=== PATIENT | male | born 1930 | race Caucasian/White ===

== ENCOUNTER 2016-08-02 20:04 | Inpatient (IN) | payer MEDICARE ==
[2016-08-02 20:56] LABS: Hematocrit 22 % (42-52); Mean Corpuscular HGB Conc 33 g/dl (31-36); Mean Corpuscular Hemoglobin 31 pg (27-31); Mean Corpuscular Volume 95 fL (80-94); Mean Platelet Volume 7 um3 (7.4-10.4); Red Blood Count 2.26 10^6/ul (4.0-5.4); Red Cell Distribution Width 15 % (10.5-15); White Blood Count 9.1 10^3/ul (3.5-10.8)
[2016-08-02 21:12] LABS: ALT 9 U/L (7-52); AST 12 U/L (13-39); Albumin 2.9 g/dL (3.2-5.2); Alkaline Phosphatase 44 U/L (34-104); Anion Gap 5 mmol/L (2-11); BUN/Creatinine Ratio 47.3 (8-20); Blood Urea Nitrogen 61 mg/dL (6-24); CO2 Carbon Dioxide 22 mmol/L (22-32); Chloride 108 mmol/L (101-111); EGFR African American 67.8 (>60); EGFR Non-African American 52.7 (>60); Glucose 119 mg/dL (70-100); Potassium 4.9 mmol/L (3.5-5.0); Sodium 135 mmol/L (133-145); Total Protein 4.9 g/dL (6.4-8.9)
--- NOTE | 2016-08-02 21:22 | HP ---
H&P (Free Text) History and Physical: PCP: Gonzalez Jimenez MD Date/Time of Evaluation: 08/02/2016 2100 CC: dark stools, dizziness HPI: Mr Bridges is an 85YO male poor historian who reports 2-3 days (his interjects 'weeks') of black pasty stool which he states has no odor (his interjects that they are much more foul smelling than typical). He denies abdominal pain, but his states he has been complaining of a stomache ache daily for the past several days. He denies HX bleeding, heart problems, liver problems, renal problems, and history of cancer. He takes 2 diclofenac QAM and 1 QHS along with an occasional OTC ibuprofen. He admits to drinking 2-4 beers/ day and 1-2 shots of vodka daily. He son-in-law (a retired highway patrolman) pulls me aside to inform that he is a "horrible boozer". Mr Bridges denies chest pain, SOB, N/V, palpitations, and F/C. Today he became light-headed aggravated by standing and "nearly passed out" prompting this evaluation. Additionally his family is concerned about worsening L low back/hip pain and an unintentional ~40 # weight loss over the past year. While in ED he was sent to radiology for an XRY of the L hip. When moving from the ED bed to the radiology table, he abruptly briefly syncopized to awaken reporting L shoulder pain and chest pressure for which a STAT ECG was negative for STEMI or ischemia. ~1week ago he was working on some land using a tractor near a drop off when the edge of the drop off gave way. He grabbed the tractor trying to prevent it from sliding over the edge and was pulled down by it sustaining abrasions and small skin tears to BLE, but denies head injury or LOC. In 2011 he was admitted for pneumonia with a necrotic mass in the RLL and separate mass in the LLL associated with significant weight loss at that time, but neither he nor his can give details. PMedHx COPD HTN RLL pulmonary abscess 2011 stable LLL lung mass unintentional weight loss alcoholism OA Medications Nursing to reconcile. Allergies Penicillins [PCN] Allergy (Verified 08/09/13 19:23) Itching PSurgHx umbilical & ventral hernia repairs ORIF R hip FX B ankle ORIFs SocHx: former smoker quit >20 years ago with ~50PYHX, active alcoholic admitting to 2-4beers/day and 1-2 shots of vodka, no recreational drugs; , lives with his ; [facility] [employer] [place] full code status FamHx: Mother passed in her 80s 2nd lung disease. 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 Otherwise positive for HTN, HLD , prostate CA, & rheumatoid arthritis. ROS: as above, otherwise reviewed and all were negative Constitutional: NAD, normally developed, well-nourished elderly white male vitals: Vital Signs Temp 37.0 C 08/02/16 20:15 Pulse 94 08/02/16 21:30 Resp 18 08/02/16 20:15 BP 139/94 08/02/16 21:30 Pulse Ox 95 08/02/16 21:30 Intake & Output 08/01/16 08/02/16 08/02/16 23:59 11:59 23:59 Weight 63.503 kg HEENM: atraumatic; sclera/conjunctiva: non-icteric/clear; hearing: clinically mild to moderately decreased; oropharynx: clear, mucosa tacky Neck: soft tissue: non-tender; thyroid: normal Pulmonary: clear to auscultation bilaterally, good aeration, no accessory muscle use CV: RR/RR, normal S1S2, no carotid bruit, no jugular venous distention, 2+ B DP/ PT, no edema Abdominal: soft, non-distended, non-tender, no rebound/guarding/rigidity, normoactive bowel sounds, no hepatosplenomegaly or masses, no costovertebral angle tenderness Musculoskeletal: general: grossly intact; gait: unstable Integumental: healing small skin abrasions and small avulsion to BLE without warmth, erythema, pain, discharge, or malodor Psychiatric orientation: AA&O to PPS affect: calm mood: cooperative eye contact: good content: unreliable memory: impaired responses: timely insight: fair to poor Testing: Lab Results 08/02/16 08/02/16 08/02/16 Range/Units 20:30 20:30 20:30 WBC 9.1 (3.5-10.8) 10^3/ul RBC 2.26 L (4.0-5.4) 10^6/ul RBC (Retic) 2.26 L (4.6-6.2) 10^6/ul Hgb 7.0 L (14.0-18.0) g/dl Hct 22 L (42-52) % HCT (Retic) 22 L (42-52) % MCV 95 H (80-94) fL MCH 31 (27-31) pg MCHC 33 (31-36) g/dl RDW 15 (10.5-15) % Plt Count 218 (150-450) 10^3/ul MPV 7 L (7.4-10.4) um3 Neut % (Auto) 79.3 (38-83) % Lymph % (Auto) 11.9 L (25-47) % Stanley % (Auto) 5.2 (1-9) % Eos % (Auto) 2.9 (0-6) % Baso % (Auto) 0.7 (0-2) % Absolute Neuts (auto) 7.2 (1.5-7.7) 10^3/ul Absolute Lymphs (auto) 1.1 (1.0-4.8) 10^3/ul Absolute Monos (auto) 0.5 (0-0.8) 10^3/ul Absolute Eos (auto) 0.3 (0-0.6) 10^3/ul Absolute Basos (auto) 0.1 (0-0.2) 10^3/ul Absolute Nucleated RBC 0.01 10^3/ul Nucleated RBC % 0.1 Retic Count, Calc 1.9 H (0.5-1.5) % Corrected Retic Count 0.9 (0.5-1.5) % Retic Shift Factor 2.0 Retic Production Index 0.50 Immature Retic Fraction 0.61 Mean Retic Volume 131.3 INR (Anticoag Therapy) 0.98 (0.89-1.11) APTT 45.6 H (26.0-36.3) seconds Sodium 135 (133-145) mmol/L Potassium 4.9 (3.5-5.0) mmol/L Chloride 108 (101-111) mmol/L Carbon Dioxide 22 (22-32) mmol/L Anion Gap 5 (2-11) mmol/L BUN 61 H (6-24) mg/dL Creatinine 1.29 H (0.67-1.17) mg/dL Est GFR ( Amer) 67.8 (>60) Est GFR (Non-Af Amer) 52.7 (>60) BUN/Creatinine Ratio 47.3 H (8-20) Glucose 119 H (70-100) mg/dL Calcium 8.0 L (8.6-10.3) mg/dL Iron 47 L (50-212) ug/dL TIBC 279 (250-450) mcg/dL % Saturation 17 (15-55) % Unsat Iron Binding 232 ug/dL Ferritin Pending Total Bilirubin 0.30 (0.2-1.0) mg/dL AST 12 L (13-39) U/L ALT 9 (7-52) U/L Alkaline Phosphatase 44 (34-104) U/L Lactate Dehydrogenase 117 L (140-271) U/L Troponin I 0.00 (<0.04) ng/mL Total Protein 4.9 L (6.4-8.9) g/dL Albumin 2.9 L (3.2-5.2) g/dL Globulin 2.0 (2-4) g/dL Albumin/Globulin Ratio 1.5 (1-3) Prealbumin 25 (18-38) mg/dL Vitamin B12 Pending Folate Pending Serum Alcohol < 10 (<10) mg/dL Blood Type Antibody Screen Crossmatch 08/02/16 Range/Units 20:30 WBC (3.5-10.8) 10^3/ul RBC (4.0-5.4) 10^6/ul RBC (Retic) (4.6-6.2) 10^6/ul Hgb (14.0-18.0) g/dl Hct (42-52) % HCT (Retic) (42-52) % MCV (80-94) fL MCH (27-31) pg MCHC (31-36) g/dl RDW (10.5-15) % Plt Count (150-450) 10^3/ul MPV (7.4-10.4) um3 Neut % (Auto) (38-83) % Lymph % (Auto) (25-47) % Stanley % (Auto) (1-9) % Eos % (Auto) (0-6) % Baso % (Auto) (0-2) % Absolute Neuts (auto) (1.5-7.7) 10^3/ul Absolute Lymphs (auto) (1.0-4.8) 10^3/ul Absolute Monos (auto) (0-0.8) 10^3/ul Absolute Eos (auto) (0-0.6) 10^3/ul Absolute Basos (auto) (0-0.2) 10^3/ul Absolute Nucleated RBC 10^3/ul Nucleated RBC % Retic Count, Calc (0.5-1.5) % Corrected Retic Count (0.5-1.5) % Retic Shift Factor Retic Production Index Immature Retic Fraction Mean Retic Volume INR (Anticoag Therapy) (0.89-1.11) APTT (26.0-36.3) seconds Sodium (133-145) mmol/L Potassium (3.5-5.0) mmol/L Chloride (101-111) mmol/L Carbon Dioxide (22-32) mmol/L Anion Gap (2-11) mmol/L BUN (6-24) mg/dL Creatinine (0.67-1.17) mg/dL Est GFR ( Amer) (>60) Est GFR (Non-Af Amer) (>60) BUN/Creatinine Ratio (8-20) Glucose (70-100) mg/dL Calcium (8.6-10.3) mg/dL Iron (50-212) ug/dL TIBC (250-450) mcg/dL % Saturation (15-55) % Unsat Iron Binding ug/dL Ferritin Total Bilirubin (0.2-1.0) mg/dL AST (13-39) U/L ALT (7-52) U/L Alkaline Phosphatase (34-104) U/L Lactate Dehydrogenase (140-271) U/L Troponin I (<0.04) ng/mL Total Protein (6.4-8.9) g/dL Albumin (3.2-5.2) g/dL Globulin (2-4) g/dL Albumin/Globulin Ratio (1-3) Prealbumin (18-38) mg/dL Vitamin B12 Folate Serum Alcohol (<10) mg/dL Blood Type A Positive Antibody Screen Negative Crossmatch See Detail initial ECG, personally reviewed: NSR rate 88, non-specific ST-T changes II/III/ AVF; repeat ECG after syncope: unchanged Impression: 85M presenting with upper GI hemorrhage & anemia w/ orthostasis; syncope DIAGNOSIS & PLAN Primary upper GI hemorrhage : IVFs : pantoprazole bolus/GTT : telemetry : clear liquid diet, NPO after 0400 for EGD : Hussein Keita MD GI consulted by me via phone, will evaluate in AM : supplemental oxygen : supportive care syncope 2nd above : as above : check ECHO to r/o valvular disease chest pressure : telemetry : trend troponin : no aspirin or heparin given GI hemorrhage : no beta mindy 2nd syncope and potential for hypovolemic shock : consider more thorough cardiac work up once GI bleeding stabilized unintentional weight loss w/ HX stable LLL mass and significant smoking HX : check CXR, consider CT W pending result Secondary alcoholism, active : WAM protocol with seizure prophylaxis suspect undiagnosed COPD : albuterol nebs PRN : mometasone/formoterol : tiotropium : incentive spirometry HTN : review medications once reconciled Admission Rational: inpatient for GI bleeding requiring telemetry, IVFs, & close monitoring to prevent terminal decompensation DVTp: SCDs, no anticoagulation 2nd GI bleeding Code Status: full, needs follow up HCP:
[2016-08-02 21:40] LABS: Alcohol < 10 mg/dL (<10)
[2016-08-02] MEDS ORDERED: Albuterol 2.5 MG/3 ML NEB.SOL* (0.083%) INH PRN (21:59)
[2016-08-02] MEDS ORDERED: CMCS: Melatonin (NF) 3 MG TAB PO PRN (21:59)
[2016-08-02] MEDS ORDERED: Morphine INJ* 2 MG/ML 1 ML SYRINGE IV PRN (22:03)
[2016-08-02] MEDS ORDERED: Ondansetron INJ* 2 MG/ML VIAL IV PRN (22:03)
[2016-08-02] MEDS ORDERED: PROCHLORPERAZINE INJ 5 MG/ML 2 ML VIAL IV PRN (22:03)
[2016-08-02 22:15] LABS: Prealbumin 25 mg/dL (18-38)
[2016-08-02 22:18] LABS: Immature Retic Fraction 0.61
[2016-08-02 22:19] LABS: Corrected Retic Count 0.9 % (0.5-1.5)
[2016-08-02 22:29] LABS: Iron 47 ug/dL (50-212); Total Iron Binding Capacity 279 mcg/dL (250-450); Transferrin 199 mg/dL (203-362)
[2016-08-02 22:50] LABS: Ferritin 24.6 ng/mL (24-336)
[2016-08-02 22:54] LABS: Folate > 20.00 ng/mL (>3.99)
[2016-08-02] MEDS: Pantoprazole IV* 80 MG in NS 0.9% 250 ML* 250 ML IVPB SCH (22:54)
[2016-08-02 22:55] LABS: Vitamin B12 214 pg/mL (180-914)
[2016-08-02] MEDS ORDERED: Thiamine IV* 100 MG/ML 2 ML VIAL IM ONE (22:58)
[2016-08-02] MEDS ORDERED: Pantoprazole IV* 40 MG ONE (23:01)
[2016-08-02] MEDS: LORazepam TAB(*) 1 MG PO SCH (23:30)
[2016-08-03] MEDS: LORazepam TAB(*) 1 MG PO SCH ×3 (04:37→16:55)
[2016-08-03] MEDS: NS 0.9% 1000 ML* 1,000 ML IV SCH ×3 (06:00→21:30)
[2016-08-03 06:53] LABS: Hematocrit 23 % (42-52); Hemoglobin 7.7 g/dl (14.0-18.0); Mean Corpuscular HGB Conc 33 g/dl (31-36); Mean Corpuscular Hemoglobin 31 pg (27-31); Mean Corpuscular Volume 91 fL (80-94); Mean Platelet Volume 7 um3 (7.4-10.4); Red Blood Count 2.52 10^6/ul (4.0-5.4); Red Cell Distribution Width 16 % (10.5-15); White Blood Count 9.7 10^3/ul (3.5-10.8)
[2016-08-03 07:04] LABS: BUN/Creatinine Ratio 57.3 (8-20); Calcium 7.3 mg/dL (8.6-10.3); EGFR African American 87.9 (>60); EGFR Non-African American 68.3 (>60); Potassium 4.3 mmol/L (3.5-5.0)
[2016-08-03] MEDS: Pantoprazole IV* 80 MG in NS 0.9% 250 ML* 250 ML IVPB SCH ×2 (08:31→17:53)
[2016-08-03] MEDS: Multivitamins/Minerals TAB PO SCH (08:54)
[2016-08-03] MEDS ORDERED: Folic Acid TAB* 1 MG PO SCH (09:00)
[2016-08-03] MEDS ORDERED: Thiamine TAB* 100 MG TAB PO SCH (09:00)
[2016-08-03] MEDS ORDERED: Spiriva Inhaler DEVICE* 1 EACH DEVICE INH ONE (09:00)
--- NOTE | 2016-08-03 09:33 | RAD ---
Indication: Weight loss. Upper GI hemorrhage. Anemia. Comparison: October 06, 1999 1216. Technique: Upright AP 0900 hours Report: Elevated lung volumes and both diffuse mild prominence of the interstitial markings and patchy rarefaction of the mid to upper lung zone interstitial markings. Mild chronic linear subsegmental atelectasis or pleural-parenchymal scarring at the bilateral mid to lower lung zones. Probable small RIGHT pleural effusion. Negative for cardiomegaly. Unremarkable central pulmonary vasculature and mediastinal contours. Negative for free air beneath the diaphragm. IMPRESSION: Stigmata of chronic obstructive pulmonary disease and emphysema. No acute cardiopulmonary process evident.
[2016-08-03] MEDS: Tiotropium CAP.INH* CAP.INH/18 MCG INH SCH (11:23)
[2016-08-03] MEDS: Mometasone/Formoter 200/5 MDI INH SCH ×2 (11:23→20:17)
[2016-08-03] MEDS ORDERED: Midazolam* 1 MG/ML 10 ML VIAL (10 MG) ONE (12:02)
[2016-08-03] MEDS ORDERED: Meperidine SYRINGE* 50 MG/ML ONE (12:02)
--- NOTE | 2016-08-03 12:52 | ECHO ---
Patient: MORGAN BRITTON [facility] Rec#: [id number] : 1930 Date: 08/03/2016 Age: 85y Height: 172.72 cm / 68.0 in Weight: 63.5 kg / 140.0 lbs Sex: M BSA: 1.76 Room#: ICU-2 Admit Date#: 08/02/2016 Type: Inpatient Referring: Ivan Pastor MD Reading: Trent Meyer DO Waiter/Waitress Formal: Breanna Bedoya YAMIL CC: Rolo Jimenez MD Transthoracic Echocardiogram Indication: Syncope BP: 125/58 HR: 88 Rhythm: NSR with PACs Findings History: GI bleed,COPD,lung masses, former smoker,ETOH. Technical Comments: The study is technically limited due to the patient's history of COPD. Completed at 0833. Left Ventricle: The left ventricular chamber size is normal. Mild concentric left ventricular hypertrophy is observed. Global left ventricular wall motion and contractility are within normal limits. There is normal left ventricular systolic function. The estimated ejection fraction is 60-65%. The assessment of diastolic function is non-diagnostic. Left Atrium: The left atrium is slightly dilated. Right Ventricle: The right ventricular chamber size and systolic function are within normal limits. Right Atrium: The right atrial cavity size is normal. Aortic Valve: The aortic valve is trileaflet. There is evidence of aortic sclerosis without stenosis. There is no evidence of aortic regurgitation. There is no evidence of aortic stenosis. Mitral Valve: The mitral valve leaflets are mildly thickened. There is trace to mild mitral regurgitation. There is no evidence of mitral stenosis. Tricuspid Valve: The tricuspid valve leaflets are normal. There is mild tricuspid regurgitation. There is evidence of mild pulmonary hypertension. There is no tricuspid stenosis. Pulmonic Valve: The pulmonic valve structure is not well visualized. There is no evidence of pulmonic regurgitation. There is no pulmonic stenosis. Pericardium: There is no significant pericardial effusion. Aorta: There is mild dilatation of the ascending aorta. The aortic arch is not well visualized. There is mild dilatation of the aortic root. Pulmonary Artery: The main pulmonary artery is not well visualized. Venous: The venous system is not well visualized. Conclusions The left ventricular chamber size is normal. Mild concentric left ventricular hypertrophy is observed. Global left ventricular wall motion and contractility are within normal limits. The estimated LV ejection fraction is 60-65%. The left atrium is slightly dilated. The right ventricular chamber size and systolic function are within normal limits. There is evidence of aortic sclerosis without stenosis. There is no more than mild valvular regurgitation noted There is evidence of mild pulmonary hypertension. There is mild dilatation of the ascending aorta and aortic root. No prior studies available for comparison at time of interpretation Measurements Name Value Normal Range RVIDd (AP) 2D 2.3 cm (0.9 - 2.6) RA (A4C)W 2.8 cm (2.9 - 4.6) IVSd (2D) 1.2 cm (0.6 - 1) LVPWd (2D) 1.1 cm (0.6 - 1) LVIDd (2D) 2.6 cm (3.6 - 5.4) LVIDs (2D) 2 cm - LV FS (2D) 23 % (25 - 45) Aortic Annulus 2.2 cm (1.4 - 2.6) Ao root diameter (2D) 4 cm (2.1 - 3.5) Ascending Ao 4.2 cm (2.1 - 3.4) LA dimension (AP) 2D 4.6 cm (2.3 - 3.8) LAd ISD 4CH 4.8 cm (2.9 - 5.3) LA ISD 4CH W 4.4 cm (2.5 - 4.5) Name Value Normal Range LA ESV SP 4CH (A/L) 55 ml - LA ESV SP 2CH (A/L) 46 ml - LA ESV BP (A/L) 55 ml - LA ESV BP (A/L) index 31.16 ml/m2 - LA ESV SP 4CH (MOD) 49 ml - LA ESV SP 2CH (MOD) 40 ml - Name Value Normal Range MV E-wave Vmax 1.1 m/sec - MV deceleration time 161 msec - LV septal e' Vmax 0.06 m/sec - LV lateral e' Vmax 0.17 m/sec - LV E:e' septal ratio 18.33 ratio - LV E:e' lateral ratio 6.47 ratio - Name Value Normal Range AV Vmax 1.5 m/sec - AV VTI 30 cm - AV peak gradient 9.56 mmHg - AV mean gradient 5.03 mmHg - LVOT diameter 2.3 cm - LVOT Vmax 1.1 m/sec - LVOT VTI 22.1 cm - LVOT peak gradient 4.63 mmHg - LVOT mean gradient 1.87 mmHg - NA (continuity Vmax) 3.3 cm2 - NA (continuity VTI) 3 cm2 - Name Value Normal Range TR Vmax 2.7 m/sec - TR peak gradient 30 mmHg - RAP 8 mmHg - RVSP 38 mmHg - Name Value Normal Range PV Vmax 1 m/sec - PV peak gradient 4 mmHg -
--- NOTE | 2016-08-03 15:26 | PN ---
Subjective Date of Service: 08/03/16 Interval History: . saw patient this AM and watched EGD with Dr. Keita. No active bleeding, though culprit vessels observed c/w UGIB. patient stable. Getting 3rd/4th units PRBC -- f/u CBC pending. hemodynamically stable. denies pain at this time. IV PPI ongoing. . Family History: Unchanged from Admission Social History: Unchanged from Admission Past Medical History: Unchanged from Admission Objective Active Medications: . Acetaminophen (Tylenol Tab*) 650 mg PO Q6H PRN PRN Reason: FEVER/PAIN Albuterol (Ventolin 2.5 Mg/3 Ml Neb.Anyi*) 2.5 mg INH Q2H PRN PRN Reason: SOB/WHEEZING Folic Acid (Folvite Tab*) 1 mg PO DAILY [facility] Last Admin: 08/03/16 08:54 Dose: Not Given Pantoprazole Sodium 80 mg/ (Sodium Chloride) 250 mls @ 25 mls/hr IVPB Q10H [facility] Last Admin: 08/03/16 08:31 Dose: 25 mls/hr Sodium Chloride (Ns 0.9% 1000 Ml*) 1,000 mls @ 125 mls/hr IV PER RATE [facility] Last Admin: 08/03/16 13:29 Dose: 125 mls/hr Lorazepam (Ativan Inj*) 0 mg IV .PER WAM SCORE [facility] PRN Reason: Protocol Lorazepam (Ativan Tab(*)) 2 mg PO Q12H [facility] PRN Reason: Taper Stop: 08/05/16 18:59 Last Admin: 08/03/16 08:31 Dose: Not Given Melatonin (Melatonin (Nf)) 3 mg PO BEDTIME PRN; Protocol PRN Reason: Sleep Mometasone Furoate/Formoterol Fumar (Dulera 200/5 Mdi*) 2 puff INH BID [facility] Last Admin: 08/03/16 11:23 Dose: 2 inh Morphine Sulfate (Morphine Inj (Syringe)*) 1 mg IV Q2H PRN PRN Reason: PAIN Multivitamins/Minerals (Theragran/Minerals Tab*) 1 tab PO DAILY [facility] Last Admin: 08/03/16 08:54 Dose: Not Given Ondansetron HCl (Zofran Inj*) 4 mg IV Q6H PRN PRN Reason: NAUSEA Pantoprazole Sodium (Protonix Iv*) 80 mg IV ED ONCE ONE Stop: 08/03/16 21:56 Last Admin: 08/02/16 23:10 Dose: 80 mg Prochlorperazine Edisylate (Compazine Inj*) 10 mg IV Q6H PRN PRN Reason: NAUSEA Thiamine HCl (Vitamin B-1 Tab*) 100 mg PO DAILY [facility] Last Admin: 08/03/16 08:54 Dose: Not Given Tiotropium [place] (Spiriva Cap.Inh*) 1 cap INH DAILY [facility] Last Admin: 08/03/16 11:23 Dose: 1 inh . Vital Signs 08/02/16 08/02/16 08/02/16 21:26 21:30 21:42 Temperature Pulse Rate 93 94 97 Respiratory Rate Blood Pressure 94/74 139/94 (mmHg) O2 Sat by Pulse 97 95 96 Oximetry 08/02/16 08/02/16 08/02/16 21:46 21:59 22:12 Temperature 98.2 F Pulse Rate 90 94 Respiratory 14 Rate Blood Pressure 91/46 91/54 (mmHg) O2 Sat by Pulse 100 100 Oximetry Appearance: NAD at this time. Eyes: No Scleral Icterus, PERRLA Ears/Nose/Mouth/Throat: NL Teeth, Lips, Gums Respiratory: Symmetrical Chest Expansion and Respiratory Effort Cardiovascular: NL Sounds; No Murmurs; No JVD Abdominal: NL Sounds; No Tenderness; No Distention Extremities: No Edema Skin: No Rash or Ulcers Neurological: NL Sensation Lines/Tubes/Other Access: Clean, Dry and Intact Peripheral IV Nutrition: - - NPO (EGD) Result Diagrams: 08/03/16 06:29 08/03/16 06:29 Microbiology and Other Data: Microbiology 08/02/16 22:45 Nasal Screen MRSA (PCR)(ELGIN) - Final Nasal Mrsa Negative Assess/Plan/Problems-Billing . Assessment: 85 yo man with upper GI bleed in setting of significan ETOH and NSAID use. PMH notable for: - COPD - HTN - RLL pulmonary abscess in 2011 (? aspiration) - Stable LLL lung mass - Unintentional weight loss last year - Alcoholism - Osteoarthritis - Patient Problems (1) Anemia due to acute blood loss Current Visit: Yes Status: Acute Priority: High Code(s): D62 - ACUTE POSTHEMORRHAGIC ANEMIA Comment: - s/p 4 units prbc - following h/h - keep 2-3 PIV's - EGD results noted; appreciate GI consult. (2) Upper GI bleed Current Visit: Yes Status: Acute Code(s): K92.2 - GASTROINTESTINAL HEMORRHAGE, UNSPECIFIED SNOMED Code(s): 56669855 Comment: - IV PPI gtt ongoing. - combination of NSAIDS and etoh use. (3) Alcoholism /alcohol abuse Current Visit: Yes Status: Acute Code(s): F10.20 - ALCOHOL DEPENDENCE, UNCOMPLICATED SNOMED Code(s): 5815603 Comment: - SW consult ordered (4) COPD (chronic obstructive pulmonary disease) Current Visit: Yes Status: Acute Code(s): J44.9 - CHRONIC OBSTRUCTIVE PULMONARY DISEASE, UNSPECIFIED SNOMED Code(s): 79405725
--- NOTE | 2016-08-03 15:41 | ED ---
Ana Anderson Auryana, scribed for Daljit Cedeño MD on 08/02/16 at 2124 . GI/ HPI - HPI Summary HPI Summary: Patient is an 85-year-old male presenting to the ED with a CC of black stools for the past few weeks. Pt's and son-in-law are present. Pt has developed associated symptoms include fatigue, dizziness, SOB, and abdominal pain. Pt also notes mid-sternal chest pain intermittently starting yesterday. Pt denies any hemoptysis or hematemesis. Pt also reports left posterior hip pain for the past few weeks. He does note recent diffuse abrasions from an accident. Hx arthritis - takes Motrin. He denies taking any blood thinners. He denies Hx CA. Pt drinks daily per son-in-law - approximately a six pack and bottle of wine daily. FHx spinal tumor - daughter. Pt is followed by Dr. Jimenez. - History of Current Complaint Chief Complaint: EDGIBleed Time Seen by Provider: 08/02/16 20:17 Stated Complaint: NEAR SYNCOPE Hx Obtained From: Patient, Family/Cement Finishing Supervisor Onset/Duration: Started Weeks Ago, Atraumatic, Still Present Timing: Intermittent Severity: Moderate Pain Intensity: 2 Location of Pain: Diffuse Associated Signs and Symptoms: Positive: Dizziness, Black Tarry Stool, Abdominal Pain, Chest Pain - Allergy/Home Medications Allergies/Adverse Reactions: Allergies Allergy/AdvReac Type Severity Reaction Status Date / Time Penicillins [PCN] Allergy Itching Verified 08/09/13 19:23 PMH/Surg Hx/FS Hx/Imm Hx Respiratory History: Reports: Hx Chronic Obstructive Pulmonary Disease (COPD) - Cancer History Cancer Type, Location and Year: Denies Hx CA Infectious Disease History: No Infectious Disease History: Denies: Traveled Outside the [place] in Last 30 Days - Family History Known Family History: Positive: Other - Spinal tumor - Social History Occupation: Retired Alcohol Use: Daily Review of Systems Positive: Fatigue. Negative: Fever, Chills Negative: Erythema Negative: Sore Throat Positive: Chest Pain Positive: Shortness Of Breath. Negative: Cough Gastrointestinal: Other - melena Positive: Abdominal Pain. Negative: Vomiting, Nausea Negative: dysuria, hematuria Positive: Arthralgia - L hip. Negative: Myalgia, Edema Skin: Other - abrasions Negative: Rash Neurological: Other - Dizziness All Other Systems Reviewed And Are Negative: Yes Physical Exam - Summary Physical Exam Summary: Constitutional: Well-developed, Well-nourished, Alert. (-) Distressed Skin: Warm, Dry HENT: Normocephalic; Atraumatic Eyes: Conjunctiva normal Neck: Musculoskeletal ROM normal neck. (-) JVD, (-) Stridor, (-) Tracheal deviation Cardio: Rhythm regular, rate normal, Heart sounds normal; Intact distal pulses; The pedal pulses are 2+ and symmetric. Radial pulses are 2+ and symmetric. (-) Murmur Pulmonary/Chest wall: Effort normal. (-) Respiratory distress, (-) Wheezes, (-) Rales Abd: Soft, (-) Tenderness, (-) Distension, (-) Guarding, (-) Rebound. Rectal exam: melena Musculoskeletal: (-) Edema. Irregular bony prominence over the left posterior hip. Lymph: (-) Cervical adenopathy Neuro: Alert, Oriented x3 Psych: Mood and affect Normal Triage Information Reviewed: Yes Vital Signs On Initial Exam: Initial Vitals Temp 98.6 F 08/02/16 20:13 Vital Signs Reviewed: Yes - Joesph Coma Scale Coma Scale Total: 15 Diagnostics - Vital Signs Vital Signs Temp Pulse Resp BP Pulse Ox 08/02/16 20:46 90 97 08/02/16 20:15 98.6 F 90 18 110/54 98 08/02/16 20:13 98.6 F - Laboratory Lab Results: Lab Results 08/02/16 08/02/16 Range/Units 20:30 20:30 WBC 9.1 (3.5-10.8) 10^3/ul RBC 2.26 L (4.0-5.4) 10^6/ul Hgb 7.0 L (14.0-18.0) g/dl Hct 22 L (42-52) % MCV 95 H (80-94) fL MCH 31 (27-31) pg MCHC 33 (31-36) g/dl RDW 15 (10.5-15) % Plt Count 218 (150-450) 10^3/ul MPV 7 L (7.4-10.4) um3 Neut % (Auto) 79.3 (38-83) % Lymph % (Auto) 11.9 L (25-47) % [place] % (Auto) 5.2 (1-9) % Eos % (Auto) 2.9 (0-6) % Baso % (Auto) 0.7 (0-2) % Absolute Neuts (auto) 7.2 (1.5-7.7) 10^3/ul Absolute Lymphs (auto) 1.1 (1.0-4.8) 10^3/ul Absolute Monos (auto) 0.5 (0-0.8) 10^3/ul Absolute Eos (auto) 0.3 (0-0.6) 10^3/ul Absolute Basos (auto) 0.1 (0-0.2) 10^3/ul Absolute Nucleated RBC 0.01 10^3/ul Nucleated RBC % 0.1 Blood Type A Positive Antibody Screen Pending Result Diagrams: 08/02/16 20:30 08/02/16 20:30 Lab Statement: Any lab studies that have been ordered have been reviewed, and results considered in the medical decision making process. - EKG 20:22 Cardiac Rate: NL - at 88 bpm EKG Rhythm: Sinus Rhythm EKG Interpretation: Borderline T abnormalities, inferior leads. No STEMI Re-Evaluation - Re-Evaluation First Eval Re-Evaluation Time: 22:10 Change: Worse Comment: Patient was in XR being moved over when he had a syncopal episode. Afterwards, pt complained of left sided shoulder and chest pain which he thought was somewhat reproducible GIGU Course/Dx - Course Assessment/Plan: An 85 y/o M presents to the ED with a CC of melena for the past few weeks, associated with fatigue and dizziness. At XR, pt has a syncopal episode. EKG shows no STEMI. Blood work shows hemoglobin of 7 and hematocrit of 22. Stool occult blood is negative. Case discussed with Dr. Pastor who agrees to admit patient for further work up and management. The pt was brought upstairs prior to further work up of his shoulder and hip pain. - Diagnoses Provider Diagnoses: Syncope, Symptomatic anemia, GI bleeding - Physician Notifications Discussed Care Of Patient With: Ivan Pastor Time Discussed With Above Provider: 21:19 - Agrees to admit. Made Dr. Keita aware of patient. Discharge - Discharge Plan Condition: Good Disposition: ADMITTED TO [facility] documentation as recorded by the scribAna keating Auryana accurately reflects the service I personally performed and the decisions made by me, Daljit Cedeño MD.
[2016-08-03 18:16] LABS: Hematocrit 28 % (42-52); Hemoglobin 9.3 g/dl (14.0-18.0); Mean Corpuscular HGB Conc 33 g/dl (31-36); Mean Corpuscular Hemoglobin 30 pg (27-31); Mean Corpuscular Volume 90 fL (80-94); Mean Platelet Volume 7 um3 (7.4-10.4); Red Cell Distribution Width 16 % (10.5-15); White Blood Count 8.3 10^3/ul (3.5-10.8)
[2016-08-03] MEDS: Folic Acid TAB* 1 MG PO SCH (20:29)
[2016-08-03] MEDS: Thiamine TAB* 100 MG TAB PO SCH (20:30)
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
[2016-08-03] MEDS ORDERED: Pantoprazole IV* 40 MG IV ONE (21:55)
--- NOTE | 2016-08-04 01:35 | PRO ---
DATE: 08/03/16 - ROOM #ICU-02 REFERRING PHYSICIAN: Christian Mays; Rolo Jimenez * PROCEDURE: Upper gastrointestinal endoscopy and gastric biopsy for CLOtest. INDICATION: Upper gastrointestinal bleeding with melena. He has been on diclofenac regularly and sporadic p.r.n. ibuprofen for many years. ENDOSCOPIST: Dr. Keita MEDICATIONS: Midazolam 4, meperidine 25. FINDINGS: He is an older man, quite vague. Consent was obtained from him and his together. EGD: Larynx - narrow, limited views. Esophagus - difficult entry as initiation of swallow appeared delayed. No diverticulum was seen, but getting through the cricopharyngeal area was more difficult than average. The mucosa then in the upper, mid and lower esophagus was normal. The EJ junction was at 39 and normal. There were no erosions. Stomach - generally normal mucosa in the cardia, fundus and body. No erosions and no ulcer was seen. There was no blood. The antrum appeared normal. The pylorus was wide open and did not show any function. Duodenum - the pylorus is wide open and intact without any ulceration. The bulb appeared initially normal, but there was considerable bubbling; and, when that was dispersed an ulcer was revealed at the apex of the bulb. It was substantial moderately deep 14 to 15 mm triangular ulcer with a small red spot at its base. It was relatively flat and there was no bleeding and no adherent clot. On the opposite wall, there was a 6 to 7 mm ulceration and couple of centimeters further down at the apex of the bulb at noon a liner erosion. The third and fourth portions of the duodenum were normal. Again, there was no bleeding. Coming back, a CLOtest was taken of the gastric body. IMPRESSION: 1. Duodenal ulcer - several, not currently bleeding and he is on a PPI drip. Plan will be to continue oral PPI as an outpatient and no NSAIDs, consideration of repeat endoscopy in 2 months at which time a sporadic NSAID might be considered if that would proved to be clinically useful and could be monitored by others 2. Weight loss - no cause seen on this exam and as the traces it back to the time when Dr. Amanda demonstrated resolution of a lung infection via CT scan may be 4 to 5 years in duration. Addendum: Clotest positive - to be treated when stable enough to cooperate [id number]/[facility] #: [id number] [place]
[2016-08-04] MEDS: LORazepam TAB(*) 1 MG PO SCH ×2 (02:50→15:45)
[2016-08-04] MEDS: Pantoprazole IV* 80 MG in NS 0.9% 250 ML* 250 ML IVPB SCH ×2 (02:52→15:30)
[2016-08-04] MEDS: NS 0.9% 1000 ML* 1,000 ML IV SCH ×3 (04:37→20:13)
[2016-08-04 06:02] LABS: Hematocrit 26 % (42-52); Hemoglobin 8.9 g/dl (14.0-18.0); Mean Corpuscular HGB Conc 34 g/dl (31-36); Mean Corpuscular Hemoglobin 31 pg (27-31); Mean Corpuscular Volume 89 fL (80-94); Mean Platelet Volume 7 um3 (7.4-10.4); Red Blood Count 2.91 10^6/ul (4.0-5.4); Red Cell Distribution Width 16 % (10.5-15); White Blood Count 7.5 10^3/ul (3.5-10.8)
[2016-08-04 06:55] LABS: BUN/Creatinine Ratio 31.5 (8-20); Calcium 7.7 mg/dL (8.6-10.3); EGFR Non-African American 80.9 (>60); Potassium 3.8 mmol/L (3.5-5.0)
[2016-08-04] MEDS: Tiotropium CAP.INH* CAP.INH/18 MCG INH SCH (08:01)
[2016-08-04] MEDS: Mometasone/Formoter 200/5 MDI INH SCH ×2 (08:01→20:12)
[2016-08-04] MEDS: Thiamine TAB* 100 MG TAB PO SCH (08:09)
[2016-08-04] MEDS: Acetaminophen TAB* 325 MG PO PRN (08:09)
[2016-08-04] MEDS: Multivitamins/Minerals TAB PO SCH (08:09)
[2016-08-04] MEDS: LORazepam INJ* 2 MG/ML 1 ML VIAL IV SCH ×3 (08:10→22:07)
[2016-08-04] MEDS: Folic Acid TAB* 1 MG PO SCH (08:10)
[2016-08-04] MEDS ORDERED: LORazepam TAB(*) 1 MG ONE (15:42)
--- NOTE | 2016-08-04 19:46 | PN ---
Subjective Date of Service: 08/04/16 Interval History: . at bedside. Pt scoring for WAM. Transfer to medical floor. . Family History: Unchanged from Admission Social History: Unchanged from Admission Past Medical History: Unchanged from Admission Objective Active Medications: . Acetaminophen (Tylenol Tab*) 650 mg PO Q6H PRN PRN Reason: FEVER/PAIN Last Admin: 08/04/16 08:09 Dose: 650 mg Albuterol (Ventolin 2.5 Mg/3 Ml Neb.Anyi*) 2.5 mg INH Q2H PRN PRN Reason: SOB/WHEEZING Folic Acid (Folvite Tab*) 1 mg PO DAILY [facility] Last Admin: 08/04/16 08:10 Dose: 1 mg Sodium Chloride (Ns 0.9% 1000 Ml*) 1,000 mls @ 125 mls/hr IV PER RATE [facility] Last Admin: 08/04/16 13:13 Dose: 125 mls/hr Lorazepam (Ativan Inj*) 0 mg IV .PER WAM SCORE [facility] PRN Reason: Protocol Last Admin: 08/04/16 08:10 Dose: 2 mg Lorazepam (Ativan Tab(*)) 2 mg PO Q12H [facility] PRN Reason: Taper Stop: 08/05/16 18:59 Last Admin: 08/04/16 15:45 Dose: 2 mg Melatonin (Melatonin (Nf)) 3 mg PO BEDTIME PRN; Protocol PRN Reason: Sleep Mometasone Furoate/Formoterol Fumar (Dulera 200/5 Mdi*) 2 puff INH BID [facility] Last Admin: 08/04/16 08:01 Dose: 2 inh Morphine Sulfate (Morphine Inj (Syringe)*) 1 mg IV Q2H PRN PRN Reason: PAIN Multivitamins/Minerals (Theragran/Minerals Tab*) 1 tab PO DAILY [facility] Last Admin: 08/04/16 08:09 Dose: 1 tab Ondansetron HCl (Zofran Inj*) 4 mg IV Q6H PRN PRN Reason: NAUSEA Prochlorperazine Edisylate (Compazine Inj*) 10 mg IV Q6H PRN PRN Reason: NAUSEA Thiamine HCl (Vitamin B-1 Tab*) 100 mg PO DAILY [facility] Last Admin: 08/04/16 08:09 Dose: 100 mg Tiotropium [place] (Spiriva Cap.Inh*) 1 cap INH DAILY [facility] Last Admin: 08/04/16 08:01 Dose: 1 inh Vital Signs 08/03/16 08/03/16 08/03/16 20:00 20:22 21:00 Temperature 99.3 F Pulse Rate 80 81 82 Respiratory 16 15 15 Rate Blood Pressure 132/59 145/65 (mmHg) O2 Sat by Pulse 99 100 99 Oximetry 08/03/16 08/03/16 08/03/16 22:00 23:00 23:36 Temperature Pulse Rate 83 80 82 Respiratory 15 15 16 Rate Blood Pressure 116/84 134/57 (mmHg) O2 Sat by Pulse 99 99 95 Oximetry Oxygen Devices in Use Now: Nasal Cannula Appearance: confused / WAM'ing. Ears/Nose/Mouth/Throat: Clear Oropharnyx Neck: Trachea Midline Respiratory: Symmetrical Chest Expansion and Respiratory Effort Cardiovascular: NL Sounds; No Murmurs; No JVD Abdominal: NL Sounds; No Tenderness; No Distention Extremities: No Edema Skin: No Rash or Ulcers Neurological: - - A&Ox1 (self) Lines/Tubes/Other Access: Clean, Dry and Intact Peripheral IV Nutrition: Taking PO's Result Diagrams: 08/04/16 05:50 08/04/16 05:50 Additional Lab and Data: . Microbiology and Other Data: Microbiology 08/02/16 22:45 Nasal Screen MRSA (PCR)([facility]) - Final Nasal Mrsa Negative Assess/Plan/Problems-Billing . Assessment: 85 yo man with upper GI bleed in setting of significant ETOH and NSAID use. PMH notable for: - COPD - HTN - RLL pulmonary abscess in 2011 (? aspiration) - Stable LLL lung mass - Unintentional weight loss last year - Alcoholism - Osteoarthritis - Patient Problems (1) Anemia due to acute blood loss Current Visit: Yes Status: Acute Priority: High Code(s): D62 - ACUTE POSTHEMORRHAGIC ANEMIA Comment: - s/p 4 units prbc - following h/h - keep 2-3 PIV's - EGD results noted; appreciate GI consult. (2) Upper GI bleed Current Visit: Yes Status: Acute Code(s): K92.2 - GASTROINTESTINAL HEMORRHAGE, UNSPECIFIED SNOMED Code(s): 67870087 Comment: - IV PPI gtt ongoing. - combination of NSAIDS and etoh use. (3) Alcoholism /alcohol abuse Current Visit: Yes Status: Acute Code(s): F10.20 - ALCOHOL DEPENDENCE, UNCOMPLICATED SNOMED Code(s): 2698338 Comment: - SW consult ordered (4) COPD (chronic obstructive pulmonary disease) Current Visit: Yes Status: Acute Code(s): J44.9 - CHRONIC OBSTRUCTIVE PULMONARY DISEASE, UNSPECIFIED SNOMED Code(s): 04782287 (5) Alcohol withdrawal delirium Current Visit: Yes Status: Acute Priority: High Code(s): F10.231 - ALCOHOL DEPENDENCE WITH WITHDRAWAL DELIRIUM Comment: - On [facility] protocol
[2016-08-05] MEDS: LORazepam INJ* 2 MG/ML 1 ML VIAL IV SCH ×4 (00:44→20:40)
[2016-08-05] MEDS: LORazepam TAB(*) 1 MG PO SCH (03:00)
[2016-08-05] MEDS: NS 0.9% 1000 ML* 1,000 ML IV SCH ×3 (04:05→20:04)
[2016-08-05] MEDS: Mometasone/Formoter 200/5 MDI INH SCH ×2 (07:51→21:44)
[2016-08-05] MEDS: Tiotropium CAP.INH* CAP.INH/18 MCG INH SCH (07:51)
[2016-08-05] MEDS: Thiamine TAB* 100 MG TAB PO SCH (11:56)
[2016-08-05] MEDS: Multivitamins/Minerals TAB PO SCH (11:56)
[2016-08-05] MEDS: Folic Acid TAB* 1 MG PO SCH (11:56)
--- NOTE | 2016-08-05 16:21 | PN ---
Subjective Date of Service: 08/05/16 Interval History: Increased delerium Seen again later in the day when developed hypoxia. Placed on CPAP with relief Still requiring ativan for withdrawal Family History: Unchanged from Admission Social History: Unchanged from Admission Past Medical History: Unchanged from Admission Objective Active Medications: Acetaminophen (Tylenol Tab*) 650 mg PO Q6H PRN PRN Reason: FEVER/PAIN Last Admin: 08/04/16 08:09 Dose: 650 mg Albuterol (Ventolin 2.5 Mg/3 Ml Neb.Anyi*) 2.5 mg INH Q2H PRN PRN Reason: SOB/WHEEZING Folic Acid (Folvite Tab*) 1 mg PO DAILY [facility] Last Admin: 08/05/16 11:56 Dose: 1 mg Sodium Chloride (Ns 0.9% 1000 Ml*) 1,000 mls @ 125 mls/hr IV PER RATE [facility] Last Admin: 08/05/16 11:46 Dose: 125 mls/hr Lorazepam (Ativan Inj*) 0 mg IV .PER WAM SCORE [facility] PRN Reason: Protocol Melatonin (Melatonin (Nf)) 3 mg PO BEDTIME PRN; Protocol PRN Reason: Sleep Mometasone Furoate/Formoterol Fumar (Dulera 200/5 Mdi*) 2 puff INH BID [facility] Last Admin: 08/05/16 07:51 Dose: 2 puff Morphine Sulfate (Morphine Inj (Syringe)*) 1 mg IV Q2H PRN PRN Reason: PAIN Multivitamins/Minerals (Theragran/Minerals Tab*) 1 tab PO DAILY [facility] Last Admin: 08/05/16 11:56 Dose: 1 tab Ondansetron HCl (Zofran Inj*) 4 mg IV Q6H PRN PRN Reason: NAUSEA Prochlorperazine Edisylate (Compazine Inj*) 10 mg IV Q6H PRN PRN Reason: NAUSEA Thiamine HCl (Vitamin B-1 Tab*) 100 mg PO DAILY [facility] Last Admin: 08/05/16 11:56 Dose: 100 mg Tiotropium [place] (Spiriva Cap.Inh*) 1 cap INH DAILY [facility] Last Admin: 08/05/16 07:51 Dose: 1 inh Vital Signs 08/04/16 08/04/16 08/04/16 17:00 18:00 18:54 Temperature 97.4 F Pulse Rate 101 69 Respiratory 23 18 18 Rate Blood Pressure 110/64 (mmHg) O2 Sat by Pulse 100 88 Oximetry 08/04/16 08/04/16 08/04/16 18:56 19:30 19:32 Temperature 97.4 F 97.1 F Pulse Rate 69 100 Respiratory 18 22 20 Rate Blood Pressure 110/64 132/72 (mmHg) O2 Sat by Pulse 99 100 Oximetry 08/04/16 08/04/16 08/04/16 19:43 20:14 20:43 Temperature Pulse Rate 92 Respiratory 20 17 18 Rate Blood Pressure (mmHg) O2 Sat by Pulse 97 Oximetry 08/04/16 08/04/16 08/04/16 22:06 22:07 23:07 Temperature Pulse Rate 67 Respiratory 22 18 Rate Blood Pressure 122/55 110/51 (mmHg) O2 Sat by Pulse 88 Oximetry 08/04/16 08/05/16 08/05/16 23:55 00:44 01:44 Temperature 97.2 F Pulse Rate 61 Respiratory 20 20 18 Rate Blood Pressure 115/62 (mmHg) O2 Sat by Pulse 84 Oximetry 08/05/16 08/05/16 08/05/16 02:55 03:00 03:55 Temperature 97.3 F Pulse Rate 113 Respiratory 18 22 24 Rate Blood Pressure 99/59 (mmHg) O2 Sat by Pulse 100 Oximetry 08/05/16 08/05/16 08/05/16 04:05 04:52 05:52 Temperature 96.1 F Pulse Rate 105 Respiratory 28 24 20 Rate Blood Pressure 206/105 (mmHg) O2 Sat by Pulse 86 Oximetry 08/05/16 08/05/16 08/05/16 07:55 08:09 10:00 Temperature 96.0 F Pulse Rate 116 Respiratory 16 14 Rate Blood Pressure 109/52 (mmHg) O2 Sat by Pulse 92 92 Oximetry 08/05/16 08/05/16 14:41 15:34 Temperature Pulse Rate 101 100 Respiratory 15 18 Rate Blood Pressure 117/41 88/59 (mmHg) O2 Sat by Pulse Oximetry Oxygen Devices in Use Now: Nasal Cannula Appearance: elderly, sedated, NAD Eyes: No Scleral Icterus, PERRLA Ears/Nose/Mouth/Throat: Mucous Membranes Moist Neck: NL Appearance and Movements; NL JVP, Trachea Midline Respiratory: Symmetrical Chest Expansion and Respiratory Effort, - - rhonchi b/l Cardiovascular: RRR Abdominal: NL Sounds; No Tenderness; No Distention, No Hepatosplenomegaly Lymphatic: No Cervical Adenopathy Extremities: No Edema Neurological: - - AOx0 Result Diagrams: 08/04/16 05:50 08/04/16 05:50 Additional Lab and Data: . Microbiology and Other Data: Microbiology 08/02/16 22:45 Nasal Screen MRSA (PCR)([facility]) - Final Nasal Mrsa Negative Assess/Plan/Problems-Billing . Assessment: 85 yo man with upper GI bleed found with duodenal ulcer in setting of significant ETOH and NSAID use. - Patient Problems (1) Alcohol withdrawal delirium Comment: - On [facility] protocol -> decrease ativan dosing per [facility] 08/05 (2) Anemia due to acute blood loss Comment: s/p 4 units prbc following h/h EGD results noted; appreciate GI consult. protonix IV (3) COPD (chronic obstructive pulmonary disease) Comment: stable CPAP for sleep spiriva albuterol PRN check CXR (4) Upper GI bleed Comment: - IV PPI - combination of NSAIDS and etoh use. (5) DVT prophylaxis Comment: SCDs
[2016-08-05] MEDS ORDERED: Pantoprazole IV* 40 MG IV SCH (17:00)
--- NOTE | 2016-08-05 17:06 | RAD ---
HISTORY: New hypoxia COMPARISONS: August 03, 2016 VIEWS:1: Single frontal portable view of the chest at 4:54 PM FINDINGS: LINES AND TUBES: None. CARDIOMEDIASTINAL SILHOUETTE: The cardiomediastinal silhouette is normal for portable technique. PLEURA: The costophrenic angles are sharp. No pleural abnormalities are noted. LUNG PARENCHYMA: There is hyperinflation. ABDOMEN: The upper abdomen is clear. There is no subphrenic gas. BONES AND SOFT TISSUES: There is evidence of remote trauma to the left clavicle IMPRESSION: HYPERINFLATION CONSISTENT WITH COPD. NO ACTIVE CARDIOPULMONARY DISEASE
[2016-08-05] MEDS: Acetaminophen TAB* 325 MG PO PRN (17:44)
[2016-08-05] MEDS ORDERED: LORazepam INJ* 2 MG/ML 1 ML VIAL ONE (21:51)
[2016-08-05] MEDS ORDERED: LORazepam INJ* 2 MG/ML 1 ML VIAL IV PUSH PRN (22:15)
[2016-08-05 22:36] LABS: Hematocrit 14 % (42-52); Mean Corpuscular HGB Conc 33 g/dl (31-36); Mean Corpuscular Hemoglobin 31 pg (27-31); Mean Corpuscular Volume 94 fL (80-94); Mean Platelet Volume 7 um3 (7.4-10.4); Red Blood Count 1.48 10^6/ul (4.0-5.4); Red Cell Distribution Width 16 % (10.5-15); White Blood Count 5.6 10^3/ul (3.5-10.8)
[2016-08-05 22:37] LABS: Comments Flag Yes
[2016-08-05 22:39] LABS: Add Diff/Slide Review? Slide Review Added; Hemoglobin 4.6 g/dl (14.0-18.0)
[2016-08-05 22:46] LABS: BUN/Creatinine Ratio 40.4 (8-20); Calcium 7.5 mg/dL (8.6-10.3); EGFR Non-African American 71.5 (>60); Potassium 3.6 mmol/L (3.5-5.0)
[2016-08-05 22:58] LABS: Hypochromasia 2+; Polychromasia 1+; Toxic Granulation 1+
[2016-08-05] MEDS ORDERED: LORazepam INJ* 2 MG/ML 1 ML VIAL IV PUSH ONE (23:00)
[2016-08-05 23:38] LABS: Hematocrit 14 % (42-52); Mean Corpuscular HGB Conc 33 g/dl (31-36); Mean Corpuscular Hemoglobin 31 pg (27-31); Mean Corpuscular Volume 94 fL (80-94); Mean Platelet Volume 7 um3 (7.4-10.4); Red Blood Count 1.49 10^6/ul (4.0-5.4); Red Cell Distribution Width 16 % (10.5-15); White Blood Count 6.7 10^3/ul (3.5-10.8)
[2016-08-05 23:39] LABS: Comments Flag Yes
[2016-08-05 23:40] LABS: Hemoglobin 4.7 g/dl (14.0-18.0)
[2016-08-06] MEDS ORDERED: Pantoprazole IV* 40 MG IV ONE (00:21)
--- NOTE | 2016-08-06 00:55 | PN ---
Progress Note - Progress Note Note: Notified by nursing of a critical HGB of 4.7, down from 8.9 yesterday in an 85M admitted for upper GI hemorrhage 2nd NSAIDs and alcoholism who is currently experiencing severe alcoholic withdrawal. Upon my evaluation, he was clinically stable, disoriented and mildly agitated, unable to give current status information. His BP was 140/90 without tachycardia, RR low 20s. saO2 was 100% at the forehead, 88% on finger. HEENT: palpebral fissures pale. Lungs: CTAB. CV : RRR. Abdomen: SNTND. Extremities: warm & dry. He had had incontinence of bowel which did not smell of melena. HGB was rechecked and confirmed accurate. Will transfer to ICU, make NPO, 3units pRBCs w/ 20mg furosemide after each. Give additional 40mg IV pantoprazole & restart GTT. Case discussed with Pete Hardin MD GI who agrees with the aforementioned plan. Anticipate repeat EGD in AM.
[2016-08-06] MEDS: LORazepam INJ* 2 MG/ML 1 ML VIAL IV SCH ×10 (02:05→22:21)
[2016-08-06] MEDS: Pantoprazole IV* 80 MG in NS 0.9% 250 ML* 250 ML IVPB SCH ×3 (02:55→22:04)
[2016-08-06] MEDS: Furosemide IV* 10 MG/ML 10 ML VIAL (100 MG) IV PRN ×3 (05:25→13:27)
[2016-08-06] MEDS: Mometasone/Formoter 200/5 MDI INH SCH (09:17)
[2016-08-06] MEDS: Tiotropium CAP.INH* CAP.INH/18 MCG INH SCH (09:17)
[2016-08-06] MEDS: Folic Acid TAB* 1 MG PO SCH (09:42)
[2016-08-06] MEDS: Multivitamins/Minerals TAB PO SCH (09:42)
[2016-08-06] MEDS: Thiamine TAB* 100 MG TAB PO SCH (09:43)
--- NOTE | 2016-08-06 10:17 | PN ---
Subjective Date of Service: 08/06/16 Interval History: Pt seen and examined with at bedside Events from yesterday reviewed Significant drop in H/H - drop in BP. Transferred to ICU. Now receiving 3rd unit of blood with improvement in SBP and HR Still receiving significant ativan on WAM but mental status slightly improved since yesterday - can recognize and name his Family History: Unchanged from Admission Social History: Unchanged from Admission Past Medical History: Unchanged from Admission Objective Active Medications: Acetaminophen (Tylenol Tab*) 650 mg PO Q6H PRN PRN Reason: FEVER/PAIN Last Admin: 08/05/16 17:44 Dose: 650 mg Albuterol (Ventolin 2.5 Mg/3 Ml Neb.Anyi*) 2.5 mg INH Q2H PRN PRN Reason: SOB/WHEEZING Folic Acid (Folvite Tab*) 1 mg PO DAILY [facility] Last Admin: 08/06/16 09:42 Dose: Not Given Furosemide (Lasix Iv*) 20 mg IV .SEE COMMENTS PRN PRN Reason: AFTER Completion of pRBC. Stop: 08/08/16 00:03 Last Admin: 08/06/16 09:30 Dose: 20 mg Pantoprazole Sodium 80 mg/ (Sodium Chloride) 250 mls @ 25 mls/hr IVPB Q10H [facility] Last Admin: 08/06/16 02:55 Dose: 25 mls/hr Lorazepam (Ativan Inj*) 0 mg IV .PER WAM SCORE [facility] PRN Reason: Protocol Last Admin: 08/06/16 08:14 Dose: 1 mg Mometasone Furoate/Formoterol Fumar (Dulera 200/5 Mdi*) 2 puff INH BID [facility] Last Admin: 08/06/16 09:17 Dose: Not Given Multivitamins/Minerals (Theragran/Minerals Tab*) 1 tab PO DAILY [facility] Last Admin: 08/06/16 09:42 Dose: Not Given Ondansetron HCl (Zofran Inj*) 4 mg IV Q6H PRN PRN Reason: NAUSEA Prochlorperazine Edisylate (Compazine Inj*) 10 mg IV Q6H PRN PRN Reason: NAUSEA Thiamine HCl (Vitamin B-1 Tab*) 100 mg PO DAILY [facility] Last Admin: 08/06/16 09:43 Dose: Not Given Tiotropium [place] (Spiriva Cap.Inh*) 1 cap INH DAILY [facility] Last Admin: 08/06/16 09:17 Dose: Not Given Vital Signs 08/05/16 08/05/16 08/05/16 14:41 15:34 17:35 Temperature Pulse Rate 101 100 95 Respiratory 15 18 18 Rate Blood Pressure 117/41 88/59 106/61 (mmHg) O2 Sat by Pulse Oximetry 08/05/16 08/05/16 08/05/16 20:15 20:21 20:40 Temperature 97.6 F Pulse Rate 93 Respiratory 22 22 Rate Blood Pressure 116/58 (mmHg) O2 Sat by Pulse 90 Oximetry 08/05/16 08/05/16 08/05/16 21:40 21:44 21:45 Temperature Pulse Rate 95 Respiratory 20 20 Rate Blood Pressure (mmHg) O2 Sat by Pulse 84 84 Oximetry 08/05/16 08/05/16 08/06/16 21:59 22:59 00:00 Temperature 98.4 F Pulse Rate 68 Respiratory 22 18 18 Rate Blood Pressure 145/94 (mmHg) O2 Sat by Pulse 100 Oximetry 08/06/16 08/06/16 08/06/16 01:13 01:23 01:30 Temperature 98.6 F Pulse Rate 100 81 102 Respiratory 16 16 20 Rate Blood Pressure 123/106 119/67 119/67 (mmHg) O2 Sat by Pulse 82 98 100 Oximetry 08/06/16 08/06/16 08/06/16 01:46 01:53 02:00 Temperature Pulse Rate 94 121 Respiratory 21 22 23 Rate Blood Pressure 138/95 (mmHg) O2 Sat by Pulse 100 100 Oximetry 08/06/16 08/06/16 08/06/16 02:01 02:05 02:15 Temperature Pulse Rate 115 103 Respiratory 21 24 17 Rate Blood Pressure 145/60 166/109 (mmHg) O2 Sat by Pulse 100 98 Oximetry 08/06/16 08/06/16 08/06/16 02:45 03:00 03:15 Temperature 97.0 F 97.9 F 97.9 F Pulse Rate 101 104 104 Respiratory 14 22 15 Rate Blood Pressure 121/64 143/89 (mmHg) O2 Sat by Pulse 100 100 100 Oximetry 08/06/16 08/06/16 08/06/16 03:30 04:00 04:20 Temperature 97.9 F 97.9 F Pulse Rate 102 103 Respiratory 19 19 28 Rate Blood Pressure 120/61 131/111 (mmHg) O2 Sat by Pulse 99 99 Oximetry 08/06/16 08/06/16 08/06/16 04:30 05:00 05:24 Temperature 97.8 F 97.8 F 97.8 F Pulse Rate 103 107 103 Respiratory 16 20 18 Rate Blood Pressure 126/101 95/68 124/71 (mmHg) O2 Sat by Pulse 94 99 100 Oximetry 08/06/16 08/06/16 08/06/16 06:00 06:11 06:34 Temperature 97.7 F 97.8 F Pulse Rate 101 102 Respiratory 18 22 18 Rate Blood Pressure 132/62 (mmHg) O2 Sat by Pulse 100 97 Oximetry 08/06/16 08/06/16 08/06/16 07:00 07:30 07:33 Temperature 97.8 F 97.9 F 97.9 F Pulse Rate 103 101 104 Respiratory 20 21 19 Rate Blood Pressure 116/60 86/68 80/35 (mmHg) O2 Sat by Pulse 100 100 100 Oximetry 08/06/16 08/06/16 08:14 09:18 Temperature Pulse Rate 95 Respiratory 20 17 Rate Blood Pressure (mmHg) O2 Sat by Pulse 100 Oximetry Oxygen Devices in Use Now: Nasal Cannula Appearance: elderly, NAD Eyes: No Scleral Icterus, PERRLA Ears/Nose/Mouth/Throat: - - dry MM, OP clear Neck: NL Appearance and Movements; NL JVP, Trachea Midline Respiratory: Symmetrical Chest Expansion and Respiratory Effort, Clear to Auscultation Cardiovascular: - - tachy, no mrg Abdominal: NL Sounds; No Tenderness; No Distention, No Hepatosplenomegaly Lymphatic: No Cervical Adenopathy Extremities: No Edema Neurological: - - AOx1 to self Result Diagrams: 08/05/16 23:00 08/05/16 22:24 Additional Lab and Data: . Microbiology and Other Data: Microbiology 08/02/16 22:45 Nasal Screen MRSA (PCR)([facility]) - Final Nasal Mrsa Negative Assess/Plan/Problems-Billing . Assessment: 85 yo man with upper GI bleed found with duodenal ulcer in setting of significant ETOH and NSAID use now with rebleed - Patient Problems (1) Anemia due to acute blood loss Comment: s/p 7 units prbc continue to trend H/H Maintain 2 PIV protonix IV gtt restarted in setting of recurrent bleed reconsult GI although unclear benefit of rescoping if bleeding abates (2) Alcohol withdrawal delirium Comment: On protocol -> decreased ativan dosing per [facility] 08/05 (3) COPD (chronic obstructive pulmonary disease) Comment: stable CPAP for sleep spiriva albuterol PRN (4) Upper GI bleed Comment: - IV PPI gtt - combination of NSAIDS and etoh use. (5) DVT prophylaxis Comment: SCDs
[2016-08-06 14:12] LABS: Hematocrit 25 % (42-52); Hemoglobin 8.5 g/dl (14.0-18.0); Mean Corpuscular HGB Conc 34 g/dl (31-36); Mean Corpuscular Hemoglobin 31 pg (27-31); Mean Corpuscular Volume 90 fL (80-94); Mean Platelet Volume 7 um3 (7.4-10.4); Red Cell Distribution Width 15 % (10.5-15); White Blood Count 9.7 10^3/ul (3.5-10.8)
[2016-08-06 14:44] LABS: BUN/Creatinine Ratio 40.7 (8-20); Calcium 7.9 mg/dL (8.6-10.3); EGFR African American 83.2 (>60); EGFR Non-African American 64.7 (>60); Potassium 3.9 mmol/L (3.5-5.0)
[2016-08-06 17:55] LABS: Hematocrit 24 % (42-52); Hemoglobin 7.9 g/dl (14.0-18.0)
[2016-08-06 21:17] LABS: Hematocrit 24 % (42-52); Hemoglobin 7.9 g/dl (14.0-18.0)
[2016-08-07] MEDS: Mometasone/Formoter 200/5 MDI INH SCH ×3 (00:21→19:42)
[2016-08-07] MEDS: LORazepam INJ* 2 MG/ML 1 ML VIAL IV SCH ×7 (00:25→20:52)
[2016-08-07 03:37] LABS: Hematocrit 21 % (42-52)
[2016-08-07 03:52] LABS: BUN/Creatinine Ratio 36.4 (8-20); Calcium 7.9 mg/dL (8.6-10.3); EGFR Non-African American 56.7 (>60); Potassium 3.5 mmol/L (3.5-5.0)
[2016-08-07] MEDS ORDERED: LORazepam INJ* 2 MG/ML 1 ML VIAL IV PUSH ONE (08:31)
[2016-08-07] MEDS: Tiotropium CAP.INH* CAP.INH/18 MCG INH SCH (09:15)
[2016-08-07] MEDS: Pantoprazole IV* 80 MG in NS 0.9% 250 ML* 250 ML IVPB SCH ×2 (09:20→20:38)
[2016-08-07 09:56] LABS: Hematocrit 18 % (42-52)
[2016-08-07 10:10] LABS: Comments Flag Yes
[2016-08-07] MEDS: Multivitamins/Minerals TAB PO SCH (11:25)
[2016-08-07] MEDS: Thiamine TAB* 100 MG TAB PO SCH (11:26)
[2016-08-07] MEDS: Folic Acid TAB* 1 MG PO SCH (11:26)
--- NOTE | 2016-08-07 14:50 | PN ---
Subjective Date of Service: 08/07/16 Interval History: Seen with sister at bedside No BM in last 2 days. Still requiring ativan. Received extra sedation for placement of PICC as he was combative. He is not offering cogent complaints Family History: Unchanged from Admission Social History: Unchanged from Admission Past Medical History: Unchanged from Admission Objective Active Medications: Acetaminophen (Tylenol Tab*) 650 mg PO Q6H PRN PRN Reason: FEVER/PAIN Last Admin: 08/05/16 17:44 Dose: 650 mg Albuterol (Ventolin 2.5 Mg/3 Ml Neb.Anyi*) 2.5 mg INH Q2H PRN PRN Reason: SOB/WHEEZING Folic Acid (Folvite Tab*) 1 mg PO DAILY [facility] Last Admin: 08/07/16 11:26 Dose: 1 mg Pantoprazole Sodium 80 mg/ (Sodium Chloride) 250 mls @ 25 mls/hr IVPB Q10H [facility] Last Admin: 08/07/16 09:20 Dose: 25 mls/hr Lorazepam (Ativan Inj*) 0 mg IV .PER WAM SCORE [facility] PRN Reason: Protocol Last Admin: 08/07/16 06:51 Dose: 2 mg Mometasone Furoate/Formoterol Fumar (Dulera 200/5 Mdi*) 2 puff INH BID [facility] Last Admin: 08/07/16 00:21 Dose: Not Given Multivitamins/Minerals (Theragran/Minerals Tab*) 1 tab PO DAILY [facility] Last Admin: 08/07/16 11:25 Dose: 1 tab Ondansetron HCl (Zofran Inj*) 4 mg IV Q6H PRN PRN Reason: NAUSEA Prochlorperazine Edisylate (Compazine Inj*) 10 mg IV Q6H PRN PRN Reason: NAUSEA Thiamine HCl (Vitamin B-1 Tab*) 100 mg PO DAILY [facility] Last Admin: 08/07/16 11:26 Dose: 100 mg Tiotropium [place] (Spiriva Cap.Inh*) 1 cap INH DAILY [facility] Last Admin: 08/06/16 09:17 Dose: Not Given Vital Signs 08/06/16 08/06/16 08/06/16 15:00 15:30 16:00 Temperature 99.0 F 99.1 F 99.1 F Pulse Rate 102 105 104 Respiratory 18 19 20 Rate Blood Pressure 115/72 105/81 114/60 (mmHg) O2 Sat by Pulse 100 99 100 Oximetry 08/06/16 08/06/16 08/06/16 16:09 16:19 16:21 Temperature 99.0 F Pulse Rate 116 Respiratory 20 16 Rate Blood Pressure 135/72 (mmHg) O2 Sat by Pulse 86 100 Oximetry 08/06/16 08/06/16 08/06/16 16:30 17:00 17:30 Temperature 99.1 F 99.4 F 99.6 F Pulse Rate 100 97 95 Respiratory 20 23 18 Rate Blood Pressure 117/60 114/50 103/57 (mmHg) O2 Sat by Pulse 100 99 97 Oximetry 08/06/16 08/06/16 08/06/16 18:00 18:25 18:31 Temperature 99.4 F 99.0 F Pulse Rate 59 Respiratory 18 13 17 Rate Blood Pressure 149/126 134/74 (mmHg) O2 Sat by Pulse 75 Oximetry 08/06/16 08/06/16 08/06/16 19:00 19:05 19:30 Temperature 99.0 F 98.9 F 99.1 F Pulse Rate 109 115 101 Respiratory 14 23 19 Rate Blood Pressure 83/41 99/76 106/78 (mmHg) O2 Sat by Pulse 99 94 97 Oximetry 08/06/16 08/06/16 08/06/16 19:43 20:00 20:19 Temperature 99.1 F 99.0 F Pulse Rate 104 Respiratory 19 28 Rate Blood Pressure 124/59 (mmHg) O2 Sat by Pulse 99 Oximetry 08/06/16 08/06/16 08/06/16 21:00 21:04 22:00 Temperature 99.1 F 99.0 F Pulse Rate 101 60 Respiratory 19 16 Rate Blood Pressure 141/81 (mmHg) O2 Sat by Pulse 96 90 Oximetry 08/06/16 08/06/16 08/06/16 22:21 23:00 23:20 Temperature 97.7 F 99.2 F Pulse Rate 114 117 Respiratory 18 20 19 Rate Blood Pressure (mmHg) O2 Sat by Pulse 100 100 Oximetry 08/06/16 08/07/16 08/07/16 23:40 00:00 00:15 Temperature 99.2 F 98.4 F Pulse Rate 112 Respiratory 20 Rate Blood Pressure 108/70 (mmHg) O2 Sat by Pulse 100 Oximetry 08/07/16 08/07/16 08/07/16 00:25 00:55 01:00 Temperature 99.0 F Pulse Rate 108 117 Respiratory 21 19 17 Rate Blood Pressure 127/105 (mmHg) O2 Sat by Pulse 99 99 Oximetry 08/07/16 08/07/16 08/07/16 01:03 02:00 02:21 Temperature 98.7 F 92.3 F 99.2 F Pulse Rate 118 110 112 Respiratory 21 18 20 Rate Blood Pressure 116/93 130/104 121/88 (mmHg) O2 Sat by Pulse 99 97 97 Oximetry 08/07/16 08/07/16 08/07/16 02:30 03:00 03:28 Temperature 99.2 F Pulse Rate Respiratory 20 20 Rate Blood Pressure 134/73 (mmHg) O2 Sat by Pulse Oximetry 08/07/16 08/07/16 08/07/16 04:00 04:50 05:00 Temperature 98.5 F 98.9 F Pulse Rate 115 114 Respiratory 19 22 18 Rate Blood Pressure 149/91 113/51 (mmHg) O2 Sat by Pulse 100 100 Oximetry 08/07/16 08/07/16 08/07/16 06:00 06:01 06:51 Temperature 98.6 F 99.1 F Pulse Rate 116 116 Respiratory 23 21 25 Rate Blood Pressure 112/72 (mmHg) O2 Sat by Pulse 100 100 Oximetry 08/07/16 08/07/16 08/07/16 07:00 08:00 08:35 Temperature 98.9 F 99.0 F Pulse Rate 110 107 Respiratory 23 23 16 Rate Blood Pressure 110/30 103/66 (mmHg) O2 Sat by Pulse 100 100 Oximetry 08/07/16 08/07/16 08/07/16 08:50 09:00 09:48 Temperature 99.0 F 99.0 F Pulse Rate 103 101 Respiratory 21 20 Rate Blood Pressure 107/64 (mmHg) O2 Sat by Pulse 100 100 99 Oximetry 08/07/16 10:00 Temperature 99.0 F Pulse Rate 100 Respiratory 19 Rate Blood Pressure 105/47 (mmHg) O2 Sat by Pulse 100 Oximetry Oxygen Devices in Use Now: Nasal Cannula Appearance: elderly, ill appearing, somnulent Eyes: No Scleral Icterus, PERRLA Ears/Nose/Mouth/Throat: - - dry MM, OP clear Neck: NL Appearance and Movements; NL JVP, Trachea Midline Respiratory: Symmetrical Chest Expansion and Respiratory Effort, Clear to Auscultation Cardiovascular: RRR Abdominal: NL Sounds; No Tenderness; No Distention, No Hepatosplenomegaly Lymphatic: No Cervical Adenopathy Extremities: No Edema Skin: No Rash or Ulcers Neurological: - - AOx0 Result Diagrams: 08/07/16 09:25 08/07/16 03:26 Additional Lab and Data: . Microbiology and Other Data: Microbiology 08/02/16 22:45 Nasal Screen MRSA (PCR)(ELGIN) - Final Nasal Mrsa Negative Assess/Plan/Problems-Billing . Assessment: 85 yo man with p/w melena suspected in setting of upper GI bleed found with duodenal ulcer in setting of significant ETOH and NSAID use withs gricelda c/b recurrent anemia thought 2/2 blood loss however no e/o continued bleeding as of yet - Patient Problems (1) Anemia due to acute blood loss Comment: s/p 7 units prbc continue to trend H/H PICC [facility] 08/07 protonix IV gtt restarted in setting of suspect recurrent bleed LDH wnl, haptoglobin pending check CT A/P to r/o RP bleed reconsult GI although unclear benefit of rescoping if bleeding abates (2) Alcohol withdrawal delirium Comment: On [facility] protocol -> decreased ativan dosing per [facility] 08/05 (3) COPD (chronic obstructive pulmonary disease) Comment: stable CPAP for sleep spiriva albuterol PRN (4) Upper GI bleed Comment: - IV PPI gtt - combination of NSAIDS and etoh use. unclear if recurrent anemia is 2/2 recurrent bleed appreciate GI assistance (5) DVT prophylaxis Comment: SCDs
--- NOTE | 2016-08-07 15:40 | RAD ---
Indication: Retroperitoneal hematoma. CT of the abdomen and pelvis was performed without oral or IV contrast administration. Coronal and sagittal reconstructed images were obtained. Lung bases demonstrate atelectasis bilaterally. There may BE early infiltrate in the right lung base. There is a small to moderate left pleural effusion is noted. The heart is of normal size without evidence of pericardial effusion. The liver is normal in size. No focal lesions or intrahepatic duct dilatation is noted. The gallbladder demonstrates no calcified gallstones. No pericholecystic fluid or wall thickening is identified. The pancreas indicates no mass or pancreatic ductal dilatation. The spleen is normal in size. No adrenal lesions are noted. The kidneys demonstrate no hydronephrosis. The psoas margins are intact. No definite retroperitoneal hematoma is identified. Atherosclerotic aorta is noted without aneurysmal dilatation. Common iliac artery and left external iliac artery is unremarkable. Degenerative changes of the lumbar spine are noted. CT of the pelvis demonstrates no pelvic adenopathy or hematoma. Prostate is enlarged. The urinary bladder demonstrates diffuse wall thickening of uncertain etiology. No small bowel dilatation is noted. Multiple surgical clips from prior hernia repair. IMPRESSION: NO DEFINITE RETROPERITONEAL HEMATOMA IS IDENTIFIED. ATHEROSCLEROTIC AORTA IS NOTED. LEFT LOWER LOBE ATELECTASIS WITH LEFT PLEURAL EFFUSION IS NOTED. EARLY PNEUMONIA IN THE RIGHT LUNG BASE. DIFFUSE WALL THICKENING OF THE URINARY BLADDER IS UNCERTAIN ETIOLOGY.
[2016-08-07 16:29] LABS: Hematocrit 22 % (42-52); Hemoglobin 7.3 g/dl (14.0-18.0)
[2016-08-07] MEDS ORDERED: Succinylcholine* 20 MG/ML 10 ML VIAL ONE (18:26)
[2016-08-07 22:31] LABS: Hematocrit 23 % (42-52); Hemoglobin 7.6 g/dl (14.0-18.0)
[2016-08-08] MEDS: LORazepam INJ* 2 MG/ML 1 ML VIAL IV SCH ×3 (01:21→21:21)
[2016-08-08] MEDS ORDERED: LORazepam PREMIX BAG 1MG/ML* 100 MG/100 ML BAG IVPB SCH (02:00)
[2016-08-08] MEDS ORDERED: LORazepam VIAL (for drip)* 100 MG in D5W 50 ML BAG* 50 ML IVPB SCH (02:30)
[2016-08-08 06:03] LABS: Hematocrit 22 % (42-52); Hemoglobin 7.1 g/dl (14.0-18.0); Mean Corpuscular HGB Conc 33 g/dl (31-36); Mean Corpuscular Hemoglobin 30 pg (27-31); Mean Corpuscular Volume 92 fL (80-94); Mean Platelet Volume 7 um3 (7.4-10.4); Red Blood Count 2.33 10^6/ul (4.0-5.4); Red Cell Distribution Width 15 % (10.5-15); White Blood Count 8.7 10^3/ul (3.5-10.8)
[2016-08-08 06:04] LABS: Add Diff/Slide Review? Slide Review Added; Comments Flag Yes
[2016-08-08 06:24] LABS: BUN/Creatinine Ratio 34.1 (8-20); Calcium 8.1 mg/dL (8.6-10.3); EGFR African American 67.8 (>60); EGFR Non-African American 52.7 (>60); Potassium 3.7 mmol/L (3.5-5.0)
[2016-08-08 06:44] LABS: Immature Granulocytes 10 % (0-9); Neutrophil % 78 % (38-83)
[2016-08-08 06:45] LABS: Hypochromasia 1+; Polychromasia 1+
[2016-08-08] MEDS: Pantoprazole IV* 80 MG in NS 0.9% 250 ML* 250 ML IVPB SCH ×2 (07:19→17:00)
[2016-08-08] MEDS: Mometasone/Formoter 200/5 MDI INH SCH ×2 (08:13→20:14)
[2016-08-08] MEDS: Tiotropium CAP.INH* CAP.INH/18 MCG INH SCH (08:13)
--- NOTE | 2016-08-08 09:31 | RAD ---
Indication: Evaluate for HCAP. Single frontal view of the chest performed at 0855 hours was reviewed. Comparison is made with previous exam dated August 05, 2016. No mediastinal shift is noted. Heart is of normal size and configuration. Lung santos appear clear. Additionally left-sided PICC line is in place with the tip in the superior vena cava. IMPRESSION: NO ACTIVE CARDIOPULMONARY DISEASE IS NOTED.
[2016-08-08] MEDS: Multivitamins/Minerals TAB PO SCH (11:14)
[2016-08-08] MEDS: Thiamine TAB* 100 MG TAB PO SCH (11:14)
[2016-08-08] MEDS: Folic Acid TAB* 1 MG PO SCH (11:14)
[2016-08-08 15:35] LABS: Hematocrit 24 % (42-52); Hemoglobin 7.9 g/dl (14.0-18.0)
[2016-08-08 15:50] LABS: Comments Flag Yes
--- NOTE | 2016-08-08 17:04 | PN ---
Subjective Date of Service: 08/08/16 Interval History: Events reviewed Agitated overnight and started on ativan gtt No BMs, no evidence of blood from below or above. No emesis. Significantly sedated this AM +cough Family History: Unchanged from Admission Social History: Unchanged from Admission Past Medical History: Unchanged from Admission Objective Active Medications: Acetaminophen (Tylenol Tab*) 650 mg PO Q6H PRN PRN Reason: FEVER/PAIN Last Admin: 08/05/16 17:44 Dose: 650 mg Albuterol (Ventolin 2.5 Mg/3 Ml Neb.Nayi*) 2.5 mg INH Q2H PRN PRN Reason: SOB/WHEEZING Folic Acid (Folvite Tab*) 1 mg PO DAILY [facility] Last Admin: 08/08/16 11:14 Dose: Not Given Heparin Sodium (Porcine) (Heparin Flush Picc/Ml/Cvc(*)) 0 ml FLUSH 0600,1800 [facility] Last Admin: 08/08/16 06:17 Dose: Not Given Pantoprazole Sodium 80 mg/ (Sodium Chloride) 250 mls @ 25 mls/hr IVPB Q10H [facility] Last Admin: 08/08/16 07:19 Dose: 25 mls/hr Dextrose/Sodium Chloride (D5w 1/2 Ns 1000 Ml Bag*) 1,000 mls @ 100 mls/hr IV PER RATE [facility] Stop: 08/10/16 02:59 Lorazepam (Ativan Inj*) 0 mg IV .PER WAM SCORE [facility] PRN Reason: Protocol Last Admin: 08/08/16 01:21 Dose: 3 mg Mometasone Furoate/Formoterol Fumar (Dulera 200/5 Mdi*) 2 puff INH BID [facility] Last Admin: 08/08/16 08:13 Dose: Not Given Multivitamins/Minerals (Theragran/Minerals Tab*) 1 tab PO DAILY [facility] Last Admin: 08/08/16 11:14 Dose: Not Given Ondansetron HCl (Zofran Inj*) 4 mg IV Q6H PRN PRN Reason: NAUSEA Prochlorperazine Edisylate (Compazine Inj*) 10 mg IV Q6H PRN PRN Reason: NAUSEA Thiamine HCl (Vitamin B-1 Tab*) 100 mg PO DAILY [facility] Last Admin: 08/08/16 11:14 Dose: Not Given Tiotropium [place] (Spiriva Cap.Inh*) 1 cap INH DAILY [facility] Last Admin: 08/08/16 08:13 Dose: Not Given Vital Signs 08/07/16 08/07/16 08/07/16 18:00 18:01 19:00 Temperature 98.0 F 98.2 F 98.9 F Pulse Rate 111 111 108 Respiratory 22 22 22 Rate Blood Pressure 119/83 134/117 (mmHg) O2 Sat by Pulse 97 96 97 Oximetry 08/07/16 08/07/16 08/07/16 19:36 20:00 20:52 Temperature 99.2 F 99.4 F Pulse Rate 120 Respiratory 22 22 Rate Blood Pressure 142/75 (mmHg) O2 Sat by Pulse 96 Oximetry 08/07/16 08/07/16 08/07/16 21:00 21:21 21:46 Temperature 99.7 F 99.9 F Pulse Rate 122 113 117 Respiratory 23 21 Rate Blood Pressure 133/87 (mmHg) O2 Sat by Pulse 96 96 100 Oximetry 08/07/16 08/07/16 08/07/16 22:00 22:01 22:02 Temperature 99.6 F 98.8 F 98.3 F Pulse Rate 120 121 122 Respiratory 21 23 23 Rate Blood Pressure 106/82 143/46 (mmHg) O2 Sat by Pulse 98 99 99 Oximetry 08/07/16 08/07/16 08/08/16 23:00 23:29 00:00 Temperature 99.1 F 99.6 F 99.2 F Pulse Rate 118 114 Respiratory 22 21 Rate Blood Pressure 144/31 (mmHg) O2 Sat by Pulse 99 98 Oximetry 08/08/16 08/08/16 08/08/16 00:01 00:07 01:00 Temperature 99.6 F Pulse Rate 109 Respiratory 22 Rate Blood Pressure 145/56 159/65 (mmHg) O2 Sat by Pulse 99 100 Oximetry 08/08/16 08/08/16 08/08/16 01:21 02:00 02:52 Temperature 98.9 F Pulse Rate 109 Respiratory 21 21 19 Rate Blood Pressure 159/113 (mmHg) O2 Sat by Pulse 99 Oximetry 08/08/16 08/08/16 08/08/16 03:00 03:01 03:32 Temperature 98.2 F 97.1 F 98.1 F Pulse Rate 110 110 Respiratory 21 18 Rate Blood Pressure (mmHg) O2 Sat by Pulse 99 100 Oximetry 08/08/16 08/08/16 08/08/16 03:46 03:51 04:00 Temperature 97.9 F 97.8 F 98.3 F Pulse Rate 109 110 117 Respiratory 22 23 17 Rate Blood Pressure 124/14 108/51 105/85 (mmHg) O2 Sat by Pulse 100 98 98 Oximetry 08/08/16 08/08/16 08/08/16 05:00 05:40 06:00 Temperature 99.0 F 98.1 F 98.9 F Pulse Rate 110 110 109 Respiratory 22 24 18 Rate Blood Pressure 99/20 96/84 99/85 (mmHg) O2 Sat by Pulse 99 98 98 Oximetry 08/08/16 08/08/16 08/08/16 07:00 07:01 07:13 Temperature 98.8 F 98.8 F Pulse Rate 111 112 Respiratory 25 25 25 Rate Blood Pressure 121/82 (mmHg) O2 Sat by Pulse 99 99 Oximetry 08/08/16 08/08/16 08/08/16 08:00 08:10 08:11 Temperature 98.3 F Pulse Rate 101 96 Respiratory 19 20 Rate Blood Pressure 102/76 (mmHg) O2 Sat by Pulse 100 100 100 Oximetry 08/08/16 08/08/16 08/08/16 09:00 10:00 11:00 Temperature 98.3 F 97.9 F 98.2 F Pulse Rate 103 99 101 Respiratory 23 21 23 Rate Blood Pressure 128/31 128/16 123/41 (mmHg) O2 Sat by Pulse 100 100 100 Oximetry 08/08/16 08/08/16 08/08/16 11:12 11:27 12:00 Temperature 98.4 F 98.3 F Pulse Rate 100 100 Respiratory 20 21 20 Rate Blood Pressure 137/49 124/33 (mmHg) O2 Sat by Pulse 100 100 Oximetry 08/08/16 08/08/16 08/08/16 13:00 13:40 13:44 Temperature 98.8 F 98.6 F 98.6 F Pulse Rate 99 100 Respiratory 23 18 Rate Blood Pressure 120/102 106/65 (mmHg) O2 Sat by Pulse 100 100 Oximetry 08/08/16 08/08/16 08/08/16 13:51 14:00 15:00 Temperature 99.1 F 99.1 F Pulse Rate 100 107 Respiratory 25 21 19 Rate Blood Pressure 118/42 126/27 (mmHg) O2 Sat by Pulse 100 100 Oximetry 08/08/16 08/08/16 08/08/16 15:31 15:55 16:00 Temperature 99.1 F Pulse Rate 105 Respiratory 24 22 22 Rate Blood Pressure 111/67 (mmHg) O2 Sat by Pulse 97 Oximetry Oxygen Devices in Use Now: Nasal Cannula Appearance: elderly, ill appearing, sedated on on ativan gtt, no distress Eyes: No Scleral Icterus, PERRLA Ears/Nose/Mouth/Throat: - - dry MM Neck: NL Appearance and Movements; NL JVP, Trachea Midline Respiratory: Symmetrical Chest Expansion and Respiratory Effort, - - rhonchi b/l Cardiovascular: - - tachy Abdominal: NL Sounds; No Tenderness; No Distention, No Hepatosplenomegaly Lymphatic: No Cervical Adenopathy Extremities: No Edema, No Clubbing, Cyanosis Skin: No Rash or Ulcers, - - full body skin exam, n olarge echymosis to explain anemia. Right hand and arm has significant bruising Neurological: - - AOx0, moving all extremities Result Diagrams: 08/08/16 15:30 08/08/16 05:25 Additional Lab and Data: . Microbiology and Other Data: Microbiology 08/02/16 22:45 Nasal Screen MRSA (PCR)(ELGIN) - Final Nasal Mrsa Negative Assess/Plan/Problems-Billing . Assessment: 85 yo man with p/w melena suspected in setting of upper GI bleed found with duodenal ulcer in setting of significant ETOH and NSAID use with stay c/b recurrent anemia thought 2/2 blood loss however no e/o continued bleeding as of yet - Patient Problems (1) Anemia due to acute blood loss Comment: s/p 8 units prbc this stay continue to trend H/H PICC line in place 08/07 protonix IV gtt restarted in setting of suspect recurrent bleed LDH wnl, haptoglobin pending CT A/P without RP bleed no obvious active bleeding 1 unit PRBC 08/08 in setting of continued tachycardia (2) Alcohol withdrawal delirium Comment: On [facility] protocol -> decreased ativan dosing per [facility] 08/05 stop ativan gtt which was started overnight 08/08 (3) COPD (chronic obstructive pulmonary disease) Comment: stable CPAP for sleep spiriva albuterol PRN (4) Upper GI bleed Comment: IV PPI gtt combination of NSAIDS and etoh use. unclear if recurrent anemia is 2/2 recurrent bleed appreciate GI assistance (5) DVT prophylaxis Comment: SCDs
[2016-08-08] MEDS: D5W 1/2 NS 1000 ML BAG* 1,000 ML IV SCH (17:22)
[2016-08-08 20:49] LABS: Hematocrit 25 % (42-52)
[2016-08-08 21:01] LABS: Comments Flag Yes
[2016-08-09] MEDS: LORazepam INJ* 2 MG/ML 1 ML VIAL IV SCH ×3 (01:15→17:22)
[2016-08-09] MEDS: D5W 1/2 NS 1000 ML BAG* 1,000 ML IV SCH (02:42)
[2016-08-09] MEDS: Pantoprazole IV* 80 MG in NS 0.9% 250 ML* 250 ML IVPB SCH ×2 (02:42→14:01)
[2016-08-09 05:18] LABS: Hematocrit 24 % (42-52); Hemoglobin 7.8 g/dl (14.0-18.0); Mean Corpuscular HGB Conc 33 g/dl (31-36); Mean Corpuscular Hemoglobin 30 pg (27-31); Mean Corpuscular Volume 92 fL (80-94); Mean Platelet Volume 7 um3 (7.4-10.4); Red Blood Count 2.61 10^6/ul (4.0-5.4); Red Cell Distribution Width 16 % (10.5-15); White Blood Count 7.6 10^3/ul (3.5-10.8)
[2016-08-09 05:29] LABS: BUN/Creatinine Ratio 27.2 (8-20); EGFR African American 78.1 (>60); EGFR Non-African American 60.8 (>60); Potassium 3.3 mmol/L (3.5-5.0)
[2016-08-09] MEDS: Mometasone/Formoter 200/5 MDI INH SCH ×2 (08:01→20:02)
[2016-08-09] MEDS: Tiotropium CAP.INH* CAP.INH/18 MCG INH SCH (08:01)
[2016-08-09] MEDS ORDERED: Alteplase (CATHFLO)* 2 MG VIAL IV ONE (08:43)
[2016-08-09] MEDS ORDERED: D5W 20 MEQ KCL 1000 ML BAG* 1,000 ML IV SCH (09:00)
[2016-08-09] MEDS ORDERED: Alteplase (CATHFLO)* 2 MG VIAL ONE (11:00)
[2016-08-09] MEDS: Multivitamins/Minerals TAB PO SCH (11:03)
[2016-08-09] MEDS: Thiamine TAB* 100 MG TAB PO SCH (11:03)
[2016-08-09] MEDS: Docusate CAP* 100 MG PO SCH (11:07)
[2016-08-09] MEDS: Polyethylene Glycol 3350* 17 GM PACKET PO PRN (11:07)
[2016-08-09] MEDS: Folic Acid TAB* 1 MG PO SCH (11:50)
[2016-08-09] MEDS: Ferrous Sulfate TAB* 325 MG PO SCH ×2 (11:50→21:39)
[2016-08-09] MEDS: cefTRIAXone VIAL(*) 1,000 MG in NS 0.9% 50 ML* 50 ML IVPB SCH (12:59)
--- NOTE | 2016-08-09 16:10 | PN ---
Subjective Date of Service: 08/09/16 Interval History: Still sedated but a little more awake today. Mumbling to himself. Unable to relay any information. Family History: Unchanged from Admission Social History: Unchanged from Admission Past Medical History: Unchanged from Admission Objective Active Medications: Acetaminophen (Tylenol Tab*) 650 mg PO Q6H PRN PRN Reason: FEVER/PAIN Last Admin: 08/05/16 17:44 Dose: 650 mg Albuterol (Ventolin 2.5 Mg/3 Ml Neb.Anyi*) 2.5 mg INH Q2H PRN PRN Reason: SOB/WHEEZING Docusate Sodium (Colace Cap*) 200 mg PO DAILY [facility] Last Admin: 08/09/16 11:07 Dose: Not Given Ferrous Sulfate (Ferrous Sulfate Tab*) 325 mg PO BID [facility] Last Admin: 08/09/16 11:50 Dose: 325 mg Folic Acid (Folvite Tab*) 1 mg PO DAILY [facility] Last Admin: 08/09/16 11:50 Dose: 1 mg Heparin Sodium (Porcine) (Heparin Flush Picc/Ml/Cvc(*)) 0 ml FLUSH 0600,1800 [facility] Last Admin: 08/09/16 04:10 Dose: Not Given Potassium Chloride/Dextrose (D5w 20 Meq Kcl 1000 Ml Bag*) 1,000 mls @ 125 mls/ hr IV PER RATE [facility] Stop: 08/09/16 16:59 Last Admin: 08/09/16 10:08 Dose: 125 mls/hr Ceftriaxone Sodium 1,000 mg/ (Sodium Chloride) 50 mls @ 200 mls/hr IVPB Q24H [facility] Last Admin: 08/09/16 12:59 Dose: 200 mls/hr Lorazepam (Ativan Inj*) 0 mg IV .PER WAM SCORE [facility] PRN Reason: Protocol Last Admin: 08/09/16 11:01 Dose: 1.5 mg Mometasone Furoate/Formoterol Fumar (Dulera 200/5 Mdi*) 2 puff INH BID [facility] Last Admin: 08/09/16 08:01 Dose: Not Given Multivitamins/Minerals (Theragran/Minerals Tab*) 1 tab PO DAILY [facility] Last Admin: 08/09/16 11:03 Dose: 1 tab Ondansetron HCl (Zofran Inj*) 4 mg IV Q6H PRN PRN Reason: NAUSEA Pantoprazole Sodium (Protonix Iv*) 40 mg IV BID [facility] Polyethylene Glycol/Electrolytes (Miralax*) 17 gm PO DAILY PRN PRN Reason: CONSTIPATION Last Admin: 08/09/16 11:07 Dose: 17 gm Prochlorperazine Edisylate (Compazine Inj*) 10 mg IV Q6H PRN PRN Reason: NAUSEA Thiamine HCl (Vitamin B-1 Tab*) 100 mg PO DAILY [facility] Last Admin: 08/09/16 11:03 Dose: 100 mg Tiotropium [place] (Spiriva Cap.Inh*) 1 cap INH DAILY [facility] Last Admin: 08/09/16 08:01 Dose: Not Given Vital Signs 08/08/16 08/08/16 08/08/16 17:00 18:00 18:01 Temperature 99.0 F 99.2 F 97.9 F Pulse Rate 106 108 107 Respiratory 24 21 20 Rate Blood Pressure 118/61 164/139 (mmHg) O2 Sat by Pulse 97 96 97 Oximetry 08/08/16 08/08/16 08/08/16 19:00 19:01 19:28 Temperature 99.3 F 99.0 F Pulse Rate 111 112 108 Respiratory 22 23 Rate Blood Pressure 145/97 (mmHg) O2 Sat by Pulse 99 98 96 Oximetry 08/08/16 08/08/16 08/08/16 19:58 20:00 21:00 Temperature 99.3 F 98.4 F Pulse Rate 111 112 Respiratory 21 19 22 Rate Blood Pressure 144/34 (mmHg) O2 Sat by Pulse 96 97 Oximetry 08/08/16 08/08/16 08/08/16 21:15 21:16 21:21 Temperature 99.9 F Pulse Rate 108 Respiratory 21 25 25 Rate Blood Pressure 152/27 (mmHg) O2 Sat by Pulse 98 Oximetry 08/08/16 08/08/16 08/08/16 21:47 21:53 22:00 Temperature Pulse Rate 106 105 Respiratory 23 28 21 Rate Blood Pressure 120/83 136/55 (mmHg) O2 Sat by Pulse 99 100 Oximetry 08/08/16 08/08/16 08/08/16 22:15 22:30 22:42 Temperature Pulse Rate 108 105 105 Respiratory 24 26 21 Rate Blood Pressure 165/47 (mmHg) O2 Sat by Pulse 98 100 98 Oximetry 08/08/16 08/08/16 08/08/16 22:48 23:00 23:07 Temperature 99.8 F Pulse Rate 96 109 108 Respiratory 25 21 24 Rate Blood Pressure 110/60 (mmHg) O2 Sat by Pulse 96 98 98 Oximetry 08/08/16 08/08/16 08/09/16 23:09 23:14 00:00 Temperature 99.8 F 99.2 F Pulse Rate 107 104 Respiratory 16 23 Rate Blood Pressure 148/95 (mmHg) O2 Sat by Pulse 94 98 Oximetry 08/09/16 08/09/16 08/09/16 00:01 01:00 01:15 Temperature 99.0 F Pulse Rate 103 Respiratory 24 16 18 Rate Blood Pressure 125/50 128/47 (mmHg) O2 Sat by Pulse 98 Oximetry 08/09/16 08/09/16 08/09/16 02:00 03:00 04:00 Temperature 99.4 F 99.8 F 99.8 F Pulse Rate 106 105 111 Respiratory 23 26 23 Rate Blood Pressure 122/36 130/84 143/34 (mmHg) O2 Sat by Pulse 98 97 97 Oximetry 08/09/16 08/09/16 08/09/16 04:26 05:00 05:35 Temperature 98.2 F Pulse Rate 107 Respiratory 19 22 25 Rate Blood Pressure 99/70 (mmHg) O2 Sat by Pulse 97 Oximetry 08/09/16 08/09/16 08/09/16 06:00 06:50 07:00 Temperature 100.0 F 100.2 F Pulse Rate 101 105 Respiratory 25 28 20 Rate Blood Pressure 115/49 131/62 (mmHg) O2 Sat by Pulse 97 96 Oximetry 08/09/16 08/09/16 08/09/16 08:00 08:04 09:00 Temperature 100.0 F 100.3 F Pulse Rate 109 108 110 Respiratory 22 24 20 Rate Blood Pressure 120/46 135/57 (mmHg) O2 Sat by Pulse 95 96 96 Oximetry 08/09/16 08/09/16 08/09/16 10:00 11:00 11:01 Temperature 99.7 F Pulse Rate 115 124 Respiratory 26 25 23 Rate Blood Pressure 121/63 143/76 (mmHg) O2 Sat by Pulse 95 94 Oximetry 08/09/16 08/09/16 08/09/16 11:47 11:57 12:00 Temperature 101.6 F 101.6 F Pulse Rate 110 111 Respiratory 21 25 Rate Blood Pressure 134/69 127/56 (mmHg) O2 Sat by Pulse 96 96 Oximetry 08/09/16 08/09/16 08/09/16 13:00 14:00 14:51 Temperature 101.9 F Pulse Rate 114 111 Respiratory 19 25 Rate Blood Pressure 125/60 116/56 (mmHg) O2 Sat by Pulse 96 94 Oximetry 08/09/16 08/09/16 08/09/16 15:00 15:05 15:07 Temperature Pulse Rate 105 103 104 Respiratory 24 27 28 Rate Blood Pressure 78/42 132/58 (mmHg) O2 Sat by Pulse 94 91 92 Oximetry Oxygen Devices in Use Now: Nasal Cannula Appearance: ill appearing Eyes: No Scleral Icterus, PERRLA Ears/Nose/Mouth/Throat: Clear Oropharnyx, Mucous Membranes Moist Neck: NL Appearance and Movements; NL JVP, Trachea Midline Respiratory: Symmetrical Chest Expansion and Respiratory Effort, - - rhonchi b/l Cardiovascular: RRR Abdominal: NL Sounds; No Tenderness; No Distention, No Hepatosplenomegaly Lymphatic: No Cervical Adenopathy Extremities: No Edema, No Clubbing, Cyanosis Skin: - - extensive ecchymosis on right forearm Neurological: - - AOx0, moves all extremities Result Diagrams: 08/09/16 04:50 08/09/16 04:50 Additional Lab and Data: . Microbiology and Other Data: Microbiology 08/02/16 22:45 Nasal Screen MRSA (PCR)(ELGIN) - Final Nasal Mrsa Negative Assess/Plan/Problems-Billing . Assessment: 85 yo man with p/w melena suspected in setting of upper GI bleed found with duodenal ulcer in setting of significant ETOH and NSAID use with stay c/b recurrent anemia thought 2/2 blood loss however no e/o continued bleeding as of yet all in setting of withdrawal from alcohol - Patient Problems (1) Hypernatremia Comment: D5W with 20mew K x 1 liter , recheck in AM (2) Fever Comment: new fevers check WBC with AM labs CXR wnl yesterday although pt with cough carmona out, will be difficult to collect urine check blood cultures Started ceftriaxone 08/09 (3) Anemia due to acute blood loss Comment: s/p 9 units prbc this stay PICC line in place 08/07 protonix IV gtt transitioned to IV PPI BID after 72 hrs LDH wnl, haptoglobin wnl argues against hemolysis CT A/P without RP bleed no obvious active bleeding (4) Alcohol withdrawal delirium Comment: On [place] protocol -> decreased ativan dosing per [facility] 08/09 (5) COPD (chronic obstructive pulmonary disease) Comment: stable CPAP for sleep spiriva albuterol PRN (6) Upper GI bleed Comment: IV PPI BID combination of NSAIDS and etoh use. unclear if recurrent anemia is 2/2 recurrent bleed appreciate GI assistance. No plan on repeat EGD at this point (7) DVT prophylaxis Comment: SCDs
[2016-08-09] MEDS: Acetaminophen TAB* 325 MG PO PRN (21:38)
[2016-08-09] MEDS: Pantoprazole IV* 40 MG IV SCH (21:40)
[2016-08-10] MEDS: LORazepam INJ* 2 MG/ML 1 ML VIAL IV SCH ×2 (03:16→05:43)
[2016-08-10 05:35] LABS: Hematocrit 24 % (42-52); Hemoglobin 7.8 g/dl (14.0-18.0); Mean Corpuscular HGB Conc 32 g/dl (31-36); Mean Corpuscular Hemoglobin 29 pg (27-31); Mean Corpuscular Volume 92 fL (80-94); Mean Platelet Volume 7 um3 (7.4-10.4); Red Blood Count 2.67 10^6/ul (4.0-5.4); Red Cell Distribution Width 18 % (10.5-15); White Blood Count 6.1 10^3/ul (3.5-10.8)
[2016-08-10 05:55] LABS: BUN/Creatinine Ratio 19.5 (8-20); Calcium 8.2 mg/dL (8.6-10.3); EGFR African American 71.6 (>60); EGFR Non-African American 55.7 (>60); Potassium 3.3 mmol/L (3.5-5.0)
[2016-08-10] MEDS: Mometasone/Formoter 200/5 MDI INH SCH ×2 (08:34→21:31)
[2016-08-10] MEDS: Tiotropium CAP.INH* CAP.INH/18 MCG INH SCH (08:34)
--- NOTE | 2016-08-10 09:49 | PN ---
Subjective Date of Service: 08/10/16 Interval History: Patient not able to make his needs known. Family History: Unchanged from Admission Social History: Unchanged from Admission Past Medical History: Unchanged from Admission Objective Active Medications: Acetaminophen (Tylenol Tab*) 650 mg PO Q6H PRN PRN Reason: FEVER/PAIN Last Admin: 08/09/16 21:38 Dose: 650 mg Albuterol (Ventolin 2.5 Mg/3 Ml Neb.Anyi*) 2.5 mg INH Q2H PRN PRN Reason: SOB/WHEEZING Docusate Sodium (Colace Cap*) 200 mg PO DAILY [facility] Last Admin: 08/09/16 11:07 Dose: Not Given Ferrous Sulfate (Ferrous Sulfate Tab*) 325 mg PO DAILY [facility] Folic Acid (Folvite Tab*) 1 mg PO DAILY [facility] Last Admin: 08/09/16 11:50 Dose: 1 mg Heparin Sodium (Porcine) (Heparin Flush Picc/Ml/Cvc(*)) 0 ml FLUSH 0600,1800 [facility] Last Admin: 08/10/16 05:43 Dose: 2 ml Ceftriaxone Sodium 1,000 mg/ (Sodium Chloride) 50 mls @ 200 mls/hr IVPB Q24H [facility] Last Admin: 08/09/16 12:59 Dose: 200 mls/hr Potassium Chloride/Dextrose (D5w 1/4 Ns 20 Meq Kcl 1000 Ml*) 1,000 mls @ 75 mls /hr IV PER RATE [facility] Mometasone Furoate/Formoterol Fumar (Dulera 200/5 Mdi*) 2 puff INH BID [facility] Last Admin: 08/10/16 08:34 Dose: 2 puff Multivitamins/Minerals (Theragran/Minerals Tab*) 1 tab PO DAILY [facility] Last Admin: 08/09/16 11:03 Dose: 1 tab Ondansetron HCl (Zofran Inj*) 4 mg IV Q6H PRN PRN Reason: NAUSEA Pantoprazole Sodium (Protonix Iv*) 40 mg IV BID [facility] Last Admin: 08/09/16 21:40 Dose: 40 mg Polyethylene Glycol/Electrolytes (Miralax*) 17 gm PO DAILY PRN PRN Reason: CONSTIPATION Last Admin: 08/09/16 11:07 Dose: 17 gm Prochlorperazine Edisylate (Compazine Inj*) 10 mg IV Q6H PRN PRN Reason: NAUSEA Thiamine HCl (Vitamin B-1 Tab*) 100 mg PO DAILY [facility] Last Admin: 08/09/16 11:03 Dose: 100 mg Tiotropium [place] (Spiriva Cap.Inh*) 1 cap INH DAILY [facility] Last Admin: 08/10/16 08:34 Dose: 1 cap Vital Signs 08/09/16 08/09/16 08/09/16 10:00 11:00 11:01 Temperature 99.7 F Pulse Rate 115 124 Respiratory 26 25 23 Rate Blood Pressure 121/63 143/76 (mmHg) O2 Sat by Pulse 95 94 Oximetry 08/09/16 08/09/16 08/09/16 11:47 11:57 12:00 Temperature 101.6 F 101.6 F Pulse Rate 110 111 Respiratory 21 25 Rate Blood Pressure 134/69 127/56 (mmHg) O2 Sat by Pulse 96 96 Oximetry 08/09/16 08/09/16 08/09/16 13:00 14:00 14:51 Temperature 101.9 F Pulse Rate 114 111 Respiratory 19 25 Rate Blood Pressure 125/60 116/56 (mmHg) O2 Sat by Pulse 96 94 Oximetry 08/09/16 08/09/16 08/09/16 15:00 15:05 15:07 Temperature Pulse Rate 105 103 104 Respiratory 24 27 28 Rate Blood Pressure 78/42 132/58 (mmHg) O2 Sat by Pulse 94 91 92 Oximetry 08/09/16 08/09/16 08/09/16 16:00 17:00 17:22 Temperature Pulse Rate 110 112 Respiratory 23 24 28 Rate Blood Pressure 123/62 140/68 (mmHg) O2 Sat by Pulse 96 90 Oximetry 08/09/16 08/09/16 08/09/16 18:00 19:34 19:40 Temperature 99.2 F Pulse Rate 110 102 Respiratory 18 22 22 Rate Blood Pressure 147/74 136/48 (mmHg) O2 Sat by Pulse 89 84 Oximetry 08/09/16 08/09/16 08/09/16 19:52 21:00 21:20 Temperature 100.5 F 100.5 F Pulse Rate 111 132 Respiratory 22 28 29 Rate Blood Pressure 117/82 117/82 (mmHg) O2 Sat by Pulse 82 78 Oximetry 08/09/16 08/09/16 08/09/16 23:00 23:07 23:18 Temperature 99.0 F 99.1 F Pulse Rate 88 98 Respiratory 22 22 20 Rate Blood Pressure 144/44 114/65 (mmHg) O2 Sat by Pulse 100 98 Oximetry 08/10/16 08/10/16 08/10/16 01:00 01:09 03:00 Temperature 98.9 F Pulse Rate 96 Respiratory 20 20 20 Rate Blood Pressure 120/67 (mmHg) O2 Sat by Pulse 100 Oximetry 08/10/16 08/10/16 08/10/16 03:05 03:16 04:16 Temperature 98.6 F Pulse Rate 98 Respiratory 20 20 20 Rate Blood Pressure 130/73 (mmHg) O2 Sat by Pulse 100 Oximetry 08/10/16 08/10/16 08/10/16 05:00 05:43 06:43 Temperature 98.1 F Pulse Rate 88 Respiratory 24 24 25 Rate Blood Pressure 122/58 (mmHg) O2 Sat by Pulse 99 Oximetry 08/10/16 08/10/16 08/10/16 07:51 08:00 08:37 Temperature 98.5 F Pulse Rate 98 96 Respiratory 25 25 24 Rate Blood Pressure 124/58 (mmHg) O2 Sat by Pulse 100 99 Oximetry Oxygen Devices in Use Now: Nasal Cannula Appearance: Very lethargic, falls asleep when not spoke to, partly up in bed. Looks comfortable. Eyes: No Scleral Icterus Neck: NL Appearance and Movements; NL JVP, No Thyroid Enlargement, Masses Respiratory: Symmetrical Chest Expansion and Respiratory Effort, Clear to Auscultation, Clear to Percussion Extremities: No Edema, No Clubbing, Cyanosis, - Skin: No Rash or Ulcers, No Nodules or Sclerosis, - Neurological: NL Sensation - Speech dysarthric, not appropriate. No tremor. He can state his full name but couldn't answer any other questions. Result Diagrams: 08/10/16 04:33 08/10/16 04:33 Additional Lab and Data: . Microbiology and Other Data: Microbiology 08/02/16 22:45 Nasal Screen MRSA (PCR)(ELGIN) - Final Nasal Mrsa Negative Assess/Plan/Problems-Billing . Assessment: 85 yo man with p/w melena suspected in setting of upper GI bleed found with duodenal ulcer in setting of significant ETOH and NSAID use with stay c/b recurrent anemia thought 2/2 blood loss however no e/o continued bleeding as of yet all in setting of withdrawal from alcohol - Patient Problems (1) Upper GI bleed Current Visit: Yes Status: Acute Code(s): K92.2 - GASTROINTESTINAL HEMORRHAGE, UNSPECIFIED SNOMED Code(s): 08112758 Comment: Duodenal ulcer found on EGD. Needs repeat EGD in 2 months. Continue BID PPI, IV for now. combination of NSAIDS and etoh use at home. Iron studies equivocal, continue once daily appreciate GI assistance. No plan on repeat EGD at this point (2) Hypernatremia Current Visit: Yes Status: Acute Code(s): E87.0 - HYPEROSMOLALITY AND HYPERNATREMIA SNOMED Code(s): 74692222 Comment: Na+ 146 6/18. D5/1/4NS with 20 KCL at 75/hr, watch po intake. (3) Alcohol withdrawal delirium Current Visit: Yes Status: Acute Priority: High Code(s): F10.231 - ALCOHOL DEPENDENCE WITH WITHDRAWAL DELIRIUM SNOMED Code(s): 6907341 Comment: Stop WAM, may be sedated at present. Treat with benzo's as needed. (4) COPD (chronic obstructive pulmonary disease) Current Visit: Yes Status: Acute Code(s): J44.9 - CHRONIC OBSTRUCTIVE PULMONARY DISEASE, UNSPECIFIED SNOMED Code(s): 61578215 Comment: stable spiriva daily, albuterol PRN CPAP
[2016-08-10] MEDS: Docusate CAP* 100 MG PO SCH (10:30)
[2016-08-10] MEDS: Thiamine TAB* 100 MG TAB PO SCH (10:32)
[2016-08-10] MEDS: Folic Acid TAB* 1 MG PO SCH (10:33)
[2016-08-10] MEDS: Multivitamins/Minerals TAB PO SCH (10:36)
--- NOTE | 2016-08-10 10:54 | RAD ---
INDICATION: PICC line verification COMPARISON: Similar chest x-ray August 08, 2016 TECHNIQUE: Single AP portable view of the chest was obtained. FINDINGS: Image quality is compromised due to the relative inferiority of a portable chest x-ray. Again seen is a left-sided PICC line. The tip appears to terminate at the junction of the left brachiocephalic vein and superior vena cava, retracted slightly from the previous radiograph. The heart is normal size. Faint patchy densities overlying the bilateral lungs are unchanged from the previous x-ray. IMPRESSION: 1. The left-sided PICC line appears to have been retracted slightly with the tip now terminating at the junction of the left brachiocephalic vein and superior vena cava relative to the August 08, 2016 chest x-ray. 2. Mild cardiomegaly and patchy densities in the lungs are most consistent with mild pulmonary edema.
[2016-08-10] MEDS: Ferrous Sulfate TAB* 325 MG PO SCH (11:09)
[2016-08-10] MEDS: D5W 1/4 NS 20 Meq KCL 1000 ML* 1,000 ML IV SCH (12:07)
[2016-08-10] MEDS: Pantoprazole IV* 40 MG IV SCH ×2 (12:07→20:51)
[2016-08-10] MEDS: cefTRIAXone VIAL(*) 1,000 MG in NS 0.9% 50 ML* 50 ML IVPB SCH (12:10)
[2016-08-10] MEDS: chlordiazePOXIDE CAP* 25 MG PO PRN (17:50)
[2016-08-10] MEDS: LORazepam INJ* 2 MG/ML 1 ML VIAL IV PUSH PRN (20:51)
[2016-08-11] MEDS: D5W 1/4 NS 20 Meq KCL 1000 ML* 1,000 ML IV SCH ×3 (01:48→16:18)
[2016-08-11 05:22] LABS: Comments Flag Yes; Hematocrit 21 % (42-52); Mean Corpuscular HGB Conc 32 g/dl (31-36); Mean Corpuscular Hemoglobin 29 pg (27-31); Mean Corpuscular Volume 91 fL (80-94); Mean Platelet Volume 7 um3 (7.4-10.4); Red Blood Count 2.31 10^6/ul (4.0-5.4); Red Cell Distribution Width 17 % (10.5-15); White Blood Count 6.1 10^3/ul (3.5-10.8)
[2016-08-11 05:23] LABS: Hemoglobin 6.7 g/dl (14.0-18.0)
[2016-08-11 05:36] LABS: BUN/Creatinine Ratio 22.5 (8-20); EGFR African American 67.8 (>60); EGFR Non-African American 52.7 (>60); Potassium 3.2 mmol/L (3.5-5.0)
--- NOTE | 2016-08-11 07:22 | PN ---
Subjective Date of Service: 08/11/16 Interval History: Sleeping in bed. Family History: Unchanged from Admission Social History: Unchanged from Admission Past Medical History: Unchanged from Admission Objective Active Medications: Acetaminophen (Tylenol Tab*) 650 mg PO Q6H PRN PRN Reason: FEVER/PAIN Last Admin: 08/09/16 21:38 Dose: 650 mg Albuterol (Ventolin 2.5 Mg/3 Ml Neb.Anyi*) 2.5 mg INH Q2H PRN PRN Reason: SOB/WHEEZING Chlordiazepoxide (Librium Cap*) 25 mg PO Q4H PRN PRN Reason: AGITATION Last Admin: 08/10/16 17:50 Dose: 25 mg Ferrous Sulfate (Ferrous Sulfate Tab*) 325 mg PO DAILY [facility] Folic Acid (Folvite Tab*) 1 mg PO DAILY [facility] Last Admin: 08/10/16 10:33 Dose: 1 mg Heparin Sodium (Porcine) (Heparin Flush Picc/Ml/Cvc(*)) 0 ml FLUSH 0600,1800 [facility] Last Admin: 08/11/16 05:40 Dose: 1 ml Potassium Chloride/Dextrose (D5w 1/4 Ns 20 Meq Kcl 1000 Ml*) 1,000 mls @ 125 mls/hr IV PER RATE [facility] Lorazepam (Ativan Inj*) 1 mg IV PUSH Q6H PRN PRN Reason: AGITATION Last Admin: 08/10/16 20:51 Dose: 1 mg Mometasone Furoate/Formoterol Fumar (Dulera 200/5 Mdi*) 2 puff INH BID [facility] Last Admin: 08/10/16 21:31 Dose: 2 puff Multivitamins/Minerals (Theragran/Minerals Tab*) 1 tab PO DAILY [facility] Last Admin: 08/10/16 10:36 Dose: 1 tab Ondansetron HCl (Zofran Inj*) 4 mg IV Q6H PRN PRN Reason: NAUSEA Pantoprazole Sodium (Protonix Iv*) 40 mg IV BID [facility] Last Admin: 08/10/16 20:51 Dose: 40 mg Polyethylene Glycol/Electrolytes (Miralax*) 17 gm PO DAILY PRN PRN Reason: CONSTIPATION Last Admin: 08/09/16 11:07 Dose: 17 gm Prochlorperazine Edisylate (Compazine Inj*) 10 mg IV Q6H PRN PRN Reason: NAUSEA Thiamine HCl (Vitamin B-1 Tab*) 100 mg PO DAILY [facility] Last Admin: 08/10/16 10:32 Dose: 100 mg Tiotropium [place] (Spiriva Cap.Inh*) 1 cap INH DAILY [facility] Last Admin: 08/10/16 08:34 Dose: 1 cap Vital Signs 08/10/16 08/10/16 08/10/16 07:51 08:00 08:37 Temperature 98.5 F Pulse Rate 98 96 Respiratory 25 25 24 Rate Blood Pressure 124/58 (mmHg) O2 Sat by Pulse 100 99 Oximetry 08/10/16 08/10/16 08/10/16 09:10 09:58 11:59 Temperature 100.1 F 98.8 F Pulse Rate 99 95 Respiratory 18 16 Rate Blood Pressure 139/67 113/63 (mmHg) O2 Sat by Pulse 100 97 100 Oximetry 08/10/16 08/10/16 08/10/16 14:04 15:50 17:50 Temperature 98.1 F Pulse Rate 111 Respiratory 18 26 Rate Blood Pressure 115/59 (mmHg) O2 Sat by Pulse 97 96 Oximetry 08/10/16 08/10/16 08/10/16 19:50 20:00 20:14 Temperature 97.5 F Pulse Rate 61 Respiratory 24 24 24 Rate Blood Pressure 111/62 (mmHg) O2 Sat by Pulse 90 Oximetry 08/10/16 08/10/16 08/10/16 20:21 20:51 21:32 Temperature 98.2 F Pulse Rate 112 Respiratory 24 20 Rate Blood Pressure (mmHg) O2 Sat by Pulse 95 Oximetry 08/10/16 08/11/16 08/11/16 21:51 00:07 00:46 Temperature Pulse Rate 101 Respiratory 22 24 Rate Blood Pressure 115/62 (mmHg) O2 Sat by Pulse 98 95 Oximetry 08/11/16 03:40 Temperature 97.7 F Pulse Rate 96 Respiratory 16 Rate Blood Pressure 101/56 (mmHg) O2 Sat by Pulse 97 Oximetry Oxygen Devices in Use Now: Nasal Cannula Appearance: Supine in bed, asleep. Looks comfortable. Occ mild cough. Eyes: No Scleral Icterus Neck: NL Appearance and Movements; NL JVP, No Thyroid Enlargement, Masses Respiratory: Symmetrical Chest Expansion and Respiratory Effort, Clear to Auscultation, Clear to Percussion Cardiovascular: NL Sounds; No Murmurs; No JVD, RRR, No Edema, - Extremities: No Edema, No Clubbing, Cyanosis, - Skin: No Rash or Ulcers, No Nodules or Sclerosis, - Neurological: - - fasiculations upper chest. No tremor. Result Diagrams: 08/11/16 05:05 08/11/16 05:05 Additional Lab and Data: . Microbiology and Other Data: Microbiology 08/02/16 22:45 Nasal Screen MRSA (PCR)(ELGIN) - Final Nasal Mrsa Negative Assess/Plan/Problems-Billing . Assessment: 85 yo man with p/w melena suspected in setting of upper GI bleed found with duodenal ulcer in setting of significant ETOH and NSAID use with stay c/b recurrent anemia thought 2/2 blood loss however no e/o continued bleeding as of yet all in setting of withdrawal from alcohol - Patient Problems (1) Upper GI bleed Current Visit: Yes Status: Acute Code(s): K92.2 - GASTROINTESTINAL HEMORRHAGE, UNSPECIFIED SNOMED Code(s): 25772028 Comment: Duodenal ulcer found on EGD. Needs repeat EGD in 2 months. Continue BID PPI, IV fluids for now. combination of NSAIDS and etoh use at home. Iron studies equivocal, continue FeSO4 once daily 2 U PRBC ordered 08/11/16. CBC, INR 08/12. (2) Hypernatremia Current Visit: Yes Status: Acute Code(s): E87.0 - HYPEROSMOLALITY AND HYPERNATREMIA SNOMED Code(s): 24892676 Comment: Na+ 143 08/11. D5/1/4NS with 20 KCL at 125/hr, watch po intake. BMP 08/12. (3) Alcohol withdrawal delirium Current Visit: Yes Status: Acute Priority: High Code(s): F10.231 - ALCOHOL DEPENDENCE WITH WITHDRAWAL DELIRIUM SNOMED Code(s): 0445208 Comment: Stop WAM, may be sedated at present. Treat with benzo's as needed. (4) COPD (chronic obstructive pulmonary disease) Current Visit: Yes Status: Acute Code(s): J44.9 - CHRONIC OBSTRUCTIVE PULMONARY DISEASE, UNSPECIFIED SNOMED Code(s): 20049778 Comment: stable spiriva daily, albuterol PRN CPAP (5) Altered mental status Current Visit: Yes Status: Acute Code(s): R41.82 - ALTERED MENTAL STATUS, UNSPECIFIED SNOMED Code(s): 725551251 Comment: CT brain ordered 08/11.
[2016-08-11] MEDS: Mometasone/Formoter 200/5 MDI INH SCH ×2 (08:30→20:24)
[2016-08-11] MEDS: Pantoprazole IV* 40 MG IV SCH ×2 (08:31→22:00)
[2016-08-11] MEDS: Tiotropium CAP.INH* CAP.INH/18 MCG INH SCH (08:31)
--- NOTE | 2016-08-11 08:32 | RAD ---
Indication: Altered mental status. Combative. Comparison: No relevant prior exams available on the [facility] [place] for comparison. Technique: Noncontrast CT vertex of skull through foramen magnum. Report: Moderate prominence of the cerebral sulci and cerebellar fissures reflecting atrophy. Negative for rees matter white matter obscuration, intra or extra-axial hemorrhage, or mass effect. No suspicious calvarial or skull base lesion evident. Clear visualized paranasal sinuses and mastoid air spaces. Suggestion of previous resection of the medial griffin of the maxillary sinuses. Arthropathic change at the atlantoaxial articulation with calcification at the level of the transverse ligament. Negative for scalp hematoma. IMPRESSION: 1. Involutional change. 2. No acute intracranial process evident.
[2016-08-11] MEDS: Ferrous Sulfate TAB* 325 MG PO SCH (08:38)
[2016-08-11] MEDS: Multivitamins/Minerals TAB PO SCH (08:38)
[2016-08-11] MEDS: Thiamine TAB* 100 MG TAB PO SCH (08:38)
[2016-08-11] MEDS: Folic Acid TAB* 1 MG PO SCH (08:38)
--- NOTE | 2016-08-11 09:33 | RAD ---
Indication: Fever. Single frontal view of the chest performed at 0910 hours was reviewed. Comparison is made with previous exam dated August 10, 2016. Central line appears to be in the innominate vein. Bibasilar atelectasis is likely present. There may be some mild vascular congestion. IMPRESSION: CENTRAL CATHETER IN THE INNOMINATE VEIN WITH BIBASILAR ATELECTASIS.
[2016-08-11] MEDS: Acetaminophen TAB* 325 MG PO PRN (15:58)
--- NOTE | 2016-08-11 16:52 | RAD ---
INDICATION: Right wrist pain COMPARISON: None TECHNIQUE: AP, lateral, and oblique views were obtained. FINDINGS: There is osteopenia. There is advanced osteoarthritis about the radiocarpal joint. There is a SLAC wrist deformity. There is deformity of the proximal carpal row. There is advanced osteoarthritis but the first MCP joint. There is diffuse soft tissue swelling with soft tissue calcifications about the distal radial ulnar joint. IMPRESSION: ADVANCED OSTEOARTHRITIC CHANGES. DIFFUSE SOFT TISSUE SWELLING.
[2016-08-11] MEDS: LORazepam INJ* 2 MG/ML 1 ML VIAL IV PUSH PRN (17:41)
[2016-08-11] MEDS: chlordiazePOXIDE CAP* 25 MG PO PRN (18:33)
[2016-08-12] MEDS: D5W 1/4 NS 20 Meq KCL 1000 ML* 1,000 ML IV SCH (02:47)
[2016-08-12 05:39] LABS: Hematocrit 27 % (42-52); Hemoglobin 9.2 g/dl (14.0-18.0); Mean Corpuscular HGB Conc 34 g/dl (31-36); Mean Corpuscular Hemoglobin 30 pg (27-31); Mean Corpuscular Volume 88 fL (80-94); Mean Platelet Volume 7 um3 (7.4-10.4); Red Cell Distribution Width 16 % (10.5-15); White Blood Count 6.6 10^3/ul (3.5-10.8)
[2016-08-12 05:59] LABS: BUN/Creatinine Ratio 21.8 (8-20); EGFR African American 89.9 (>60); EGFR Non-African American 69.9 (>60); Potassium 3.7 mmol/L (3.5-5.0)
--- NOTE | 2016-08-12 08:38 | DCNOTE ---
Subjective Date of Service: 08/12/16 Interval History: He offers no c/o. He denies pain. Family History: Unchanged from Admission Social History: Unchanged from Admission Past Medical History: Unchanged from Admission Objective Active Medications: Acetaminophen (Tylenol Tab*) 650 mg PO Q4H PRN PRN Reason: PAIN Last Admin: 08/11/16 15:58 Dose: 650 mg Albuterol (Ventolin 2.5 Mg/3 Ml Neb.Anyi*) 2.5 mg INH Q2H PRN PRN Reason: SOB/WHEEZING Chlordiazepoxide (Librium Cap*) 25 mg PO Q4H PRN PRN Reason: AGITATION Last Admin: 08/11/16 18:33 Dose: 25 mg Ferrous Sulfate (Ferrous Sulfate Tab*) 325 mg PO DAILY [facility] Last Admin: 08/11/16 08:38 Dose: 325 mg Folic Acid (Folvite Tab*) 1 mg PO DAILY [facility] Last Admin: 08/11/16 08:38 Dose: 1 mg Heparin Sodium (Porcine) (Heparin Flush Picc/Ml/Cvc(*)) 0 ml FLUSH 0600,1800 [facility] Last Admin: 08/12/16 06:32 Dose: 1 ml Potassium Chloride/Dextrose (D5w 1/4 Ns 20 Meq Kcl 1000 Ml*) 1,000 mls @ 125 mls/hr IV PER RATE [facility] Last Admin: 08/12/16 02:47 Dose: 125 mls/hr Lorazepam (Ativan Inj*) 1 mg IV PUSH Q6H PRN PRN Reason: AGITATION Last Admin: 08/11/16 17:41 Dose: 1 mg Mometasone Furoate/Formoterol Fumar (Dulera 200/5 Mdi*) 2 puff INH BID [facility] Last Admin: 08/11/16 20:24 Dose: 2 puff Multivitamins/Minerals (Theragran/Minerals Tab*) 1 tab PO DAILY [facility] Last Admin: 08/11/16 08:38 Dose: 1 tab Ondansetron HCl (Zofran Inj*) 4 mg IV Q6H PRN PRN Reason: NAUSEA Pantoprazole Sodium (Protonix Iv*) 40 mg IV BID [facility] Last Admin: 08/11/16 22:00 Dose: 40 mg Polyethylene Glycol/Electrolytes (Miralax*) 17 gm PO DAILY PRN PRN Reason: CONSTIPATION Last Admin: 08/09/16 11:07 Dose: 17 gm Prochlorperazine Edisylate (Compazine Inj*) 10 mg IV Q6H PRN PRN Reason: NAUSEA Thiamine HCl (Vitamin B-1 Tab*) 100 mg PO DAILY [facility] Last Admin: 08/11/16 08:38 Dose: 100 mg Tiotropium [place] (Spiriva Cap.Inh*) 1 cap INH DAILY [facility] Last Admin: 08/11/16 08:31 Dose: Not Given Vital Signs 08/11/16 08/11/16 08/11/16 08:58 09:00 11:59 Temperature 98.1 F 98.2 F Pulse Rate 90 86 Respiratory 20 16 20 Rate Blood Pressure 108/46 (mmHg) O2 Sat by Pulse 97 96 Oximetry 08/11/16 08/11/16 08/11/16 12:01 12:15 16:33 Temperature 98.2 F 98.4 F 98.2 F Pulse Rate 86 84 85 Respiratory 20 18 18 Rate Blood Pressure 108/46 120/46 113/46 (mmHg) O2 Sat by Pulse 96 99 92 Oximetry 08/11/16 08/11/16 08/11/16 17:41 18:33 20:00 Temperature Pulse Rate Respiratory 22 20 16 Rate Blood Pressure (mmHg) O2 Sat by Pulse Oximetry 08/11/16 08/11/16 20:26 23:24 Temperature Pulse Rate 82 Respiratory 20 20 Rate Blood Pressure (mmHg) O2 Sat by Pulse 93 Oximetry Oxygen Devices in Use Now: None Appearance: Alert, in a chair, enjoying his breakfast. Sociable. Looks comfortable. Eyes: No Scleral Icterus Respiratory: Symmetrical Chest Expansion and Respiratory Effort, Clear to Auscultation, Clear to Percussion Cardiovascular: NL Sounds; No Murmurs; No JVD, RRR, No Edema, - Extremities: No Edema, No Clubbing, Cyanosis, - Skin: No Rash or Ulcers, No Nodules or Sclerosis, - Neurological: NL Sensation, - - Diminished hearing. Sociable. Knows his full name, his age, but gave "September" for present month. Result Diagrams: 08/12/16 05:30 08/12/16 05:30 Additional Lab and Data: . Microbiology and Other Data: Microbiology 08/02/16 22:45 Nasal Screen MRSA (PCR)([facility]) - Final Nasal Mrsa Negative Assess/Plan/Problems-Billing . Assessment: 85 yo man with p/w melena suspected in setting of upper GI bleed found with duodenal ulcer in setting of significant ETOH and NSAID use with stay c/b recurrent anemia thought 2/2 blood loss however no e/o continued bleeding as of yet all in setting of withdrawal from alcohol - Patient Problems (1) Upper GI bleed Current Visit: Yes Status: Acute Code(s): K92.2 - GASTROINTESTINAL HEMORRHAGE, UNSPECIFIED SNOMED Code(s): 55686141 Comment: Duodenal ulcer found on EGD. Needs repeat EGD in 2 months. Continue BID PPI for 6 more weeks then daily. combination of NSAIDS and etoh use at home. Iron studies equivocal, continue FeSO4 once daily 2 U PRBC ordered 08/11/16, total 11 U this admission. Hgb 9.2 on 08/12. CBC 1 week. INR wnl on 08/12. (2) Hypernatremia Current Visit: Yes Status: Acute Code(s): E87.0 - HYPEROSMOLALITY AND HYPERNATREMIA SNOMED Code(s): 19012704 Comment: Na+ 138 08/12. Oral intake 1130 08/11. Repeat BMP 1 week. (3) Alcohol withdrawal delirium Current Visit: Yes Status: Acute Priority: High Code(s): F10.231 - ALCOHOL DEPENDENCE WITH WITHDRAWAL DELIRIUM SNOMED Code(s): 2191148 Comment: Mental status improved. Received lorazepam 1 mg IV once on 08/11, would use haloperidol in SNF for agitation. (4) COPD (chronic obstructive pulmonary disease) Current Visit: Yes Status: Acute Code(s): J44.9 - CHRONIC OBSTRUCTIVE PULMONARY DISEASE, UNSPECIFIED SNOMED Code(s): 50724965 Comment: stable spiriva daily, albuterol PRN CPAP (5) Altered mental status Current Visit: Yes Status: Acute Code(s): R41.82 - ALTERED MENTAL STATUS, UNSPECIFIED SNOMED Code(s): 094070494 Comment: CT brain no acute changes on 08/11. Status and Disposition: Discharge to [facility] now.
[2016-08-12] MEDS: Thiamine TAB* 100 MG TAB PO SCH (08:43)
[2016-08-12] MEDS: Multivitamins/Minerals TAB PO SCH (08:43)
[2016-08-12] MEDS: Ferrous Sulfate TAB* 325 MG PO SCH (08:43)
[2016-08-12] MEDS: Pantoprazole IV* 40 MG IV SCH (08:44)
[2016-08-12] MEDS: Folic Acid TAB* 1 MG PO SCH (08:44)
[2016-08-12] MEDS ORDERED: Haloperidol TAB* 0.5 MG PO PRN (08:44)
--- NOTE | 2016-08-12 08:44 | PN ---
Progress Note - Progress Note Note: Time spent on discharge 50 minutes.
[2016-08-12] MEDS: Omeprazole CAP* 20 MG PO SCH ×2 (09:07→17:16)
[2016-08-12] MEDS: Tiotropium CAP.INH* CAP.INH/18 MCG INH SCH (09:12)
[2016-08-12] MEDS: Mometasone/Formoter 200/5 MDI INH SCH ×2 (09:13→22:15)
--- NOTE | 2016-08-13 02:36 | TRS ---
CC: Dr. Jimenez; [facility] * TRANSFER SUMMARY: DATE OF ADMISSION: DATE OF TRANSFER: 08/12/16 HISTORY: This 85-year-old man presented with history of melena and dizziness. He had melena for 2 to 3 days before admission, although his said this may have been occurring for weeks. The patient himself is quite a poor historian. He has been taking diclofenac and ibuprofen at home as well as drinking 2 to 4 beers plus 1 to 2 shots of vodka every day. This may be an underestimate of what he actually drank. The patient was felt to have an upper GI hemorrhage. He was initially admitted to telemetry. He became unstable and was sent to the ICU. He received a total of 11 units of packed red blood cells during this admission. He underwent endoscopy on 08/03/[address] Keita. He had duodenal ulcer, which was not bleeding at the time of endoscopy. The patient had rather severe alcohol withdrawal syndrome. I think this may have largely if not completely resolved by the day of discharge. I am not sure what his baseline is and will be in the future. There may be some underlying degree of chronic encephalopathy. I would treat his any agitation that he has at this point with low-dose haloperidol rather than benzodiazepines as I think by this time the problem is more of his chronic encephalopathy than acute alcohol withdrawal syndrome, however, it is hard to be certain of this. He did have hyponatremia, which resolved. His oral intake has markedly improved the last couple of days in the hospital. FINAL DIAGNOSES: 1. Upper gastrointestinal bleed. 2. Hyponatremia. 3. Alcohol withdrawal. 4. Chronic obstructive pulmonary disease. 5. Altered mental status, possible chronic encephalopathy. DISCHARGE MEDICATIONS: 1. Acetaminophen 650 mg every 4 hours p.r.n. 2. Albuterol 2.5 mg by nebulizer every 2 hours p.r.n. 3. Ferrous sulfate 325 mg daily. 4. Folic acid 1 mg daily. 5. Haloperidol 0.5 mg every 4 hours p.r.n. 6. Mometasone/formoterol 200/5 two puffs b.i.d. 7. Multivitamin with minerals daily. 8. Omeprazole 20 mg b.i.d. for 6 weeks, then once daily. 9. Polyethylene glycol 17 g daily p.r.n. 10. Thiamine 100 mg daily. 11. Tiotropium 1 capsule daily. I suggest the patient have CBC and basic metabolic profile in 1 week. DISPOSITION: The patient is transferred to [facility]. [id number]/[facility] #: [id number] MTDD
[2016-08-13] MEDS: Mometasone/Formoter 200/5 MDI INH SCH (07:18)
[2016-08-13] MEDS: Tiotropium CAP.INH* CAP.INH/18 MCG INH SCH (07:18)
[2016-08-13] MEDS ORDERED: Haloperidol INJ IV/IM* 5 MG/ML AMP IM ONE (07:18)
[2016-08-13] MEDS: Polyethylene Glycol 3350* 17 GM PACKET PO PRN (07:47)
[2016-08-13] MEDS: Ferrous Sulfate TAB* 325 MG PO SCH (07:48)
[2016-08-13] MEDS: Thiamine TAB* 100 MG TAB PO SCH (07:48)
[2016-08-13] MEDS: Omeprazole CAP* 20 MG PO SCH (07:48)
[2016-08-13] MEDS: Acetaminophen TAB* 325 MG PO PRN (07:49)
[2016-08-13] MEDS: Multivitamins/Minerals TAB PO SCH (07:49)
[2016-08-13] MEDS: Folic Acid TAB* 1 MG PO SCH (07:49)
--- NOTE | 2016-08-13 09:06 | RAD ---
Indication: Right wrist injury 3 views of the right wrist demonstrates degenerative changes of the radiocarpal joint. There is tear of the scapholunate ligament with widening of the scapholunate interval. This is consistent with scapholunate advanced collapse. There is ulnar positive variance noted. Chondrocalcinosis is noted. Marked degenerative changes of the first metacarpophalangeal joint is noted. 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 No fracture is noted.
[2016-08-13 10:43] VITALS: BP 136/59
== END 2016-08-13 11:50 | DRG 378 ==
LOC: ED 20:04 → MEDTELE 21:22 → ICU 22:26 → MED 08-04 14:06 → ICU 08-06 01:14 → MEDTELE 08-09 19:22 → MED 08-12 18:15
PROVIDERS: ADMIT Hospitalist; ATTEND Internal Medicine
PROC: 0DB68ZX Excision of Stomach, Via Natural or Artificial Opening Endoscopic, Diagnostic (ICD-10-PCS; 2016-08-03)
PROC: 02HV33Z Insertion of Infusion Device into Superior Vena Cava, Percutaneous Approach (ICD-10-PCS; 2016-08-07)
PROC: 30233N1 Transfusion of Nonautologous Red Blood Cells into Peripheral Vein, Percutaneous Approach (ICD-10-PCS; principal; 2016-08-11)
DX: K26.4 Chronic or unspecified duodenal ulcer with hemorrhage (principal); F10.231 Alcohol dependence with withdrawal delirium; E87.0 Hyperosmolality and hypernatremia; J44.9 Chronic obstructive pulmonary disease, unspecified; D62 Acute posthemorrhagic anemia; K92.1 Melena; M19.90 Unspecified osteoarthritis, unspecified site; Z88.0 Allergy status to penicillin; Z80.8 Family history of malignant neoplasm of other organs or systems; R40.2412 Glasgow coma scale score 13-15, at arrival to emergency department; I10 Essential (primary) hypertension; Z87.891 Personal history of nicotine dependence; Z80.1 Family history of malignant neoplasm of trachea, bronchus and lung; Z80.52 Family history of malignant neoplasm of bladder; Z82.49 Family history of ischemic heart disease and other diseases of the circulatory system; Z80.42 Family history of malignant neoplasm of prostate; Z82.61 Family history of arthritis; R55 Syncope and collapse; R07.89 Other chest pain; Y90.9 Presence of alcohol in blood, level not specified; R63.4 Abnormal weight loss; T39.395A Adverse effect of other nonsteroidal anti-inflammatory drugs [NSAID], initial encounter; R09.02 Hypoxemia; R50.9 Fever, unspecified; Z79.01 Long term (current) use of anticoagulants; Z68.30 Body mass index [BMI] 30.0-30.9, adult
CPT/HCPCS: 36415; 70450; 71010; 74176; 80048; 80053; 80320; 82140; 82270; 82607; 82728; 82746; 83010; 83540; 83550; 83615; 83735; 84134; 84484; 85014; 85018; 85025; 85027; 85045; 85610; 85730; 86850; 86900; 86901; 86922; 87040; 87077; 87641; 93005; 93306; 94640; 94660; 94760; A9270-GY; C1751; G0480; J0330; J0696; J1940; J2060; J2250; J2997; P9040

== ENCOUNTER 2016-10-18 22:05 | Emergency (ER) | payer MEDICARE ==
[2016-10-18] MEDS ORDERED: Acetaminophen TAB* 325 MG PO ONE (22:54)
--- NOTE | 2016-10-18 23:11 | ED ---
Vickie Anderson Rebecca, scribed for Denver Webb MD on 10/18/16 at 2232 . Head Injury - HPI Summary HPI Summary: Pt is an 86 y/o M BIBA who presents to ED c/o head pain and swelling on the R temporal region s/p fall. Pt reports that at about 2100 he fell backwards down approximately 5-6 carpeted steps after stepping back. Negative LOC. Associated head pain is currently mild, ranked 2/10. Sx aggravated and alleviated by nothing. Additionally notes chest pain immediately after the fall which are now completely resolved as well as a skin tear to the right upper arm. Is not on any blood thinners. - History Of Current Complaint Chief Complaint: EDHeadInjury Stated Complaint: FALL Time Seen by Provider: 10/18/16 22:18 Hx Obtained From: Patient Mechanism Of Injury: Fall From Height Of: - Down 5-6 stairs Onset/Duration: Traumatic, Still Present Onset of Pain: Prior to Arrival Severity Initially: Mild Pain Intensity: 2 Pain Scale Used: 0-10 Numeric Location of Head Injury: Temporal - Right Aggravating Factor(s): Other: - Nothing Alleviating Factor(s): Other: - Nothing Associated Signs And Symptoms: Swelling, Other: - CP immediately after episode - resolved - Allergies/Home Medications Allergies/Adverse Reactions: Allergies Allergy/AdvReac Type Severity Reaction Status Date / Time Penicillins [PCN] Allergy Itching Verified 10/18/16 22:14 PMH/Surg Hx/FS Hx/Imm Hx Endocrine/Hematology History: Denies: Hx Diabetes Cardiovascular History: Reports: Hx Hypertension Respiratory History: Reports: Hx Chronic Obstructive Pulmonary Disease (COPD) Denies: Hx Asthma History: Denies: Hx Dialysis Sensory History: Reports: Hx Contacts or Glasses, Hx Deafness, Hx Hearing Aid Opthamlomology History: Reports: Hx Contacts or Glasses Neurological History: Denies: Hx Dementia, Hx Seizures - Cancer History Cancer Type, Location and Year: Denies Hx CA - Surgical History Surgery Procedure, Year, and Place: bilateral ankles - years ago Infectious Disease History: No Infectious Disease History: Denies: Traveled Outside the [place] in Last 30 Days - Family History Known Family History: Positive: Other - Spinal tumor - Social History Alcohol Use: Daily Substance Use Type: Reports: None Smoking Status (MU): Former Smoker Review of Systems Negative: Fever Positive: Chest Pain - immediately after fall - resolved Positive: Other - Head pain s/p fall Positive: Other - Swlling in the R temporal region s/p fall, skin tear to the right upper arm All Other Systems Reviewed And Are Negative: Yes Physical Exam Triage Information Reviewed: Yes Vital Signs On Initial Exam: Initial Vitals Temp Pulse Resp BP Pulse Ox 98.2 F 78 18 133/71 97 10/18/16 22:10 10/18/16 22:10 10/18/16 22:10 10/18/16 22:10 10/18/16 22:10 Vital Signs Reviewed: Yes Appearance: Positive: Well-Appearing, No Pain Distress Skin: Positive: Warm Head/Face: Positive: Normal Head/Face Inspection Eyes: Positive: LAURA ENT: Positive: Hearing grossly normal Neck: Positive: Supple Respiratory/Lung Sounds: Positive: Breath Sounds Present Cardiovascular: Positive: RRR Abdomen Description: Positive: Nontender, Soft Musculoskeletal: Positive: Other - skin tear lt elbow Neurological: Positive: Alert, Oriented to Person Place, Time Psychiatric: Positive: Affect/Mood Appropriate - Joesph Coma Scale Coma Scale Total: 15 Diagnostics - Vital Signs Vital Signs Temp Pulse Resp BP Pulse Ox 10/18/16 22:10 98.2 F 78 18 133/71 97 - Laboratory Lab Statement: Any lab studies that have been ordered have been reviewed, and results considered in the medical decision making process. - Radiology Pelvis XR Xray Interpretation: No Acute Changes Radiology Interpretation Completed By: ED Physician - CT CT Brain CT Interpretation: No Acute Changes - Involutional changes. No hemorrhage. no mass. No visible infarct. The osseous structures are intact. Right frontal scalp hematoma. ED physician reviewed this radiology report and agrees. CT Interpretation Completed By: Radiologist Re-Evaluation - Re-Evaluation First Eval Re-Evaluation Time: 23:37 Change: Improved Comment: Evaluated skin tear and discussed CT results and D/C plan. Head Injury Course/Dx Assessment/Plan: Pt is an 86 y/o M BIBA who presents to ED c/o head pain and swelling on the R temporal region s/p fall. Pt reports that at about 2100 he fell backwards down approximately 5-6 carpeted steps after stepping back. Negative LOC. Associated head pain is currently mild, ranked 2/10. Sx aggravated and alleviated by nothing. Additionally notes chest pain immediately after the fall which are now completely resolved. Is not on any blood thinners. Brain CT reveals "Involutional changes. No hemorrhage. no mass. No visible infarct. The osseous structures are intact. Right frontal scalp hematoma." Pelvic XR reveals no acute findings. In the ED course, the pt was administered 650 mg Tylenol PO. He will be D/C to home with Dx of closed head injury and a follow up with his PCP. He understands and agrees. Elevated BP noted and advised to f/u with PCP. - Diagnoses Provider Diagnoses: Closed head injury Discharge - Discharge Plan Condition: Stable Disposition: HOME Patient Education Materials: Head Injury (ED) Referrals: Rolo Jimenez MD [Primary Care Provider] - 3 Days Additional Instructions: Return to the ED for any returning or worsening symptoms. The documentation as recorded by the Vickie ortiz Rebecca accurately reflects the service I personally performed and the decisions made by , Denver Webb MD.
[2016-10-19 00:52] VITALS: BP 122/79
--- NOTE | 2016-10-19 07:37 | RAD ---
HISTORY: Fall, head trauma COMPARISONS: August 11, 2016 TECHNIQUE: Multiple contiguous axial CT scans were obtained of the head without intravenous contrast. FINDINGS: HEMORRHAGE/INFARCT: There is no hemorrhage or acute infarct. MASSES/SHIFT: There is no mass or shift. EXTRA-AXIAL SPACES: There are no extra-axial fluid collections. SULCI AND VENTRICLES: The sulci and ventricles are normal in size and position for the patient's stated age. CEREBRUM: There are no focal parenchymal abnormalities. BRAINSTEM: There are no focal parenchymal abnormalities. CEREBELLUM: There are no focal parenchymal abnormalities. VESSELS: The vessels are grossly normal. PARANASAL SINUSES: The paranasal sinuses are clear. ORBITS: The orbits are unremarkable. BONES AND SOFT TISSUE: There is soft tissue swelling of the right frontal scalp. There is no depressed or displaced skull fracture. OTHER: None IMPRESSION: NO ACUTE INTRACRANIAL PATHOLOGY.
--- NOTE | 2016-10-19 07:46 | RAD ---
HISTORY: Fall. No other history is provided COMPARISONS: None VIEWS: 1, Single frontal view of the pelvis FINDINGS: BONE DENSITY: Normal. BONES: There is no displaced fracture. 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 ALIGNMENT: There is no dislocation. SOFT TISSUES: Unremarkable. OTHER FINDINGS: Degenerative changes are noted of the spine IMPRESSION: NO ACUTE OSSEOUS INJURY. SINGLE FRONTAL VIEW OF THE PELVIS IS AN INCOMPLETE EVALUATION FOR HIP FRACTURE. IF SYMPTOMS PERSIST, RECOMMEND REPEAT IMAGING.
== END 2016-10-19 00:51 | disposition home or self-care (01) ==
LOC: ED 22:05
DX: S09.90XA Unspecified injury of head, initial encounter (principal); I10 Essential (primary) hypertension; Z88.0 Allergy status to penicillin; Z87.891 Personal history of nicotine dependence; W10.9XXA Fall (on) (from) unspecified stairs and steps, initial encounter; Y92.9 Unspecified place or not applicable
CPT/HCPCS: 70450; 72170; 99283; A9270-GY

== ENCOUNTER 2018-04-18 17:58 | Inpatient (IN) | payer MEDICARE ==
[2018-04-18 18:40] LABS: ABS Basophils 0 10^3/ul (0-0.2); ABS Eosinophils 0.2 10^3/ul (0-0.6); ABS Monocytes 0.5 10^3/ul (0-0.8); ABS Neutrophils 4.9 10^3/ul (1.5-7.7); ABS Nucleated RBC 0 10^3/ul; Eosinophil % 3.2 %; Hematocrit 41 % (42-52); Hemoglobin 13.4 g/dl (14.0-18.0); Lymphocyte % 14.6 %; Mean Corpuscular HGB Conc 33 g/dl (31-36); Mean Corpuscular Hemoglobin 32 pg (27-31); Mean Corpuscular Volume 96 fL (80-94); Nucleated Red Blood Cells % 0; Platelet Count 249 10^3/ul (150-450); Red Blood Count 4.22 10^6/ul (4.00-5.40); Red Cell Distribution Width 14 % (10.5-15); White Blood Count 6.6 10^3/ul (3.5-10.8)
[2018-04-18 18:45] LABS: INR 0.91 (0.77-1.02)
[2018-04-18 18:56] LABS: Albumin 4.2 g/dL (3.2-5.2); Albumin/Globulin Ratio 1.4 (1-3); BUN/Creatinine Ratio 22.5 (8-20); Calcium 9.4 mg/dL (8.6-10.3); Globulin 2.9 g/dL (2-4); Magnesium 1.9 mg/dL (1.9-2.7); Potassium 3.9 mmol/L (3.5-5.0); Total Bilirubin 0.3 mg/dL (0.2-1.0); Total Protein 7.1 g/dL (6.4-8.9)
[2018-04-18 19:45] LABS: TSH (Thyroid Stimulating Horm) 10.16 mcIU/mL (0.34-5.60)
--- NOTE | 2018-04-18 21:41 | ED ---
Adult Trauma - HPI Summary HPI Summary: Patient with history of chronic EtOH and instability complains of mechanical fall tonight. Patient was accompanied by family when he fell. History of falls due to alcohol. Patient fell on the concrete has skin tears to both elbows and laceration above right eye. Patient alert and oriented. Denies any other pain injury or symptoms. Family denies LOC, AMS. Patient denies vision change, N/V, MCC[place], neck pain, back pain or abdominal pain, chest pain, SOB. Patient ambulatory. No anti-coag. History of dementia - History of Current Complaint Chief Complaint: EDFacialInjury Stated Complaint: FALL Time Seen by Provider: 04/18/18 18:07 Hx Obtained From: Patient, Family/Permanent Waver Hx From Patient Unobtainable Due To: Dementia Mechanism of Injury: Fall Ambulatory at the Scene: Yes Loss of Consciousness: no loss of consciousness Current Severity: None Pain Intensity: 0 Pain Scale Used: 0-10 Numeric Location: Head Aggravating Factor(s): Nothing Alleviating Factor(s): Nothing Associated Signs & Symptoms: Positive: Negative - Additional Pertinent History Primary Care Physician: [id number] - Allergy/Home Medications Allergies/Adverse Reactions: Allergies Allergy/AdvReac Type Severity Reaction Status Date / Time MS Penicillins [PCN] Allergy Itching Verified 04/18/18 20:42 Home Medications: Home Medications Hydrochlorothiazide 12.5 mg PO DAILY 04/18/18 [History Confirmed 04/18/18] PMH/Surg Hx/FS Hx/Imm Hx Endocrine/Hematology History: Denies: Hx Diabetes Cardiovascular History: Reports: Hx Hypertension Respiratory History: Reports: Hx Chronic Obstructive Pulmonary Disease (COPD) Denies: Hx Asthma History: Denies: Hx Dialysis Sensory History: Reports: Hx Contacts or Glasses, Hx Deafness, Hx Hearing Aid Opthamlomology History: Reports: Hx Contacts or Glasses Neurological History: Denies: Hx Dementia, Hx Seizures Psychiatric History: Denies: Hx Autism - Cancer History Cancer Type, Location and Year: Denies Hx CA - Surgical History Surgery Procedure, Year, and Place: bilateral ankles - years ago Infectious Disease History: No Infectious Disease History: Denies: Traveled Outside the [place] in Last 30 Days - Family History Known Family History: Positive: Other - Spinal tumor - Social History Alcohol Use: Daily Alcohol Amount: 12+ beers and whiskey daily Substance Use Type: Reports: None Smoking Status (MU): Former Smoker Review of Systems Constitutional: Negative Eyes: Negative ENT: Negative Cardiovascular: Negative Gastrointestinal: Negative Genitourinary: Negative Musculoskeletal: Negative Skin: Other Neurological: Negative Psychological: Normal All Other Systems Reviewed And Are Negative: Yes Physical Exam - Summary Physical Exam Summary: Skin tears bilateral elbows. Normal flexion and extension of bilateral elbows without pain. Small laceration to left elbow. Laceration above right eye. Neuro exam normal. Patient alert and oriented. No pain with palpation of neck , chest wall, abdomen, back. No other trauma noted to mouth, face or head. Full range of motion of jaw. Lower extremities flex and extend bilaterally without any pain. Triage Information Reviewed: Yes Vital Signs On Initial Exam: Initial Vitals Temp Pulse Resp BP Pulse Ox 98.3 F 69 20 133/74 95 04/18/18 18:02 04/18/18 18:02 04/18/18 18:02 04/18/18 18:02 04/18/18 18:02 Vital Signs Reviewed: Yes Appearance: Positive: Well-Appearing Head/Face: Positive: Normal Head/Face Inspection Eyes: Positive: Normal Dental: Negative: Dental Fracture @, Bleeding Neck: Positive: Supple Respiratory/Lung Sounds: Positive: Clear to Auscultation Cardiovascular: Positive: Normal Abdomen Description: Positive: Nontender Musculoskeletal: Positive: Normal Neurological: Positive: Normal Psychiatric: Positive: Normal AVPU Assessment: Alert - Joesph Coma Scale Best Eye Response: 4 - Spontaneous Best Motor Response: 6 - Obeys Commands Best Verbal Response: 5 - Oriented Coma Scale Total: 15 Procedures - Laceration/Wound Repair 1 Location: face Description: Irregular Anesthesia: Local, 1.0% Length, Depth and Shape: 3cm x 1cm Irrigated w/ Saline (ccs): 300 Debridement: minimal Number of Sutures: 5 - 6.0 ethilon Layer Closure?: No Sterile Dressing Applied?: No 2 Location: upper extremity Description: Linear Anesthesia: Local, 1.0% Length, Depth and Shape: 2cm x 1cm Irrigated w/ Saline (ccs): 200 Laceration/Wound Explored: clean Debridement: minimal Number of Sutures: 2 - 5.0 ethilon Layer Closure?: No Sterile Dressing Applied?: No Diagnostics - Vital Signs Vital Signs Temp Pulse Resp BP Pulse Ox 04/18/18 21:23 15 130/79 04/18/18 21:01 16 04/18/18 20:53 12 126/76 04/18/18 20:27 18 114/77 04/18/18 20:01 14 04/18/18 19:00 23 04/18/18 18:25 15 04/18/18 18:23 15 133/74 04/18/18 18:02 98.3 F 69 20 133/74 95 - Laboratory Lab Results: Lab Results 04/18/18 04/18/18 04/18/18 Range/Units 18:32 18:32 18:32 WBC 6.6 (3.5-10.8) 10^3/ul RBC 4.22 (4.00-5.40) 10^6/ul Hgb 13.4 L (14.0-18.0) g/dl Hct 41 L (42-52) % MCV 96 H (80-94) fL MCH 32 H (27-31) pg MCHC 33 (31-36) g/dl RDW 14 (10.5-15) % Plt Count 249 (150-450) 10^3/ul MPV 7.0 L (7.4-10.4) fL Neut % (Auto) 74.0 % Lymph % (Auto) 14.6 % Bullock % (Auto) 7.7 % Eos % (Auto) 3.2 % Baso % (Auto) 0.5 % Absolute Neuts (auto) 4.9 (1.5-7.7) 10^3/ul Absolute Lymphs (auto) 1.0 (1.0-4.8) 10^3/ul Absolute Monos (auto) 0.5 (0-0.8) 10^3/ul Absolute Eos (auto) 0.2 (0-0.6) 10^3/ul Absolute Basos (auto) 0 (0-0.2) 10^3/ul Absolute Nucleated RBC 0 10^3/ul Nucleated RBC % 0 INR (Anticoag Therapy) 0.91 (0.77-1.02) Sodium 135 (135-145) mmol/L Potassium 3.9 (3.5-5.0) mmol/L Chloride 105 (101-111) mmol/L Carbon Dioxide 20 L (22-32) mmol/L Anion Gap 10 (2-11) mmol/L BUN 27 H (6-24) mg/dL Creatinine 1.20 H (0.67-1.17) mg/dL Est GFR ( Amer) 69.0 (>60) Est GFR (Non-Af Amer) 57.0 (>60) BUN/Creatinine Ratio 22.5 H (8-20) Glucose 94 (70-100) mg/dL Lactic Acid (0.5-2.0) mmol/L Calcium 9.4 (8.6-10.3) mg/dL Magnesium 1.9 (1.9-2.7) mg/dL Total Bilirubin 0.30 (0.2-1.0) mg/dL AST 17 (13-39) U/L ALT 11 (7-52) U/L Alkaline Phosphatase 57 (34-104) U/L Ammonia (16-53) mcmol/L Total Creatine Kinase 58 (10-223) U/L Troponin I 0.00 (<0.04) ng/mL Total Protein 7.1 (6.4-8.9) g/dL Albumin 4.2 (3.2-5.2) g/dL Globulin 2.9 (2-4) g/dL Albumin/Globulin Ratio 1.4 (1-3) TSH 10.16 H (0.34-5.60) mcIU/mL Serum Alcohol 218 H (<10) mg/dL 04/18/18 04/18/18 Range/Units 18:32 18:32 WBC (3.5-10.8) 10^3/ul RBC (4.00-5.40) 10^6/ul Hgb (14.0-18.0) g/dl Hct (42-52) % MCV (80-94) fL MCH (27-31) pg MCHC (31-36) g/dl RDW (10.5-15) % Plt Count (150-450) 10^3/ul MPV (7.4-10.4) fL Neut % (Auto) % Lymph % (Auto) % Bullock % (Auto) % Eos % (Auto) % Baso % (Auto) % Absolute Neuts (auto) (1.5-7.7) 10^3/ul Absolute Lymphs (auto) (1.0-4.8) 10^3/ul Absolute Monos (auto) (0-0.8) 10^3/ul Absolute Eos (auto) (0-0.6) 10^3/ul Absolute Basos (auto) (0-0.2) 10^3/ul Absolute Nucleated RBC 10^3/ul Nucleated RBC % INR (Anticoag Therapy) (0.77-1.02) Sodium (135-145) mmol/L Potassium (3.5-5.0) mmol/L Chloride (101-111) mmol/L Carbon Dioxide (22-32) mmol/L Anion Gap (2-11) mmol/L BUN (6-24) mg/dL Creatinine (0.67-1.17) mg/dL Est GFR ( Amer) (>60) Est GFR (Non-Af Amer) (>60) BUN/Creatinine Ratio (8-20) Glucose (70-100) mg/dL Lactic Acid 1.7 (0.5-2.0) mmol/L Calcium (8.6-10.3) mg/dL Magnesium (1.9-2.7) mg/dL Total Bilirubin (0.2-1.0) mg/dL AST (13-39) U/L ALT (7-52) U/L Alkaline Phosphatase (34-104) U/L Ammonia 44 (16-53) mcmol/L Total Creatine Kinase (10-223) U/L Troponin I (<0.04) ng/mL Total Protein (6.4-8.9) g/dL Albumin (3.2-5.2) g/dL Globulin (2-4) g/dL Albumin/Globulin Ratio (1-3) TSH (0.34-5.60) mcIU/mL Serum Alcohol (<10) mg/dL Result Diagrams: 04/18/18 18:32 04/18/18 18:32 Lab Statement: Any lab studies that have been ordered have been reviewed, and results considered in the medical decision making process. Adult Trauma Course/Dx - Course Course Of Treatment: Patient with history of chronic EtOH and instability complains of witnessed mechanical fall tonight. Patient fell on the concrete has skin tears to both elbows and laceration above right eye. Patient alert and oriented. Denies any other pain injury or symptoms. Family denies LOC, AMS. Patient denies vision change, N/V, M[place], neck pain, back pain or abdominal pain, chest pain, SOB. Patient ambulatory. No anti-coag. History of dementia. Physical exam:Skin tears bilateral elbows. Normal flexion and extension of bilateral elbows without pain. Small laceration to left elbow. Laceration above right eye. Neuro exam normal. Patient alert and oriented. No pain with palpation of neck, chest wall, abdomen, back. No other trauma noted to mouth, face or head. Full range of motion of jaw. Lower extremities flex and extend bilaterally without any pain. Vital signs within normal limits. Creatinine 1.2. EtOH 218. TSH 10.16. Labs otherwise unremarkable. EKG sinus rhythm. CT maxillofacial negative. CT brain acute on chronic subdural hematoma. Discussed patient with Dr. Barnhart who recommended admission and observation. Will be admitted to hospitalist. 2 sutures left elbow. 10 sutures right eyebrow. - Diagnoses Provider Diagnoses: Laceration, Acute on chronic intracranial subdural hematoma, Skin tear, Fall, ETOH abuse Discharge - Sign-Out/Discharge Documenting (check all that apply): Patient Departure Patient Received Moderate/Deep Sedation with Procedure: No - Discharge Plan Condition: Stable Disposition: ADMITTED TO [facility] - Billing Disposition and Condition Condition: STABLE Disposition: Admitted to [facility]
[2018-04-18 22:20] LABS: Urine Appearance Clear; Urine Bacteria Absent (Absent); Urine Bilirubin Negative (Negative); Urine Blood 1+ (Negative); Urine Color Yellow; Urine Glucose Negative (Negative); Urine Ketones Negative (Negative); Urine Nitrite Negative (Negative); Urine Protein Negative (Negative); Urine Red Blood Cell Absent (Absent); Urine Specific Gravity 1.008 (1.010-1.030); Urine Urobilinogen Negative (Negative); Urine White Blood Cell Absent (Absent)
[2018-04-18] MEDS ORDERED: Thiamine IV* 100 MG, Folic Acid IV* 1 MG, Multiple Vitamin IV ADULT* 10 ML in NS 0.9% 1... IV ONE (23:17)
[2018-04-18] MEDS ORDERED: Folic Acid IV* 1 MG, Multiple Vitamin IV ADULT* 10 ML in NS 0.9% 1000 ML** 1,000 ML IV ONE ×4 (23:36)
[2018-04-18] MEDS ORDERED: Thiamine TAB* 100 MG TAB PO ONE (23:45)
[2018-04-19] MEDS ORDERED: Albuterol 2.5 MG/3 ML NEB.SOL* (0.083%) INH PRN (00:28)
[2018-04-19] MEDS ORDERED: Haloperidol TAB* 0.5 MG PO PRN (00:28)
[2018-04-19] MEDS ORDERED: NS 0.9% 1000 ML** 1,000 ML IV SCH (00:30)
--- NOTE | 2018-04-19 04:39 | HP ---
HISTORY AND PHYSICAL: DATE OF ADMISSION: 04/19/18 PRIMARY CARE PROVIDER: Rolo Jimenez MD HEALTHCARE PROXY: Monique Bridges, the patient's . CODE STATUS: Full. CHIEF COMPLAINT: Mechanical fall and altered mental status. SOURCE OF INFORMATION: History is obtained from interview of patient and interview of medical chart. The patient is a poor historian. HISTORY OF PRESENT ILLNESS: An 87-year-old male with a past medical history of alcohol use disorder, currently drinks 12 beers and whisky daily; history of dementia; chronic encephalopathy with recurrent falls; CKD, stage 3; hypertension; COPD who presented to the emergency room today status post mechanical fall with a blood alcohol level of 200. His family members reported that he tripped and fell on the concrete and tried to brace the fall with his hands, hitting both of his elbows and hands and then he hit his right forehead. They deny loss of consciousness after this event. The patient was ambulatory after the event and because he was bleeding, his family brought him to the emergency room where they thought he might require sutures for a wound above his right eye as well as on his elbows. EMERGENCY ROOM COURSE: In the emergency room, the patient's vitals were 111/89 , heart rate 75 sinus, afebrile, satting 96% on room air. The patient was alert and oriented x1 with no focal neurologic deficits, which per his family is his baseline (this is according to the emergency room staff as the family had the left by the time that I interviewed him). Labs showed mild normocytic anemia, creatinine of 1.2, which is consistent with his baseline. Troponin is flat. TSH is also slightly elevated at 10. Urinalysis was done, which showed 1 + blood, otherwise normal. Tox showed a blood alcohol level of 218. The patient 's last drink was this evening. A CT head was performed, which showed a small right-sided acute on chronic subdural hematoma as well as age-related atrophy and maxillofacial CT showed right supraorbital contusion without fracture. Elbow radiographs bilaterally were taken, which showed no acute fracture on my gross approximation. Chest x-ray showed gastric bubble, but no acute cardiopulmonary disease. An EKG was performed, which showed sinus with first- degree block that was unchanged from prior as well as T wave inversions in 3 with no other acute findings of ischemia. Secondary to his CT head findings as well as the patient's recent fall and elevated blood alcohol level, the ED asked hospitalist team to evaluate this patient for observation status and further monitoring. The ED staff did speak with neurosurgery on-call who reported the patient will need repeat CT head the following day. PAST MEDICAL HISTORY: 1. Alcohol use disorder with at least 12 beers and unknown amount of whisky daily for many years. 2. Dementia with baseline mental status, alert and oriented x1. 3. Recurrent falls. 4. CKD, stage 3. 5. Hypertension. 6. COPD. PAST SURGICAL HISTORY: Unknown. MEDICATIONS: Unverified are, 1. Hydrochlorothiazide 12.5 mg p.o. daily. 2. Multivitamins 1 tab p.o. daily. 3. Polyethylene glycol 17 g p.o. daily p.r.n. 4. Acetaminophen 650 mg p.o. q.4 hours p.r.n. for pain. 5. Albuterol 2.5 mg inhaled q.2 hours p.r.n. for wheezing. 6. Ferrous sulfate 325 mg p.o. daily. 7. Folic acid 1 mg p.o. daily. 8. Haldol 0.5 mg p.o. q.4 hours p.r.n. for agitation. 9. Mometasone 2 puffs inhaled b.i.d. 10. Omeprazole 20 mg p.o. b.i.d. 11. Thiamine 100 mg p.o. daily. 12. Tiotropium 1 cap inhaled daily. ALLERGIES: To PENICILLIN. FAMILY HISTORY: Unknown. SOCIAL HISTORY: He has current alcohol use. He is a former tobacco user and never illicit drug user. The patient lives with his . He has supportive family with a daughter and a son-in-law who is a state director. Unknown former occupation. REVIEW OF SYSTEMS: The patient denies fever, chills, malaise. HEENT: Denies vision changes. Does endorse mild headache. Denies dysphagia. Cardiovascular : Denies chest pain, palpitations. Respiratory: Denies shortness of breath or cough. GI: He denies nausea, vomiting, diarrhea, or abdominal pain. : He dysuria or hematuria. Musculoskeletal: He does endorse bilateral elbow pain as well as right eye pain. Skin: He denies new rashes or lesions aside from new hematomas on bilateral elbows. Neurologic: The patient denies focal weakness. He does endorse chronic bilateral lower extremity neuropathy that is unchanged. Psychiatric: The patient is a poor historian and oriented to himself , but denies anxiety or depression. Denies suicidal ideation or homicidal ideation. PHYSICAL EXAMINATION GENERAL: This is a well-developed, well-nourished, elderly gentleman, who is lying in bed, chatting and pleasant, in no acute distress, ambulating at times around the floor. VITAL SIGNS: At the time of my exam are blood pressure 135/82, heart rate sinus 72, respiratory rate of 12, oxygen saturation 97% on room air. HEENT: He is normocephalic. Does have right orbital sutures in place consistent with prior trauma. His oropharynx is clear. He has dry mucous membranes. LYMPHATIC: He has no supraclavicular or cervical lymphadenopathy. PULMONARY: He is clear to auscultation bilaterally. CARDIAC: He has regular rate and rhythm with no murmurs, rubs, or gallops. GI: His belly is soft, nontender, nondistended and normoactive bowel sounds. MUSCULOSKELETAL: He does have full range of motions of all 4 extremities, although his pain on active range of motion of bilateral extension of elbows. NEURO: The patient is alert and oriented x1. He believes the date is 2003, he is unsure of the month. He does not why he is here. He denies history of alcohol use disorder. He is very pleasant and cooperative with exam. His cranial nerves II through XII are grossly intact and he has no focal neurologic deficits. He does ambulate with a wide-based gait, but without any weakness. He has moderate diminished sensation to bilateral lower extremities that is equal. SKIN: He has bilateral hematomas that are wrapped on elbows as well as hematoma and right supraorbital. LABORATORY DATA: Labs were obtained, which show white blood cell count of 6.6 , hemoglobin of 13.4, hematocrit of 41, platelets of 249. BMP was done, which showed sodium of 135, potassium 3.9, chloride 105, carbon dioxide 20, BUN 27, creatinine 1.2, and glucose 94. Lactic acid was 1.7. LFTs were drawn, which showed AST 17, ALT 11, alkaline phosphatase 57. Ammonia 44. Troponin was 0. TSH was 10.16. Urine was obtained, which showed 1+ blood, but otherwise no remarkable findings. Serum alcohol was done, which was at a level of 218. IMAGING: Bilateral elbow radiographs were done, which showed no gross acute fracture. Maxillofacial CT was done, which showed right supraorbital contusion. Chest x-ray was done, which showed no acute cardiopulmonary disease. Brain CT was done, which showed right acute on chronic subdural hematoma as well as chronic microvascular disease and atrophic changes. An EKG was done, which showed sinus rhythm in the 70s with first-degree block as well as T wave inversions in lead 3 that were unchanged from prior. All films and EKG were reviewed by me personally. ASSESSMENT AND PLAN: This is an 87-year-old male with a past medical history of alcohol use disorder; dementia; recurrent falls; chronic kidney disease, stage 3; hypertension; and chronic obstructive pulmonary disease, who presented to the ER today status post mechanical fall with a blood alcohol level of 200, found to have acute on chronic subdural hematoma and admitted for observation. 1. Acute on chronic subdural hematoma. He has no acute neurologic deficits. Appears to be oriented x1, which is his baseline. --Repeat CT head. --According to ER physicians, Neurosurgery was consulted in the emergency room who recommended just repeat CT head and it showed no changes. --- --Continue neuro checks q.4 hours. 2. Alcohol use disorder with elevated blood alcohol level. The patient does have a history of withdrawal, though uncomplicated from prior hospitalizations. --Start thiamine, folate, WAM protocol with p.r.n. Ativan. We will hydrate with normal saline for 125 mL x1 bag. 3. Dementia. He appears at baseline. We will consult social work. He has a home medication of Haldol 0.5 mg p.o. p.r.n. for agitation. Can send for B12, folate, TSH elevated as per below 4. Recurrent mechanical falls. Pain control with Tylenol will be offered. We will order PT/OT. He will need outpatient followup for suture removal. 5. Hypertension. We will resume home medications of amlodipine. 6. Chronic kidney disease. There is no evidence of acute kidney injury. 7. Elevated TSH. Unknown significance. In this case, we will check T4 on a.m. labs. 8. FEN. It is unrestricted. 9. Code status is full. 10. DVT prophylaxis is subcu heparin. 11. Disposition is observation to the floor. Family was unable to be reached as they have left the emergency room earlier in the evening, although they were aware of his admission and plan was discussed with the emergency room provider. The patient is agreeable to plan and has no further questions. Primary care provider will be contacted during this admission. TIME SPENT: Forty minutes was spent in the execution of this admission and H and P with over half of that spent directly at the bedside of the patient providing direct care. [id number]/[facility] #: [id number] AMBROSE
[2018-04-19] MEDS: Heparin VIAL(*) 5000 UNITS/ML VIAL (FIVE THOUSAND) SUBCUT SCH ×3 (05:06→21:07)
[2018-04-19] MEDS ORDERED: Tiotropium CAP.INH* CAP.INH/18 MCG (USE ORDER SET !) INH ONE (06:59)
[2018-04-19] MEDS: Mometasone/Formoter 200/5 MDI INH SCH ×2 (07:25→19:07)
[2018-04-19] MEDS: Tiotropium CAP.INH* CAP.INH/18 MCG (USE ORDER SET !) INH SCH (07:32)
[2018-04-19 07:35] LABS: Free T4 0.79 ng/dL (0.61-1.12)
--- NOTE | 2018-04-19 07:50 | PN ---
Progress Note - Progress Note Date of Service: 04/19/18 SOAP: Subjective: []Patient s/p fall striking right periorbital area. Seen in ER where CT showed small right mostly chronic SDH with no mass effect. Admitted for observation. Currently awake, alert, c/o rt hand pain Objective: []Sutured laceration over right eye ERT hand moderate swelling laterally Neuro intact Assessment: []Stable Plan: []F/U CT pending Will order X ray of RT hand
[2018-04-19] MEDS ORDERED: Spiriva Inhaler DEVICE* 1 EACH DEVICE INH ONE (09:00)
[2018-04-19] MEDS: Thiamine TAB* 100 MG TAB PO SCH (09:33)
[2018-04-19] MEDS: Folic Acid TAB* 1 MG PO SCH (09:34)
[2018-04-19] MEDS: Pantoprazole TAB * 40 MG TAB PO SCH ×2 (09:34→21:07)
[2018-04-19] MEDS: Ferrous Sulfate TAB* 325 MG PO SCH (09:34)
[2018-04-19] MEDS: Hydrochlorothiazide TAB* 25 MG PO SCH (09:35)
[2018-04-19] MEDS: LORazepam TAB(*) 1 MG PO SCH ×2 (11:21→21:07)
--- NOTE | 2018-04-19 13:31 | PN ---
Subjective Date of Service: 04/19/18 Interval History: Patient is feeling well today, Patient is beginning to feel shaky and is unstady on his feet. Patient denies F/C, N/V, abdominal pain, changes in vision , passing out, CP, SOB, weakness or other pain. Patient has been sneaking hard alcohol and has been buying beer when he goes to the grocery store with her. Patient recently tore his rotator cuff and fell just before admission due to his drinking. Patient's says she is interested in him stopping drinking due to the hazard it poses to his health. Family History: Unchanged from Admission Social History: Unchanged from Admission Past Medical History: Unchanged from Admission Objective Active Medications: Acetaminophen (Tylenol Tab*) 650 mg PO Q4H PRN PRN Reason: PAIN Albuterol (Ventolin 2.5 Mg/3 Ml Neb.Anyi*) 2.5 mg INH Q2H PRN PRN Reason: SOB/WHEEZING Ferrous Sulfate (Ferrous Sulfate Tab*) 325 mg PO DAILY [facility] Last Admin: 04/19/18 09:34 Dose: 325 mg Folic Acid (Folvite Tab*) 1 mg PO DAILY [facility] Last Admin: 04/19/18 09:34 Dose: 1 mg Haloperidol (Haldol Tab*) 0.5 mg PO Q4H PRN PRN Reason: AGITATION Heparin Sodium (Porcine) (Heparin Vial(*)) 5,000 units SUBCUT Q8HR [facility] Last Admin: 04/19/18 05:06 Dose: 5,000 units Hydrochlorothiazide (Hydrodiuril Tab*) 12.5 mg PO DAILY [facility] Last Admin: 04/19/18 09:35 Dose: 12.5 mg Lorazepam (Ativan Tab(*)) 0 - 6 mg PO .PER [facility] PROTOCOL [facility]; Protocol Last Admin: 04/19/18 11:21 Dose: 2 mg Mometasone Furoate/Formoterol Fumar (Dulera 200/5 Mdi*) 2 puff INH BID [facility] Last Admin: 04/19/18 07:25 Dose: 2 puff Pantoprazole Sodium (Protonix Tab*) 40 mg PO BID [facility] Last Admin: 04/19/18 09:34 Dose: 40 mg Thiamine HCl (Vitamin B-1 Tab*) 100 mg PO DAILY [facility] Last Admin: 04/19/18 09:33 Dose: 100 mg Tiotropium [place] (Spiriva Cap.Inh*) 1 cap INH DAILY [facility] Last Admin: 04/19/18 07:32 Dose: Not Given Vital Signs - 8 hr 04/19/18 04/19/18 04/19/18 07:25 08:55 11:14 Temperature 97.6 F 97.1 F Pulse Rate 84 88 102 Respiratory 18 16 20 Rate Blood Pressure 147/72 126/71 110/78 (mmHg) O2 Sat by Pulse 100 100 Oximetry 04/19/18 11:21 Temperature Pulse Rate Respiratory 18 Rate Blood Pressure (mmHg) O2 Sat by Pulse Oximetry Oxygen Devices in Use Now: None Appearance: Patient is an 87yo male who appears stated age and is sitting in the bed in NAD. Eyes: No Scleral Icterus, PERRLA Ears/Nose/Mouth/Throat: NL Teeth, Lips, Gums, Clear Oropharnyx, Mucous Membranes Moist, - Neck: NL Appearance and Movements; NL JVP, Trachea Midline Respiratory: Symmetrical Chest Expansion and Respiratory Effort, Clear to Auscultation Cardiovascular: NL Sounds; No Murmurs; No JVD, RRR, No Edema Abdominal: NL Sounds; No Tenderness; No Distention, No Hepatosplenomegaly Lymphatic: No Cervical Adenopathy Extremities: No Edema, No Clubbing, Cyanosis Skin: No Nodules or Sclerosis, - - Bruises over arms and legs. Laceration on face. Neurological: - - Poor Balance, Tremulous, alert only to self, very unstable on standing. Result Diagrams: 04/18/18 18:32 04/18/18 18:32 Additional Lab and Data: Lab Results Assess/Plan/Problems-Billing Assessment: Patient is an 87yo male with a PMH for Dementia, alcoholism, CKD, HTN, COPD, who is admitted for falls and acute on chronic subdural hematoma which is stable but he is now withdrawing from alcohol. Patient is not capable of making his own medical decisions and his and surrogate decision maker is interested in alcohol detox and abstinence. - Patient Problems (1) Subdural hematoma Current Visit: Yes Status: Acute Code(s): S06.5X9A - TRAUM SUBDR HEM W LOC OF UNSP DURATION, INIT SNOMED Code(s): 532296260 Comment: - Small, stable on repeat CT brain - Appreciate Neurosurgery consult - Monitor PRN, no indication for surgery. (2) Alcoholism /alcohol abuse Current Visit: No Status: Acute Code(s): F10.20 - ALCOHOL DEPENDENCE, UNCOMPLICATED SNOMED Code(s): 3781412 Comment: - SW consult ordered - is interested in patient being abstinent from alcohol and he lacks capacity to understand the health ramifications at this stage in his dementia - Patient is beginning to withdraw from alcohol - Start WA protocol, give vitamins. (3) Altered mental status Current Visit: No Status: Acute Code(s): R41.82 - ALTERED MENTAL STATUS, UNSPECIFIED SNOMED Code(s): 584080016 Comment: - Likely alcohol withdrawal on top of underlying dementia (4) COPD (chronic obstructive pulmonary disease) Current Visit: No Status: Acute Code(s): J44.9 - CHRONIC OBSTRUCTIVE PULMONARY DISEASE, UNSPECIFIED SNOMED Code(s): 23019312 Comment: - No signs of exacerbation - Continue Dulera, Spiriva, and Albuterol PRN. (5) DVT prophylaxis Current Visit: No Status: Acute Code(s): FJE3818 - SNOMED Code(s): 087891960 Comment: - SCDs in setting of SDH
[2018-04-19] MEDS: Haloperidol INJ IV/IM* 5 MG/ML AMP IV SLOW PU PRN (19:35)
[2018-04-19] MEDS ORDERED: Ondansetron INJ* 2 MG/ML VIAL IV PRN (20:50)
[2018-04-20] MEDS: Multivitamins/Minerals TAB PO SCH ×2 (00:59→10:55)
[2018-04-20] MEDS: LORazepam INJ* 2 MG/ML 1 ML VIAL IM SCH ×6 (01:10→19:07)
[2018-04-20] MEDS: Heparin VIAL(*) 5000 UNITS/ML VIAL (FIVE THOUSAND) SUBCUT SCH ×3 (05:00→20:58)
[2018-04-20 07:47] LABS: ABS Basophils 0 10^3/ul (0-0.2); ABS Eosinophils 0 10^3/ul (0-0.6); ABS Lymphocytes 0.7 10^3/ul (1.0-4.8); ABS Monocytes 0.9 10^3/ul (0-0.8); ABS Neutrophils 7.5 10^3/ul (1.5-7.7); ABS Nucleated RBC 0 10^3/ul; Eosinophil % 0.2 %; Hematocrit 43 % (42-52); Hemoglobin 14.3 g/dl (14.0-18.0); Lymphocyte % 7.6 %; Mean Corpuscular HGB Conc 33 g/dl (31-36); Mean Corpuscular Hemoglobin 32 pg (27-31); Mean Corpuscular Volume 96 fL (80-94); Mean Platelet Volume 7.6 fL (7.4-10.4); Nucleated Red Blood Cells % 0; Platelet Count 232 10^3/ul (150-450); Red Blood Count 4.49 10^6/ul (4.00-5.40); Red Cell Distribution Width 14 % (10.5-15)
[2018-04-20 07:53] LABS: Albumin 3.9 g/dL (3.2-5.2); Calcium 9.5 mg/dL (8.6-10.3); Potassium 3.6 mmol/L (3.5-5.0); Total Bilirubin 0.7 mg/dL (0.2-1.0)
[2018-04-20 07:59] LABS: Albumin/Globulin Ratio 1.4 (1-3); BUN/Creatinine Ratio 20.8 (8-20); EGFR African American 84.2 (>60); EGFR Non-African American 69.6 (>60); Globulin 2.7 g/dL (2-4); Total Protein 6.6 g/dL (6.4-8.9)
[2018-04-20] MEDS: Tiotropium CAP.INH* CAP.INH/18 MCG (USE ORDER SET !) INH SCH (08:34)
[2018-04-20] MEDS: Mometasone/Formoter 200/5 MDI INH SCH ×2 (08:34→19:23)
[2018-04-20] MEDS ORDERED: cloNIDine 0.2 MG PATCH* 0.2 MG/24 HR 7 DAY PATCH TRANSDERM SCH (09:00)
[2018-04-20] MEDS: Thiamine TAB* 100 MG TAB PO SCH (10:55)
[2018-04-20] MEDS: Folic Acid TAB* 1 MG PO SCH (10:55)
[2018-04-20] MEDS: Hydrochlorothiazide TAB* 25 MG PO SCH ×2 (10:55→11:50)
[2018-04-20] MEDS: Pantoprazole TAB * 40 MG TAB PO SCH ×2 (10:55→20:51)
[2018-04-20] MEDS: Ferrous Sulfate TAB* 325 MG PO SCH (10:55)
[2018-04-20] MEDS: Metoprolol Tartrate IV* 1 MG/ML 5 ML VIAL IV PRN ×2 (12:29→20:58)
[2018-04-20] MEDS ORDERED: Metoprolol Tartrate IV* 1 MG/ML 5 ML VIAL IV ONE (13:00)
[2018-04-20] MEDS ORDERED: Acetaminophen SUPP* 325 MG SUPP ONE (13:13)
[2018-04-20] MEDS ORDERED: Acetaminophen SUPP* 650 MG SUPP ONE (13:14)
[2018-04-20] MEDS: Acetaminophen SUPP* 650 MG SUPP PR PRN ×2 (13:16→19:07)
--- NOTE | 2018-04-20 14:32 | PN ---
Subjective Date of Service: 04/20/18 Interval History: Per RN, patient was scoring for WAM all night and recevied multiple doses of ativan Q2H, today patient is lethargic and agitated when awake. Unable to obtain ROS 2/2 AMS. Family History: Unchanged from Admission Social History: Unchanged from Admission Past Medical History: Unchanged from Admission Objective Active Medications: Acetaminophen (Tylenol Tab*) 650 mg PO Q4H PRN PRN Reason: PAIN Acetaminophen (Tylenol Supp*) 650 mg MD Q4H PRN PRN Reason: FEVER Last Admin: 04/20/18 13:16 Dose: 650 mg Albuterol (Ventolin 2.5 Mg/3 Ml Neb.Anyi*) 2.5 mg INH Q2H PRN PRN Reason: SOB/WHEEZING Clonidine HCl (Ydftwogz-Dor-8 0.2 Mg Patch*) 0.2 mg TRANSDERM Q7D [facility] Last Admin: 04/20/18 11:06 Dose: 0.2 mg Ferrous Sulfate (Ferrous Sulfate Tab*) 325 mg PO DAILY [facility] Last Admin: 04/20/18 10:55 Dose: Not Given Folic Acid (Folvite Tab*) 1 mg PO DAILY [facility] Last Admin: 04/20/18 10:55 Dose: Not Given Haloperidol (Haldol Tab*) 0.5 mg PO Q4H PRN PRN Reason: AGITATION Haloperidol Lactate (Haldol Inj Iv/Im*) 5 mg IV SLOW PU Q6H PRN PRN Reason: AGITATION Last Admin: 04/19/18 19:35 Dose: 5 mg Heparin Sodium (Porcine) (Heparin Vial(*)) 5,000 units SUBCUT Q8HR [facility] Last Admin: 04/20/18 12:28 Dose: 5,000 units Hydrochlorothiazide (Hydrodiuril Tab*) 12.5 mg PO DAILY [facility] Last Admin: 04/20/18 11:50 Dose: 12.5 mg Lorazepam (Ativan Inj*) 0 - 6 mg IM .PER [facility] PROTOCOL [facility]; Protocol Last Admin: 04/20/18 06:39 Dose: 2 mg Metoprolol Tartrate (Lopressor Iv*) 5 mg IV Q6H PRN PRN Reason: Blood Pressure or tachycardia Last Admin: 04/20/18 12:29 Dose: 5 mg Mometasone Furoate/Formoterol Fumar (Dulera 200/5 Mdi*) 2 puff INH BID [facility] Last Admin: 04/20/18 08:34 Dose: Not Given Multivitamins/Minerals (Theragran/Minerals Tab*) 1 tab PO DAILY [facility] Last Admin: 04/20/18 10:55 Dose: Not Given Ondansetron HCl (Zofran Inj*) 4 mg IV Q4H PRN PRN Reason: NAUSEA Pantoprazole Sodium (Protonix Tab*) 40 mg PO BID [facility] Last Admin: 04/20/18 10:55 Dose: Not Given Thiamine HCl (Vitamin B-1 Tab*) 100 mg PO DAILY [facility] Last Admin: 04/20/18 10:55 Dose: Not Given Tiotropium [place] (Spiriva Cap.Inh*) 1 cap INH DAILY [facility] Last Admin: 04/20/18 08:34 Dose: Not Given Vital Signs - 8 hr 04/20/18 04/20/18 04/20/18 06:35 06:39 08:50 Temperature 97.6 F Pulse Rate 107 105 Respiratory 20 20 20 Rate Blood Pressure 146/91 133/81 (mmHg) O2 Sat by Pulse 91 97 Oximetry 04/20/18 04/20/18 04/20/18 09:19 11:47 13:05 Temperature 99.6 F 100.2 F Pulse Rate 121 92 Respiratory 16 24 24 Rate Blood Pressure 149/91 141/88 (mmHg) O2 Sat by Pulse 97 99 Oximetry Oxygen Devices in Use Now: None Appearance: alert, NAD Eyes: No Scleral Icterus, PERRLA Ears/Nose/Mouth/Throat: NL Teeth, Lips, Gums, Clear Oropharnyx, Mucous Membranes Moist Neck: NL Appearance and Movements; NL JVP, Trachea Midline Respiratory: Symmetrical Chest Expansion and Respiratory Effort, - - no wheeze, diminished bases, productive cough Cardiovascular: NL Sounds; No Murmurs; No JVD, - Abdominal: NL Sounds; No Tenderness; No Distention Extremities: No Edema, No Clubbing, Cyanosis Skin: No Rash or Ulcers, No Nodules or Sclerosis Neurological: - - confused at baseline with periods of agitation and delerium Nutrition: Taking PO's Result Diagrams: 04/20/18 07:19 04/20/18 07:19 Additional Lab and Data: Lab Results Assess/Plan/Problems-Billing Assessment: Patient is an 87yo male with a PMH for Dementia, alcoholism, CKD, HTN, COPD, who is admitted for falls and acute on chronic subdural hematoma which is stable but he is now withdrawing from alcohol. Patient is not capable of making his own medical decisions and his and surrogate decision maker is interested in alcohol detox and abstinence. - Patient Problems (1) Subdural hematoma Code(s): S06.5X9A - TRAUM SUBDR HEM W LOC OF UNSP DURATION, INIT SNOMED Code(s ): 023344891 Comment: - Small, stable on repeat CT brain - Appreciate Neurosurgery consult, no intervention required at this time (2) Alcohol withdrawal delirium Code(s): F10.231 - ALCOHOL DEPENDENCE WITH WITHDRAWAL DELIRIUM SNOMED Code(s) : 3453693 Comment: - Per records, patient has gone through inpatient withdrawal in the past - Concern that his AMS is also related to hospitalization and advancing dementia - Discussed with RN to hold ativan for now until patient more awake - Control tachycardia and HTN 2/2 with IV lopressor and continue to monitor - If patient is persistently lethargic, will re-image to ensure subdural is not evolving (3) Altered mental status Code(s): R41.82 - ALTERED MENTAL STATUS, UNSPECIFIED SNOMED Code(s): 352253425 Comment: - Likely alcohol withdrawal on top of underlying dementia, less likely the subdural, as last CT scan showed no advancement (4) COPD (chronic obstructive pulmonary disease) Code(s): J44.9 - CHRONIC OBSTRUCTIVE PULMONARY DISEASE, UNSPECIFIED SNOMED Code(s): 36257658 Comment: - No signs of exacerbation - Continue Dulera, Spiriva, and Albuterol PRN (5) DVT prophylaxis Code(s): NCI4851 - SNOMED Code(s): 633239989 Comment: - SCDs only in setting of SDH Status and Disposition: Inpatient, DC plan for home with VNS when medically stable. SW following.
[2018-04-21] MEDS: LORazepam INJ* 2 MG/ML 1 ML VIAL IM SCH ×2 (03:14→23:09)
[2018-04-21] MEDS: Heparin VIAL(*) 5000 UNITS/ML VIAL (FIVE THOUSAND) SUBCUT SCH ×3 (05:26→22:12)
[2018-04-21] MEDS: Mometasone/Formoter 200/5 MDI INH SCH ×2 (07:44→19:50)
[2018-04-21] MEDS: Tiotropium CAP.INH* CAP.INH/18 MCG (USE ORDER SET !) INH SCH (07:45)
--- NOTE | 2018-04-21 13:56 | PN ---
Subjective Date of Service: 04/21/18 Interval History: Patient seen, unable to obtain ROS 2/2 MAS. Chart reviewed, case discussed with RN. Family History: Unchanged from Admission Social History: Unchanged from Admission Past Medical History: Unchanged from Admission Objective Active Medications: Acetaminophen (Tylenol Tab*) 650 mg PO Q4H PRN PRN Reason: PAIN Acetaminophen (Tylenol Supp*) 650 mg MD Q4H PRN PRN Reason: FEVER Last Admin: 04/20/18 19:07 Dose: 650 mg Albuterol (Ventolin 2.5 Mg/3 Ml Neb.Anyi*) 2.5 mg INH Q2H PRN PRN Reason: SOB/WHEEZING Clonidine HCl (Tjkkogiq-Hez-0 0.2 Mg Patch*) 0.2 mg TRANSDERM Q7D [facility] Last Admin: 04/20/18 11:06 Dose: 0.2 mg Ferrous Sulfate (Ferrous Sulfate Tab*) 325 mg PO DAILY [facility] Last Admin: 04/20/18 10:55 Dose: Not Given Folic Acid (Folvite Tab*) 1 mg PO DAILY [facility] Last Admin: 04/20/18 10:55 Dose: Not Given Haloperidol (Haldol Tab*) 0.5 mg PO Q4H PRN PRN Reason: AGITATION Haloperidol Lactate (Haldol Inj Iv/Im*) 5 mg IV SLOW PU Q6H PRN PRN Reason: AGITATION Last Admin: 04/19/18 19:35 Dose: 5 mg Heparin Sodium (Porcine) (Heparin Vial(*)) 5,000 units SUBCUT Q8HR [facility] Last Admin: 04/21/18 05:26 Dose: 5,000 units Hydrochlorothiazide (Hydrodiuril Tab*) 12.5 mg PO DAILY [facility] Last Admin: 04/20/18 11:50 Dose: 12.5 mg Sodium Chloride (Ns 0.9% 1000 Ml) 1,000 mls @ 50 mls/hr IV PER RATE [facility] Lorazepam (Ativan Inj*) 0 - 6 mg IM .PER [facility] PROTOCOL [facility]; Protocol Last Admin: 04/21/18 03:14 Dose: 2 mg Metoprolol Tartrate (Lopressor Iv*) 5 mg IV Q6H PRN PRN Reason: Blood Pressure or tachycardia Last Admin: 04/20/18 20:58 Dose: 5 mg Mometasone Furoate/Formoterol Fumar (Dulera 200/5 Mdi*) 2 puff INH BID [facility] Last Admin: 04/21/18 07:44 Dose: Not Given Multivitamins/Minerals (Theragran/Minerals Tab*) 1 tab PO DAILY [facility] Last Admin: 04/20/18 10:55 Dose: Not Given Ondansetron HCl (Zofran Inj*) 4 mg IV Q4H PRN PRN Reason: NAUSEA Pantoprazole Sodium (Protonix Tab*) 40 mg PO BID [facility] Last Admin: 04/20/18 20:51 Dose: Not Given Thiamine HCl (Vitamin B-1 Tab*) 100 mg PO DAILY [facility] Last Admin: 04/20/18 10:55 Dose: Not Given Tiotropium [place] (Spiriva Cap.Inh*) 1 cap INH DAILY [facility] Last Admin: 04/21/18 07:45 Dose: Not Given Vital Signs - 8 hr 04/21/18 04/21/18 04/21/18 07:00 07:26 09:00 Temperature 98.0 F 98.0 F Pulse Rate 69 66 Respiratory 22 22 Rate Blood Pressure 98/69 105/59 (mmHg) O2 Sat by Pulse 94 93 Oximetry 04/21/18 10:59 Temperature 97.0 F Pulse Rate 79 Respiratory 16 Rate Blood Pressure 100/54 (mmHg) O2 Sat by Pulse 88 Oximetry Oxygen Devices in Use Now: None Appearance: lethargic, periods of agitation Eyes: No Scleral Icterus, PERRLA Ears/Nose/Mouth/Throat: NL Teeth, Lips, Gums, Mucous Membranes Moist Neck: NL Appearance and Movements; NL JVP, Trachea Midline Respiratory: Symmetrical Chest Expansion and Respiratory Effort, Clear to Auscultation Cardiovascular: NL Sounds; No Murmurs; No JVD, RRR, No Edema Abdominal: NL Sounds; No Tenderness; No Distention Extremities: No Edema Skin: No Rash or Ulcers, No Nodules or Sclerosis Neurological: Alert and Oriented x 3, NL Muscle Strength and Tone Nutrition: Taking PO's Result Diagrams: 04/20/18 07:19 04/20/18 07:19 Additional Lab and Data: Lab Results Diagnostic Imaging: Patient Name: MORGAN BRITTON Medical Record#: [id number] Ordering Physician: Jaz Monson NP Acct.#: [id number] : 1930 Age: 87 Sex: M Location: [address] [place] [address] MEDICAL Exam Date: 04/21/18 0909 ADM Status: ADM IN Order Information: CT BRAIN WO Accession Number: [id number] CPT: 95237 HISTORY: decreased LOC COMPARISONS: April 19, 2018 TECHNIQUE: Multiple contiguous axial CT scans were obtained of the head without intravenous contrast. FINDINGS: HEMORRHAGE/INFARCT: There is no parenchymal hemorrhage or acute infarct.. MASSES/SHIFT: There is no mass or shift. EXTRA-AXIAL SPACES: Again noted is an extra axial fluid collection along the right frontoparietal convexity consistent with subacute subdural hematoma. When measured at comparable levels, this is stable from the previous examination. SULCI AND VENTRICLES: The sulci and ventricles are normal in size and position for the patient's stated age. CEREBRUM: There are no focal parenchymal abnormalities. BRAINSTEM: There are no focal parenchymal abnormalities. CEREBELLUM: There are no focal parenchymal abnormalities. VESSELS: The vessels are grossly normal. PARANASAL SINUSES: The paranasal sinuses are clear. ORBITS: The orbits are unremarkable. BONES AND SOFT TISSUE: No bone or soft tissue abnormalities are noted. OTHER: None IMPRESSION: STABLE RIGHT FRONTOPARIETAL SUBDURAL HEMATOMA. Assess/Plan/Problems-Billing Assessment: Patient is an 87yo male with a PMH for Dementia, alcoholism, CKD, HTN, COPD, who is admitted for falls and acute on chronic subdural hematoma which is stable but he is now withdrawing from alcohol. Patient is not capable of making his own medical decisions and his and surrogate decision maker is interested in alcohol detox and abstinence. - Patient Problems (1) Subdural hematoma Code(s): S06.5X9A - TRAUM SUBDR HEM W LOC OF UNSP DURATION, INIT SNOMED Code(s ): 096147755 Comment: - CT repeated today 2/2 persistent lethargy, no changes noted - Appreciate Neurosurgery consult, no intervention required at this time (2) Alcohol withdrawal delirium Code(s): F10.231 - ALCOHOL DEPENDENCE WITH WITHDRAWAL DELIRIUM SNOMED Code(s) : 2271532 Comment: - Per records, patient has gone through inpatient withdrawal in the past - Concern that his AMS is also related to hospitalization and advancing dementia - On WAM protocol but concern that ativan is contributing to lethargy as well - Control tachycardia and HTN 2/2 with IV lopressor PRN and continue to monitor (3) Altered mental status Code(s): R41.82 - ALTERED MENTAL STATUS, UNSPECIFIED SNOMED Code(s): 586073216 Comment: - Likely alcohol withdrawal on top of underlying dementia, the subdural bleed has not changed/evolved (4) COPD (chronic obstructive pulmonary disease) Code(s): J44.9 - CHRONIC OBSTRUCTIVE PULMONARY DISEASE, UNSPECIFIED SNOMED Code(s): 86132413 Comment: - No signs of exacerbation - Continue Dulera, Spiriva, and Albuterol PRN (5) DVT prophylaxis Code(s): SMS0700 - SNOMED Code(s): 357491362 Comment: - SCDs only in setting of SDH Status and Disposition: Inpatient, at this point, patient remains too unstable to discharge. If his AMS does not start to improve, will consult neurology for additional recs, although I believe the combination of alcohol withdrawal and dementia continues to make assessment difficult.
[2018-04-21] MEDS: Ferrous Sulfate TAB* 325 MG PO SCH (15:13)
[2018-04-21] MEDS: Folic Acid TAB* 1 MG PO SCH (15:13)
[2018-04-21] MEDS: Hydrochlorothiazide TAB* 25 MG PO SCH (15:14)
[2018-04-21] MEDS: Thiamine TAB* 100 MG TAB PO SCH (15:14)
[2018-04-21] MEDS: Multivitamins/Minerals TAB PO SCH (15:14)
[2018-04-21] MEDS: Pantoprazole TAB * 40 MG TAB PO SCH ×2 (15:14→22:12)
[2018-04-21] MEDS: NS 0.9% 1000 ML** 1,000 ML IV SCH (16:19)
[2018-04-22] MEDS: Pantoprazole TAB * 40 MG TAB PO SCH ×3 (00:44→22:01)
[2018-04-22] MEDS ORDERED: NS 0.9% 1000 ML** 1,000 ML IV ONE (05:13)
[2018-04-22] MEDS: Heparin VIAL(*) 5000 UNITS/ML VIAL (FIVE THOUSAND) SUBCUT SCH ×3 (05:19→22:09)
[2018-04-22] MEDS ORDERED: NS 0.9% 500 ML* 500 ML IV ONE (06:25)
[2018-04-22] MEDS: Mometasone/Formoter 200/5 MDI INH SCH ×2 (07:49→19:48)
[2018-04-22] MEDS: Folic Acid TAB* 1 MG PO SCH (07:49)
[2018-04-22] MEDS: Tiotropium CAP.INH* CAP.INH/18 MCG (USE ORDER SET !) INH SCH (07:49)
[2018-04-22] MEDS: Multivitamins/Minerals TAB PO SCH ×2 (08:04→08:06)
[2018-04-22] MEDS: Ferrous Sulfate TAB* 325 MG PO SCH (08:04)
[2018-04-22] MEDS: Thiamine TAB* 100 MG TAB PO SCH (08:05)
[2018-04-22] MEDS: Haloperidol INJ IV/IM* 5 MG/ML AMP IV SLOW PU PRN (17:42)
--- NOTE | 2018-04-22 18:25 | PN ---
Subjective Date of Service: 04/22/18 Interval History: Patient seen and examined. Seems to be responding better today. Remains confused , but is more alert and can articulate some needs. Unable to obtain reliable ROS 2/2 dementia/delerium. Family History: Unchanged from Admission Social History: Unchanged from Admission Past Medical History: Unchanged from Admission Objective Active Medications: Acetaminophen (Tylenol Tab*) 650 mg PO Q4H PRN PRN Reason: PAIN Acetaminophen (Tylenol Supp*) 650 mg [place] Q4H PRN PRN Reason: FEVER Last Admin: 04/20/18 19:07 Dose: 650 mg Albuterol (Ventolin 2.5 Mg/3 Ml Neb.Anyi*) 2.5 mg INH Q2H PRN PRN Reason: SOB/WHEEZING Ferrous Sulfate (Ferrous Sulfate Tab*) 325 mg PO DAILY [facility] Last Admin: 04/22/18 08:04 Dose: Not Given Folic Acid (Folvite Tab*) 1 mg PO DAILY [facility] Last Admin: 04/22/18 07:49 Dose: 1 mg Haloperidol (Haldol Tab*) 0.5 mg PO Q4H PRN PRN Reason: AGITATION Haloperidol Lactate (Haldol Inj Iv/Im*) 5 mg IV SLOW PU Q6H PRN PRN Reason: AGITATION Last Admin: 04/22/18 17:42 Dose: 5 mg Heparin Sodium (Porcine) (Heparin Vial(*)) 5,000 units SUBCUT Q8HR [facility] Last Admin: 04/22/18 14:43 Dose: 5,000 units Sodium Chloride (Ns 0.9% 1000 Ml) 1,000 mls @ 50 mls/hr IV PER RATE [facility] Last Admin: 04/21/18 16:19 Dose: 50 mls/hr Lorazepam (Ativan Inj*) 0 - 6 mg IM .PER [facility] PROTOCOL [facility]; Protocol Last Admin: 04/21/18 23:09 Dose: 2 mg Metoprolol Tartrate (Lopressor Iv*) 5 mg IV Q6H PRN PRN Reason: Blood Pressure or tachycardia Last Admin: 04/20/18 20:58 Dose: 5 mg Mometasone Furoate/Formoterol Fumar (Dulera 200/5 Mdi*) 2 puff INH BID [facility] Last Admin: 04/22/18 07:49 Dose: Not Given Multivitamins/Minerals (Theragran/Minerals Tab*) 1 tab PO DAILY [facility] Last Admin: 04/22/18 08:06 Dose: Not Given Ondansetron HCl (Zofran Inj*) 4 mg IV Q4H PRN PRN Reason: NAUSEA Pantoprazole Sodium (Protonix Tab*) 40 mg PO BID [facility] Last Admin: 04/22/18 07:49 Dose: 40 mg Thiamine HCl (Vitamin B-1 Tab*) 100 mg PO DAILY [facility] Last Admin: 04/22/18 08:05 Dose: Not Given Tiotropium [place] (Spiriva Cap.Inh*) 1 cap INH DAILY [facility] Last Admin: 04/22/18 07:49 Dose: Not Given Vital Signs - 8 hr 04/22/18 04/22/18 11:08 16:20 Temperature 98.1 F Pulse Rate 87 100 Respiratory 18 20 Rate Blood Pressure 112/60 106/56 (mmHg) O2 Sat by Pulse 98 99 Oximetry Oxygen Devices in Use Now: None Appearance: alert, NAD Eyes: No Scleral Icterus, PERRLA Ears/Nose/Mouth/Throat: NL Teeth, Lips, Gums Neck: NL Appearance and Movements; NL JVP, Trachea Midline Respiratory: Symmetrical Chest Expansion and Respiratory Effort, Clear to Auscultation Cardiovascular: NL Sounds; No Murmurs; No JVD, RRR, No Edema Abdominal: NL Sounds; No Tenderness; No Distention Extremities: No Edema, No Clubbing, Cyanosis Skin: No Rash or Ulcers Neurological: - - confused but improved from yesterday Nutrition: Taking PO's Result Diagrams: 04/20/18 07:19 04/20/18 07:19 Additional Lab and Data: Lab Results Diagnostic Imaging: Patient Name: MORGAN BRITTON Medical Record#: [id number] Ordering Physician: Jaz Monson NP Acct.#: [id number] : 1930 Age: 87 Sex: M Location: [address] [place] [address] - MEDICAL Exam Date: 04/21/18908 ADM Status: ADM IN Order Information: CT BRAIN WO Accession Number: [id number] CPT: 44493 HISTORY: decreased LOC COMPARISONS: April 19, 2018 TECHNIQUE: Multiple contiguous axial CT scans were obtained of the head without intravenous contrast. FINDINGS: HEMORRHAGE/INFARCT: There is no parenchymal hemorrhage or acute infarct.. MASSES/SHIFT: There is no mass or shift. EXTRA-AXIAL SPACES: Again noted is an extra axial fluid collection along the right frontoparietal convexity consistent with subacute subdural hematoma. When measured at comparable levels, this is stable from the previous examination. SULCI AND VENTRICLES: The sulci and ventricles are normal in size and position for the patient's stated age. CEREBRUM: There are no focal parenchymal abnormalities. BRAINSTEM: There are no focal parenchymal abnormalities. CEREBELLUM: There are no focal parenchymal abnormalities. VESSELS: The vessels are grossly normal. PARANASAL SINUSES: The paranasal sinuses are clear. ORBITS: The orbits are unremarkable. BONES AND SOFT TISSUE: No bone or soft tissue abnormalities are noted. OTHER: None IMPRESSION: STABLE RIGHT FRONTOPARIETAL SUBDURAL HEMATOMA. Assess/Plan/Problems-Billing Assessment: Patient is an 87yo male with a PMH for Dementia, alcoholism, CKD, HTN, COPD, who is admitted for falls and acute on chronic subdural hematoma which is stable but he is now withdrawing from alcohol. Patient is not capable of making his own medical decisions and his and surrogate decision maker is interested in alcohol detox and abstinence. - Patient Problems (1) Subdural hematoma Code(s): S06.5X9A - TRAUM SUBDR HEM W LOC OF UNSP DURATION, INIT SNOMED Code(s ): 855526706 Comment: - CT repeated yesterdat 2/2 persistent lethargy, no changes noted and mentation is improved today - Appreciate Neurosurgery consult, no intervention required at this time (2) Alcohol withdrawal delirium Code(s): F10.231 - ALCOHOL DEPENDENCE WITH WITHDRAWAL DELIRIUM SNOMED Code(s) : 9249140 Comment: - Not scoring on WAM protocol today - BP and HR controlled and mentation is better (3) Knee pain, acute Code(s): M25.569 - PAIN IN UNSPECIFIED KNEE SNOMED Code(s): 29220618 Comment: - Per RN, patient has some mild edema to left knee and bruising which is likely from his initial fall - Xray reveals no fracture but does have calcified cartilage - Supportive care, tylenol PRN, warm packs (4) Altered mental status Code(s): R41.82 - ALTERED MENTAL STATUS, UNSPECIFIED SNOMED Code(s): 051268351 Comment: - Likely alcohol withdrawal with dementia but almost back to baseline today (5) COPD (chronic obstructive pulmonary disease) Code(s): J44.9 - CHRONIC OBSTRUCTIVE PULMONARY DISEASE, UNSPECIFIED SNOMED Code(s): 37258457 Comment: - No signs of exacerbation - Continue Dulera, Spiriva, and Albuterol PRN (6) DVT prophylaxis Code(s): WRW5650 - SNOMED Code(s): 566443633 Comment: - SCDs only in setting of SDH Status and Disposition: Inpatient, status is improving. DC planning home with VNS versus STR.
[2018-04-23] MEDS: Haloperidol INJ IV/IM* 5 MG/ML AMP IV SLOW PU PRN ×2 (02:42→19:45)
[2018-04-23] MEDS: Heparin VIAL(*) 5000 UNITS/ML VIAL (FIVE THOUSAND) SUBCUT SCH ×3 (06:17→22:50)
[2018-04-23] MEDS: Tiotropium CAP.INH* CAP.INH/18 MCG (USE ORDER SET !) INH SCH (08:08)
[2018-04-23] MEDS: Mometasone/Formoter 200/5 MDI INH SCH ×2 (08:10→19:47)
[2018-04-23] MEDS: Ferrous Sulfate TAB* 325 MG PO SCH (08:49)
[2018-04-23] MEDS: Thiamine TAB* 100 MG TAB PO SCH (08:49)
[2018-04-23] MEDS: Pantoprazole TAB * 40 MG TAB PO SCH ×2 (08:49→22:51)
[2018-04-23] MEDS: Multivitamins/Minerals TAB PO SCH (08:49)
[2018-04-23] MEDS: Folic Acid TAB* 1 MG PO SCH (08:49)
--- NOTE | 2018-04-23 09:58 | PN ---
Subjective Date of Service: 04/23/18 Interval History: Mr. Britton seen and examined in room. He is OOB to chair, dozing. He is easily arousable. He denies pain, difficulty breathing, chest pain, nausea. He states he is tired. Not able to contribute much more to the history. Family History: Unchanged from Admission Social History: Unchanged from Admission Past Medical History: Unchanged from Admission Objective Active Medications: Acetaminophen (Tylenol Tab*) 650 mg PO Q4H PRN PRN Reason: PAIN Acetaminophen (Tylenol Supp*) 650 mg [place] Q4H PRN PRN Reason: FEVER Last Admin: 04/20/18 19:07 Dose: 650 mg Albuterol (Ventolin 2.5 Mg/3 Ml Neb.Anyi*) 2.5 mg INH Q2H PRN PRN Reason: SOB/WHEEZING Ferrous Sulfate (Ferrous Sulfate Tab*) 325 mg PO DAILY [facility] Last Admin: 04/23/18 08:49 Dose: 325 mg Folic Acid (Folvite Tab*) 1 mg PO DAILY [facility] Last Admin: 04/23/18 08:49 Dose: 1 mg Haloperidol (Haldol Tab*) 0.5 mg PO Q4H PRN PRN Reason: AGITATION Haloperidol Lactate (Haldol Inj Iv/Im*) 5 mg IV SLOW PU Q6H PRN PRN Reason: AGITATION Last Admin: 04/23/18 02:42 Dose: 5 mg Heparin Sodium (Porcine) (Heparin Vial(*)) 5,000 units SUBCUT Q8HR [facility] Last Admin: 04/23/18 06:17 Dose: 5,000 units Sodium Chloride (Ns 0.9% 1000 Ml) 1,000 mls @ 50 mls/hr IV PER RATE [facility] Last Admin: 04/21/18 16:19 Dose: 50 mls/hr Lorazepam (Ativan Inj*) 0 - 6 mg IM [facility]; Protocol Last Admin: 04/21/18 23:09 Dose: 2 mg Metoprolol Tartrate (Lopressor Iv*) 5 mg IV Q6H PRN PRN Reason: Blood Pressure or tachycardia Last Admin: 04/20/18 20:58 Dose: 5 mg Mometasone Furoate/Formoterol Fumar (Dulera 200/5 Mdi*) 2 puff INH BID [facility] Last Admin: 04/23/18 08:10 Dose: 2 puff Multivitamins/Minerals (Theragran/Minerals Tab*) 1 tab PO DAILY [facility] Last Admin: 04/23/18 08:49 Dose: 1 tab Ondansetron HCl (Zofran Inj*) 4 mg IV Q4H PRN PRN Reason: NAUSEA Pantoprazole Sodium (Protonix Tab*) 40 mg PO BID [facility] Last Admin: 04/23/18 08:49 Dose: 40 mg Thiamine HCl (Vitamin B-1 Tab*) 100 mg PO DAILY [facility] Last Admin: 04/23/18 08:49 Dose: 100 mg Tiotropium [place] (Spiriva Cap.Inh*) 1 cap INH DAILY [facility] Last Admin: 04/23/18 08:08 Dose: 1 cap Vital Signs - 8 hr 04/23/18 04/23/18 04/23/18 03:00 07:26 08:00 Temperature 98.5 F 97.7 F Pulse Rate 57 113 Respiratory 20 16 16 Rate Blood Pressure 105/42 143/80 (mmHg) O2 Sat by Pulse 61 80 Oximetry Oxygen Devices in Use Now: None Appearance: Elderly male, OOB to chair, in NAD Eyes: No Scleral Icterus, PERRLA Ears/Nose/Mouth/Throat: Clear Oropharnyx, Mucous Membranes Moist Neck: NL Appearance and Movements; NL JVP Respiratory: Symmetrical Chest Expansion and Respiratory Effort, Clear to Auscultation Cardiovascular: NL Sounds; No Murmurs; No JVD, RRR, No Edema Abdominal: NL Sounds; No Tenderness; No Distention Extremities: No Clubbing, Cyanosis Skin: - - right forehead laceration with sutures above right eyebrow with surrounding ecchymosis Neurological: - - Alert, able to follow commands, some confusion Lines/Tubes/Other Access: Clean, Dry and Intact Peripheral IV Nutrition: Taking PO's Result Diagrams: 04/20/18 07:19 04/20/18 07:19 Additional Lab and Data: Lab Results Diagnostic Imaging: Patient Name: MORGAN BRITTON Medical Record#: [id number] Ordering Physician: Jaz Monson NP Acct.#: [id number] : 1930 Age: 87 Sex: M Location: [address] [place] [address] - MEDICAL Exam Date: 04/21/18 09 ADM Status: ADM IN Order Information: CT BRAIN WO Accession Number: [id number] CPT: 20550 HISTORY: decreased LOC COMPARISONS: April 19, 2018 TECHNIQUE: Multiple contiguous axial CT scans were obtained of the head without intravenous contrast. FINDINGS: HEMORRHAGE/INFARCT: There is no parenchymal hemorrhage or acute infarct.. MASSES/SHIFT: There is no mass or shift. EXTRA-AXIAL SPACES: Again noted is an extra axial fluid collection along the right frontoparietal convexity consistent with subacute subdural hematoma. When measured at comparable levels, this is stable from the previous examination. SULCI AND VENTRICLES: The sulci and ventricles are normal in size and position for the patient's stated age. CEREBRUM: There are no focal parenchymal abnormalities. BRAINSTEM: There are no focal parenchymal abnormalities. CEREBELLUM: There are no focal parenchymal abnormalities. VESSELS: The vessels are grossly normal. PARANASAL SINUSES: The paranasal sinuses are clear. ORBITS: The orbits are unremarkable. BONES AND SOFT TISSUE: No bone or soft tissue abnormalities are noted. OTHER: None IMPRESSION: STABLE RIGHT FRONTOPARIETAL SUBDURAL HEMATOMA. Assess/Plan/Problems-Billing Assessment: Patient is an 87yo male with a PMH for Dementia, alcoholism, CKD, HTN, COPD, who is admitted for falls and acute on chronic subdural hematoma which is stable but he is now withdrawing from alcohol. Patient is not capable of making his own medical decisions and his and surrogate decision maker is interested in alcohol detox and abstinence. - Patient Problems (1) Subdural hematoma Code(s): S06.5X9A - TRAUM SUBDR HEM W LOC OF UNSP DURATION, INIT Comment: - CT repeated 04/21, no changes noted and mentation appears stable - Appreciate Neurosurgery consult, no intervention required at this time (2) Alcohol withdrawal delirium Code(s): F10.231 - ALCOHOL DEPENDENCE WITH WITHDRAWAL DELIRIUM Comment: - WAM score 2 to 4 - BP and HR controlled and mentation is better (3) Knee pain, acute Code(s): M25.569 - PAIN IN UNSPECIFIED KNEE Comment: - Per RN, patient has some mild edema to left knee and bruising which is likely from his initial fall - Xray reveals no fracture but does have calcified cartilage - Supportive care, tylenol PRN, warm packs (4) Altered mental status Code(s): R41.82 - ALTERED MENTAL STATUS, UNSPECIFIED Comment: - Likely alcohol withdrawal with dementia but returning to baseline (5) COPD (chronic obstructive pulmonary disease) Code(s): J44.9 - CHRONIC OBSTRUCTIVE PULMONARY DISEASE, UNSPECIFIED Comment: - No signs of exacerbation - Continue Dulera, Spiriva, and Albuterol PRN (6) DVT prophylaxis Comment: - SCDs only in setting of SDH Status and Disposition: Inpatient, status is improving. DC planning home with VNS versus STR. manager audio to discuss with . Attending: Raza Rodas
[2018-04-23] MEDS ORDERED: Senna TAB PO PRN (11:32)
[2018-04-23] MEDS ORDERED: Docusate CAP* 100 MG PO PRN (11:32)
[2018-04-23] MEDS ORDERED: Magnesium Hydroxide LIQ* 30 ML UDC PO PRN (11:32)
[2018-04-23] MEDS: NS 0.9% 1000 ML** 1,000 ML IV SCH (14:08)
[2018-04-23] MEDS ORDERED: LORazepam INJ* 2 MG/ML 1 ML VIAL IV PUSH PRN (21:13)
[2018-04-24] MEDS: Heparin VIAL(*) 5000 UNITS/ML VIAL (FIVE THOUSAND) SUBCUT SCH ×3 (05:44→22:03)
[2018-04-24] MEDS: Tiotropium CAP.INH* CAP.INH/18 MCG (USE ORDER SET !) INH SCH (10:28)
[2018-04-24] MEDS: Mometasone/Formoter 200/5 MDI INH SCH ×2 (10:28→19:15)
[2018-04-24] MEDS: Multivitamins/Minerals TAB PO SCH (11:27)
[2018-04-24] MEDS: Folic Acid TAB* 1 MG PO SCH (11:27)
[2018-04-24] MEDS: Thiamine TAB* 100 MG TAB PO SCH (11:27)
[2018-04-24] MEDS: Pantoprazole TAB * 40 MG TAB PO SCH ×2 (11:27→19:56)
[2018-04-24] MEDS: Ferrous Sulfate TAB* 325 MG PO SCH (11:28)
--- NOTE | 2018-04-24 12:02 | PN ---
Subjective Date of Service: 04/24/18 Interval History: Mr. Britton seen and examined at bedside. is in the room, accompanying patient. It is her desire for him to be referred to [facility] prior to return home; she is still awaiting to hear about bed offers. Mr. Britton is seen ambulating with assist and walker in the room. He denies any pain or discomfort. He thinks we are at the store. He is otherwise pleasant and cooperative. Family History: Unchanged from Admission Social History: Unchanged from Admission Past Medical History: Unchanged from Admission Objective Active Medications: Acetaminophen (Tylenol Tab*) 650 mg PO Q4H PRN PRN Reason: PAIN Acetaminophen (Tylenol Supp*) 650 mg LA Q4H PRN PRN Reason: FEVER Last Admin: 04/20/18 19:07 Dose: 650 mg Albuterol (Ventolin 2.5 Mg/3 Ml Neb.Anyi*) 2.5 mg INH Q2H PRN PRN Reason: SOB/WHEEZING Docusate Sodium (Colace Cap*) 100 mg PO BID PRN PRN Reason: CONSTIPATION Last Admin: 04/23/18 14:05 Dose: 100 mg Ferrous Sulfate (Ferrous Sulfate Tab*) 325 mg PO DAILY [facility] Last Admin: 04/24/18 11:28 Dose: Not Given Folic Acid (Folvite Tab*) 1 mg PO DAILY [facility] Last Admin: 04/24/18 11:27 Dose: Not Given Haloperidol (Haldol Tab*) 0.5 mg PO Q4H PRN PRN Reason: AGITATION Haloperidol Lactate (Haldol Inj Iv/Im*) 5 mg IV SLOW PU Q6H PRN PRN Reason: AGITATION Last Admin: 04/23/18 19:45 Dose: 5 mg Heparin Sodium (Porcine) (Heparin Vial(*)) 5,000 units SUBCUT Q8HR [facility] Last Admin: 04/24/18 05:44 Dose: 5,000 units Sodium Chloride (Ns 0.9% 1000 Ml) 1,000 mls @ 50 mls/hr IV PER RATE [facility] Last Admin: 04/23/18 14:08 Dose: 50 mls/hr Lorazepam (Ativan Inj*) 0 - 6 mg IM .PER [facility] PROTOCOL [facility]; Protocol Last Admin: 04/21/18 23:09 Dose: 2 mg Lorazepam (Ativan Inj*) 1 mg IV PUSH Q6H PRN PRN Reason: AGITATION Last Admin: 04/24/18 05:51 Dose: 1 mg Magnesium Hydroxide (Milk Of Magnesia Liq*) 30 ml PO Q4H PRN PRN Reason: CONSTIPATION Metoprolol Tartrate (Lopressor Iv*) 5 mg IV Q6H PRN PRN Reason: Blood Pressure or tachycardia Last Admin: 04/20/18 20:58 Dose: 5 mg Mometasone Furoate/Formoterol Fumar (Dulera 200/5 Mdi*) 2 puff INH BID [facility] Last Admin: 04/24/18 10:28 Dose: 2 puff Multivitamins/Minerals (Theragran/Minerals Tab*) 1 tab PO DAILY [facility] Last Admin: 04/24/18 11:27 Dose: Not Given Ondansetron HCl (Zofran Inj*) 4 mg IV Q4H PRN PRN Reason: NAUSEA Pantoprazole Sodium (Protonix Tab*) 40 mg PO BID [facility] Last Admin: 04/24/18 11:27 Dose: Not Given Senna (Senokot Tab*) 1 tab PO BEDTIME PRN PRN Reason: CONSTIPATION Thiamine HCl (Vitamin B-1 Tab*) 100 mg PO DAILY [facility] Last Admin: 04/24/18 11:27 Dose: Not Given Tiotropium [place] (Spiriva Cap.Inh*) 1 cap INH DAILY [facility] Last Admin: 04/24/18 10:28 Dose: 1 cap Vital Signs - 8 hr 04/24/18 04/24/18 04/24/18 05:51 07:35 08:00 Temperature Pulse Rate Respiratory 18 18 18 Rate Blood Pressure (mmHg) O2 Sat by Pulse Oximetry 04/24/18 04/24/18 09:41 10:32 Temperature 97.5 F Pulse Rate 29 93 Respiratory 18 16 Rate Blood Pressure 119/56 (mmHg) O2 Sat by Pulse 94 93 Oximetry Oxygen Devices in Use Now: None Appearance: Elderly male, OOB to chair, NAD Eyes: No Scleral Icterus, PERRLA Ears/Nose/Mouth/Throat: Clear Oropharnyx, Mucous Membranes Moist Neck: NL Appearance and Movements; NL JVP Respiratory: Symmetrical Chest Expansion and Respiratory Effort, Clear to Auscultation Cardiovascular: NL Sounds; No Murmurs; No JVD, RRR Abdominal: NL Sounds; No Tenderness; No Distention Extremities: No Edema, No Clubbing, Cyanosis Skin: - - laceration above right eyebrow and laceration to left elbow - both with sutures in place Neurological: NL Muscle Strength and Tone, - - Alert, oriented to self, disoriented to time/place. Impulsive. Lines/Tubes/Other Access: Clean, Dry and Intact Peripheral IV Nutrition: Taking PO's Result Diagrams: 04/20/18 07:19 04/20/18 07:19 Additional Lab and Data: Lab Results Diagnostic Imaging: Patient Name: MORGAN BRITTON Medical Record#: [id number] Ordering Physician: Jaz Monson NP Acct.#: [id number] : 1930 Age: 87 Sex: M Location: [address] [place] [address] - MEDICAL Exam Date: 04/21/18908 ADM Status: ADM IN Order Information: CT BRAIN WO Accession Number: [id number] CPT: 71844 HISTORY: decreased LOC COMPARISONS: April 19, 2018 TECHNIQUE: Multiple contiguous axial CT scans were obtained of the head without intravenous contrast. FINDINGS: HEMORRHAGE/INFARCT: There is no parenchymal hemorrhage or acute infarct.. MASSES/SHIFT: There is no mass or shift. EXTRA-AXIAL SPACES: Again noted is an extra axial fluid collection along the right frontoparietal convexity consistent with subacute subdural hematoma. When measured at comparable levels, this is stable from the previous examination. SULCI AND VENTRICLES: The sulci and ventricles are normal in size and position for the patient's stated age. CEREBRUM: There are no focal parenchymal abnormalities. BRAINSTEM: There are no focal parenchymal abnormalities. CEREBELLUM: There are no focal parenchymal abnormalities. VESSELS: The vessels are grossly normal. PARANASAL SINUSES: The paranasal sinuses are clear. ORBITS: The orbits are unremarkable. BONES AND SOFT TISSUE: No bone or soft tissue abnormalities are noted. OTHER: None IMPRESSION: STABLE RIGHT FRONTOPARIETAL SUBDURAL HEMATOMA. Assess/Plan/Problems-Billing Assessment: Patient is an 87yo male with a PMH for Dementia, alcoholism, CKD, HTN, COPD, who is admitted for falls and acute on chronic subdural hematoma which is stable but he is now withdrawing from alcohol. Patient is not capable of making his own medical decisions and his and surrogate decision maker is interested in alcohol detox and abstinence. - Patient Problems (1) Subdural hematoma Code(s): S06.5X9A - TRAUM SUBDR HEM W LOC OF UNSP DURATION, INIT Comment: - CT repeated 04/21, no changes noted and mentation appears stable - Appreciate Neurosurgery consult, no intervention required at this time (2) Alcohol withdrawal delirium Code(s): F10.231 - ALCOHOL DEPENDENCE WITH WITHDRAWAL DELIRIUM Comment: - WAM monitoring now q8h, still occasionally scoring, which may be due to agitation/impulsive behavior from AMS - BP and HR controlled and mentation is better (3) Laceration Comment: With right forehead laceration with sutures and left elbow laceration Forehead sutures due for removal this weekend Left elbow sutures (#2) due for removal 10-14 days after placement, which will be around 04/28/18. (4) Knee pain, acute Code(s): M25.569 - PAIN IN UNSPECIFIED KNEE Comment: - Per RN, patient has some mild edema to left knee and bruising which is likely from his initial fall - Xray reveals no fracture but does have calcified cartilage - Supportive care, tylenol PRN, warm packs (5) Altered mental status Code(s): R41.82 - ALTERED MENTAL STATUS, UNSPECIFIED Comment: - Likely alcohol withdrawal with dementia but returning to baseline (6) COPD (chronic obstructive pulmonary disease) Code(s): J44.9 - CHRONIC OBSTRUCTIVE PULMONARY DISEASE, UNSPECIFIED Comment: - No signs of exacerbation - Continue Dulera, Spiriva, and Albuterol PRN (7) DVT prophylaxis Comment: - SCDs only in setting of SDH Status and Disposition: Inpatient, status is improving. DC planning home, awaiting bed offer for [facility]. Attending: Raza Rodas
[2018-04-24] MEDS: Haloperidol INJ IV/IM* 5 MG/ML AMP IV SLOW PU PRN (19:11)
[2018-04-24] MEDS: Haloperidol INJ IV/IM* 5 MG/ML AMP IM PRN (19:48)
[2018-04-25] MEDS: Acetaminophen TAB* 325 MG PO PRN (03:06)
[2018-04-25] MEDS: Heparin VIAL(*) 5000 UNITS/ML VIAL (FIVE THOUSAND) SUBCUT SCH ×3 (05:54→20:46)
[2018-04-25] MEDS: Mometasone/Formoter 200/5 MDI INH SCH ×2 (07:55→19:45)
[2018-04-25] MEDS: Tiotropium CAP.INH* CAP.INH/18 MCG (USE ORDER SET !) INH SCH (07:55)
[2018-04-25] MEDS: Pantoprazole TAB * 40 MG TAB PO SCH ×2 (08:19→20:46)
[2018-04-25] MEDS: Folic Acid TAB* 1 MG PO SCH (08:20)
[2018-04-25] MEDS: Thiamine TAB* 100 MG TAB PO SCH (08:20)
[2018-04-25] MEDS: Ferrous Sulfate TAB* 325 MG PO SCH (08:21)
[2018-04-25] MEDS: Multivitamins/Minerals TAB PO SCH (08:23)
[2018-04-25] MEDS: LORazepam TAB(*) 1 MG PO PRN ×2 (13:57→20:54)
--- NOTE | 2018-04-25 15:15 | PN ---
Subjective Date of Service: 04/25/18 Interval History: No overnight events. Patient pleasantly confused. C/O left foot pain. States he has had gout in the past. Not able to answer most questions appropriately. Family History: Unchanged from Admission Social History: Unchanged from Admission Past Medical History: Unchanged from Admission Objective Active Medications: Acetaminophen (Tylenol Tab*) 650 mg PO Q4H PRN PRN Reason: PAIN Last Admin: 04/25/18 03:06 Dose: 650 mg Acetaminophen (Tylenol Supp*) 650 mg LA Q4H PRN PRN Reason: FEVER Last Admin: 04/20/18 19:07 Dose: 650 mg Albuterol (Ventolin 2.5 Mg/3 Ml Neb.Anyi*) 2.5 mg INH Q2H PRN PRN Reason: SOB/WHEEZING Colchicine (Colcrys*) 1.2 mg PO ONCE ONE Stop: 04/25/18 16:01 Docusate Sodium (Colace Cap*) 100 mg PO BID PRN PRN Reason: CONSTIPATION Last Admin: 04/23/18 14:05 Dose: 100 mg Ferrous Sulfate (Ferrous Sulfate Tab*) 325 mg PO DAILY [facility] Last Admin: 04/25/18 08:21 Dose: 325 mg Folic Acid (Folvite Tab*) 1 mg PO DAILY [facility] Last Admin: 04/25/18 08:20 Dose: 1 mg Haloperidol (Haldol Tab*) 0.5 mg PO Q4H PRN PRN Reason: AGITATION Haloperidol Lactate (Haldol Inj Iv/Im*) 5 mg IM Q6H PRN PRN Reason: AGITATION Last Admin: 04/24/18 19:48 Dose: 5 mg Heparin Sodium (Porcine) (Heparin Vial(*)) 5,000 units SUBCUT Q8HR [facility] Last Admin: 04/25/18 13:34 Dose: 5,000 units Lorazepam (Ativan Inj*) 0 - 6 mg IM .PER [facility] PROTOCOL [facility]; Protocol Last Admin: 04/21/18 23:09 Dose: 2 mg Lorazepam (Ativan Tab(*)) 1 mg PO Q6H PRN PRN Reason: AGITATION Last Admin: 04/25/18 13:57 Dose: 1 mg Magnesium Hydroxide (Milk Of Magnesia Liq*) 30 ml PO Q4H PRN PRN Reason: CONSTIPATION Metoprolol Tartrate (Lopressor Iv*) 5 mg IV Q6H PRN PRN Reason: Blood Pressure or tachycardia Last Admin: 04/20/18 20:58 Dose: 5 mg Mometasone Furoate/Formoterol Fumar (Dulera 200/5 Mdi*) 2 puff INH BID [facility] Last Admin: 04/25/18 07:55 Dose: 2 puff Multivitamins/Minerals (Theragran/Minerals Tab*) 1 tab PO DAILY [facility] Last Admin: 04/25/18 08:23 Dose: Not Given Ondansetron HCl (Zofran Inj*) 4 mg IV Q4H PRN PRN Reason: NAUSEA Pantoprazole Sodium (Protonix Tab*) 40 mg PO BID [facility] Last Admin: 04/25/18 08:19 Dose: 40 mg Senna (Senokot Tab*) 1 tab PO BEDTIME PRN PRN Reason: CONSTIPATION Thiamine HCl (Vitamin B-1 Tab*) 100 mg PO DAILY [facility] Last Admin: 04/25/18 08:20 Dose: 100 mg Tiotropium [place] (Spiriva Cap.Inh*) 1 cap INH DAILY [facility] Last Admin: 04/25/18 07:55 Dose: 1 cap Vital Signs - 8 hr 04/25/18 04/25/18 04/25/18 07:35 07:59 10:32 Temperature 97.6 F Pulse Rate 92 90 Respiratory 18 16 18 Rate Blood Pressure 118/62 (mmHg) O2 Sat by Pulse 97 95 Oximetry 04/25/18 04/25/18 11:49 13:57 Temperature 98.2 F Pulse Rate 101 Respiratory 16 20 Rate Blood Pressure 110/66 (mmHg) O2 Sat by Pulse 95 Oximetry Oxygen Devices in Use Now: None Ears/Nose/Mouth/Throat: Mucous Membranes Moist Respiratory: Symmetrical Chest Expansion and Respiratory Effort, Clear to Auscultation Cardiovascular: RRR, - - soft systolic murmur present Abdominal: NL Sounds; No Tenderness; No Distention, No Hepatosplenomegaly Extremities: No Edema, - - left medial ankle with more prominent bony protrusion , with erythema and tenderness to palpation Neurological: - - AAOx1 - oriented to self only. No gross deficits. Pleasantly confused Result Diagrams: 04/20/18 07:19 04/20/18 07:19 Additional Lab and Data: Lab Results Diagnostic Imaging: Patient Name: MORGAN BRITTON Medical Record#: [id number] Ordering Physician: Jaz Monson NP Acct.#: [id number] : 1930 Age: 87 Sex: M Location: [address] [place] [address] - MEDICAL Exam Date: 04/21/18908 ADM Status: ADM IN Order Information: CT BRAIN WO Accession Number: [id number] CPT: 07376 HISTORY: decreased LOC COMPARISONS: April 19, 2018 TECHNIQUE: Multiple contiguous axial CT scans were obtained of the head without intravenous contrast. FINDINGS: HEMORRHAGE/INFARCT: There is no parenchymal hemorrhage or acute infarct.. MASSES/SHIFT: There is no mass or shift. EXTRA-AXIAL SPACES: Again noted is an extra axial fluid collection along the right frontoparietal convexity consistent with subacute subdural hematoma. When measured at comparable levels, this is stable from the previous examination. SULCI AND VENTRICLES: The sulci and ventricles are normal in size and position for the patient's stated age. CEREBRUM: There are no focal parenchymal abnormalities. BRAINSTEM: There are no focal parenchymal abnormalities. CEREBELLUM: There are no focal parenchymal abnormalities. VESSELS: The vessels are grossly normal. PARANASAL SINUSES: The paranasal sinuses are clear. ORBITS: The orbits are unremarkable. BONES AND SOFT TISSUE: No bone or soft tissue abnormalities are noted. OTHER: None IMPRESSION: STABLE RIGHT FRONTOPARIETAL SUBDURAL HEMATOMA. Assess/Plan/Problems-Billing Assessment: Patient is an 87yo male with a PMHx of dementia, alcohol abuse who presented from home c/o falls found to have an acute on chronic subdural hematoma. Patient lacks capacity and plan is for [facility] for him. - Patient Problems (1) Foot pain, left Current Visit: Yes Status: Acute Code(s): M79.672 - PAIN IN LEFT FOOT SNOMED Code(s): 71833866 Comment: A. C/O left foot pain Appears to be gout Will check xray and start colchicine (2) Knee pain, acute Current Visit: Yes Status: Acute Code(s): M25.569 - PAIN IN UNSPECIFIED KNEE SNOMED Code(s): 73897614 Comment: A. Xray: negative No longer c/o pain Monitor (3) Laceration Current Visit: Yes Status: Acute Code(s): RVH5274 - SNOMED Code(s): 308812164 Comment: A. Sutures removed on 3/3 from forehead without issues Left elbow sutures due for removal 10-14 days after placement, which will be around 04/28/18. (4) Subdural hematoma Current Visit: Yes Status: Acute Code(s): S06.5X9A - TRAUM SUBDR HEM W LOC OF UNSP DURATION, INIT SNOMED Code(s): 020155785 Comment: - CT repeated 04/21, no changes noted and mentation appears stable - Appreciate Neurosurgery consult, no intervention required at this time (5) Alcohol withdrawal delirium Current Visit: No Status: Acute Priority: High Code(s): F10.231 - ALCOHOL DEPENDENCE WITH WITHDRAWAL DELIRIUM SNOMED Code(s): 1095356 Comment: A. No longer scoring on WAM. Will d/c Is pleasantly confused today. (6) Alcoholism /alcohol abuse Current Visit: No Status: Acute Code(s): F10.20 - ALCOHOL DEPENDENCE, UNCOMPLICATED SNOMED Code(s): 8808644 Comment: - SW consult ordered - is interested in patient being abstinent from alcohol and he lacks capacity to understand the health ramifications at this stage in his dementia Patient to go to [facility]/Rehab He lacks capacity (7) Altered mental status Current Visit: No Status: Acute Code(s): R41.82 - ALTERED MENTAL STATUS, UNSPECIFIED SNOMED Code(s): 249358699 Comment: A. Patient pulled out IVs and has had issues with agitation during his hospitalization Currently calm He lacks capacity. Will keep IV out for now. IM haldol prn May benefit from seroquel at bedtime if he continues to have agitation in evening. Only required haldol last evening on 04/24. (8) DVT prophylaxis Current Visit: No Status: Acute Code(s): WOV3550 - SNOMED Code(s): 172179263 Comment: - SCDs only in setting of SDH (9) COPD (chronic obstructive pulmonary disease) Current Visit: No Status: Chronic Code(s): J44.9 - CHRONIC OBSTRUCTIVE PULMONARY DISEASE, UNSPECIFIED SNOMED Code(s): 64124742 Comment: - No signs of exacerbation - Continue Dulera, Spiriva, and Albuterol PRN Status and Disposition: Inpatient, status is improving. awaiting bed offer for [facility].
[2018-04-25] MEDS ORDERED: Colchicine* 0.6 MG TAB PO ONE (16:00)
[2018-04-25] MEDS: Haloperidol INJ IV/IM* 5 MG/ML AMP IM PRN (17:22)
[2018-04-25] MEDS ORDERED: Haloperidol TAB* 1 MG PO PRN (17:30)
[2018-04-26] MEDS: Haloperidol INJ IV/IM* 5 MG/ML AMP IM PRN (02:03)
[2018-04-26] MEDS: Heparin VIAL(*) 5000 UNITS/ML VIAL (FIVE THOUSAND) SUBCUT SCH ×3 (05:48→20:55)
[2018-04-26] MEDS: Tiotropium CAP.INH* CAP.INH/18 MCG (USE ORDER SET !) INH SCH (08:13)
[2018-04-26] MEDS: Mometasone/Formoter 200/5 MDI INH SCH ×2 (08:13→19:26)
[2018-04-26] MEDS: Colchicine* 0.6 MG TAB PO SCH (09:18)
[2018-04-26] MEDS: Pantoprazole TAB * 40 MG TAB PO SCH ×2 (09:18→20:55)
[2018-04-26] MEDS: Folic Acid TAB* 1 MG PO SCH (09:18)
[2018-04-26] MEDS: Ferrous Sulfate TAB* 325 MG PO SCH (09:18)
[2018-04-26] MEDS: Multivitamins/Minerals TAB PO SCH (09:18)
[2018-04-26] MEDS: Thiamine TAB* 100 MG TAB PO SCH (09:18)
--- NOTE | 2018-04-26 18:04 | PN ---
Subjective Date of Service: 04/26/18 Interval History: Patient seen and examined at bedside. Denies fever, chills, shortness of breath , chest discomfort, N/V/D. Mrs. Britton reports that he continues to have a cough with greenish discharge from his right eye. He also has a history of sinus infections and she is concerned that he may have another sinus infection. Family History: Unchanged from Admission Social History: Unchanged from Admission Past Medical History: Unchanged from Admission Objective Active Medications: Acetaminophen (Tylenol Tab*) 650 mg PO Q4H PRN Reason: PAIN Acetaminophen (Tylenol Supp*) 650 mg [place] Q4H PRN Reason: FEVER Albuterol (Ventolin 2.5 Mg/3 Ml Neb.Anyi*) 2.5 mg INH Q2H PRN Reason: SOB/ WHEEZING Colchicine (Colcrys*) 0.6 mg PO DAILY [facility] Stop: 04/28/18 08:59 Docusate Sodium (Colace Cap*) 100 mg PO BID PRN Reason: CONSTIPATION Ferrous Sulfate (Ferrous Sulfate Tab*) 325 mg PO DAILY [facility] Folic Acid (Folvite Tab*) 1 mg PO DAILY [facility] Haloperidol (Haldol Tab*) 0.5 mg PO Q4H PRN Reason: AGITATION Haloperidol Lactate (Haldol Inj Iv/Im*) 5 mg IM Q6H PRN Reason: AGITATION Heparin Sodium (Porcine) (Heparin Vial(*)) 5,000 units SUBCUT Q8HR [facility] Lorazepam (Ativan Inj*) 0 - [address] [facility] PROTOCOL [facility]; Protocol Lorazepam (Ativan Tab(*)) 1 mg PO Q6H PRN Reason: AGITATION Magnesium Hydroxide (Milk Of Magnesia Liq*) 30 ml PO Q4H PRN Reason: CONSTIPATION Metoprolol Tartrate (Lopressor Iv*) 5 mg IV Q6H PRN Reason: Blood Pressure or tachycardia Mometasone Furoate/Formoterol Fumar (Dulera 200/5 Mdi*) 2 puff INH BID [facility] Multivitamins/Minerals (Theragran/Minerals Tab*) 1 tab PO DAILY [facility] Ondansetron HCl (Zofran Inj*) 4 mg IV Q4H PRN Reason: NAUSEA Pantoprazole Sodium (Protonix Tab*) 40 mg PO BID [facility] Senna (Senokot Tab*) 1 tab PO BEDTIME PRN Reason: CONSTIPATION Thiamine HCl (Vitamin B-1 Tab*) 100 mg PO DAILY [facility] Tiotropium [place] (Spiriva Cap.Inh*) 1 cap INH DAILY [facility] Vital Signs - 8 hr 04/26/18 04/26/18 04/26/18 11:09 15:42 16:20 Temperature 97.9 F 97.6 F Pulse Rate 28 125 95 Respiratory 18 18 Rate Blood Pressure 104/63 130/55 (mmHg) O2 Sat by Pulse 96 94 Oximetry Oxygen Devices in Use Now: None Appearance: NAD, sitting up in a chair Eyes: - - Mild green crusting to the right eye Ears/Nose/Mouth/Throat: Mucous Membranes Moist, - - White postnasal drip noted Respiratory: Symmetrical Chest Expansion and Respiratory Effort, Clear to Auscultation - , there was initially rhonchi in the upper air way that cleared after a cough Cardiovascular: RRR Abdominal: NL Sounds; No Tenderness; No Distention Extremities: No Edema Skin: - - Right 2nd toe with erythema, healing lac above right eye Neurological: - - Alert and Oriented to Person Nutrition: Taking PO's Result Diagrams: 04/20/18 07:19 04/20/18 07:19 Additional Lab and Data: Lab Results Diagnostic Imaging: Patient Name: MORGAN BRITTON Medical Record#: [id number] Ordering Physician: Jaz Monson NP Acct.#: [id number] : 1930 Age: 87 Sex: M Location: [address] [place] [address] MEDICAL Exam Date: 04/21/18908 ADM Status: ADM IN Order Information: CT BRAIN WO Accession Number: [id number] CPT: 62182 HISTORY: decreased LOC COMPARISONS: April 19, 2018 TECHNIQUE: Multiple contiguous axial CT scans were obtained of the head without intravenous contrast. FINDINGS: HEMORRHAGE/INFARCT: There is no parenchymal hemorrhage or acute infarct.. MASSES/SHIFT: There is no mass or shift. EXTRA-AXIAL SPACES: Again noted is an extra axial fluid collection along the right frontoparietal convexity consistent with subacute subdural hematoma. When measured at comparable levels, this is stable from the previous examination. SULCI AND VENTRICLES: The sulci and ventricles are normal in size and position for the patient's stated age. CEREBRUM: There are no focal parenchymal abnormalities. BRAINSTEM: There are no focal parenchymal abnormalities. CEREBELLUM: There are no focal parenchymal abnormalities. VESSELS: The vessels are grossly normal. PARANASAL SINUSES: The paranasal sinuses are clear. ORBITS: The orbits are unremarkable. BONES AND SOFT TISSUE: No bone or soft tissue abnormalities are noted. OTHER: None IMPRESSION: STABLE RIGHT FRONTOPARIETAL SUBDURAL HEMATOMA. Assess/Plan/Problems-Billing Assessment: Mr. Britton is an 87yo male with a PMHx of dementia, alcohol abuse, CKD stage 3, HTN, and COPD who presented from home c/o falls found to have an acute on chronic subdural hematoma. Patient lacks capacity and plan is for [facility] for him. - Patient Problems (1) URI (upper respiratory infection) Code(s): J06.9 - ACUTE UPPER RESPIRATORY INFECTION, UNSPECIFIED SNOMED Code(s) : 31080172 Comment: - Green crusting to right eye and postnasal drip - No sinus tenderness - Afebrile and no leukocytosis - Suspect this is viral - No antibiotics at this time, continue supportive care (encourage fluids and warm compresses) (2) Foot pain, left Code(s): M79.672 - PAIN IN LEFT FOOT SNOMED Code(s): 43181665 Comment: - No complaints today - Suspect this is gout - Continue colchicine (3) Knee pain, acute Code(s): M25.569 - PAIN IN UNSPECIFIED KNEE SNOMED Code(s): 38409680 Comment: - Resolved - Negative xray (4) Laceration Code(s): YHE1946 - SNOMED Code(s): 933580096 Comment: - Sutures removed on 3/3 from forehead without issues - Left elbow sutures due for removal 10-14 days after placement, which will be around 04/28/18. (5) Subdural hematoma Code(s): S06.5X9A - TRAUM SUBDR HEM W LOC OF UNSP DURATION, INIT SNOMED Code(s ): 026793088 Comment: - Head CT repeated 04/21, no changes noted and mentation appears stable - Appreciate Neurosurgery consult, no intervention required at this time - Continue neuro checks (6) Alcohol withdrawal delirium Code(s): F10.231 - ALCOHOL DEPENDENCE WITH WITHDRAWAL DELIRIUM SNOMED Code(s) : 6212741 Comment: - BUCK DC'd - Pleasantly confused today (7) Alcoholism /alcohol abuse Code(s): F10.20 - ALCOHOL DEPENDENCE, UNCOMPLICATED SNOMED Code(s): 1128249 Comment: - SW consult ordered - is interested in patient being abstinent from alcohol and he lacks capacity to understand the health ramifications at this stage in his dementia - Patient to go to [facility], He lacks capacity (8) Altered mental status Code(s): R41.82 - ALTERED MENTAL STATUS, UNSPECIFIED SNOMED Code(s): 161166788 Comment: - Suspect secondary to dementia and alcohol withdrawal - Continue haldol prn - Required haldol once daily, may benefit from seroquel at bedtime if he continues to have agitation in evening (9) COPD (chronic obstructive pulmonary disease) Code(s): J44.9 - CHRONIC OBSTRUCTIVE PULMONARY DISEASE, UNSPECIFIED SNOMED Code(s): 41727137 Comment: - No signs of exacerbation - Continue Dulera, Spiriva, and Albuterol PRN (10) DVT prophylaxis Code(s): LEI0473 - SNOMED Code(s): 547853593 Comment: - SCDs only in setting of SDH (11) Full code status Code(s): Z78.9 - OTHER SPECIFIED HEALTH STATUS SNOMED Code(s): 026720482 Status and Disposition: Inpatient, status is improving. Awaiting bed offer for [facility].
[2018-04-27] MEDS: LORazepam TAB(*) 1 MG PO PRN (01:49)
[2018-04-27] MEDS: Heparin VIAL(*) 5000 UNITS/ML VIAL (FIVE THOUSAND) SUBCUT SCH ×3 (06:01→21:30)
[2018-04-27] MEDS: Thiamine TAB* 100 MG TAB PO SCH (08:21)
[2018-04-27] MEDS: Colchicine* 0.6 MG TAB PO SCH (08:21)
[2018-04-27] MEDS: Ferrous Sulfate TAB* 325 MG PO SCH (08:21)
[2018-04-27] MEDS: Folic Acid TAB* 1 MG PO SCH ×2 (08:21→08:29)
[2018-04-27] MEDS: Pantoprazole TAB * 40 MG TAB PO SCH ×3 (08:21→21:30)
[2018-04-27] MEDS: Multivitamins/Minerals TAB PO SCH (08:21)
[2018-04-27] MEDS: Mometasone/Formoter 200/5 MDI INH SCH ×2 (09:24→20:09)
[2018-04-27] MEDS: Tiotropium CAP.INH* CAP.INH/18 MCG (USE ORDER SET !) INH SCH (09:25)
--- NOTE | 2018-04-27 13:32 | PN ---
Subjective Date of Service: 04/27/18 Interval History: Patient seen and examined at bedside. Denies fever, chills, shortness of breath , chest discomfort, N/V/D. Family History: Unchanged from Admission Social History: Unchanged from Admission Past Medical History: Unchanged from Admission Objective Active Medications: Acetaminophen (Tylenol Tab*) 650 mg PO Q4H PRN Reason: PAIN Acetaminophen (Tylenol Supp*) 650 mg TN Q4H PRN Reason: FEVER Albuterol (Ventolin 2.5 Mg/3 Ml Neb.Anyi*) 2.5 mg INH Q2H PRN Reason: SOB/ WHEEZING Colchicine (Colcrys*) 0.6 mg PO DAILY [facility] Stop: 04/28/18 08:59 Docusate Sodium (Colace Cap*) 100 mg PO BID PRN Reason: CONSTIPATION Ferrous Sulfate (Ferrous Sulfate Tab*) 325 mg PO DAILY [facility] Folic Acid (Folvite Tab*) 1 mg PO DAILY [facility] Haloperidol (Haldol Tab*) 0.5 mg PO Q4H PRN Reason: AGITATION Haloperidol Lactate (Haldol Inj Iv/Im*) 5 mg IM Q6H PRN Reason: AGITATION Heparin Sodium (Porcine) (Heparin Vial(*)) 5,000 units SUBCUT Q8HR [facility] Lorazepam (Ativan Tab(*)) 1 mg PO Q6H PRN Reason: AGITATION Magnesium Hydroxide (Milk Of Magnjeimy Liq*) 30 ml PO Q4H PRN Reason: CONSTIPATION Metoprolol Tartrate (Lopressor Iv*) 5 mg IV Q6H PRN Reason: Blood Pressure or tachycardia Mometasone Furoate/Formoterol Fumar (Dulera 200/5 Mdi*) 2 puff INH BID [facility] Multivitamins/Minerals (Theragran/Minerals Tab*) 1 tab PO DAILY [facility] Ondansetron HCl (Zofran Inj*) 4 mg IV Q4H PRN Reason: NAUSEA Pantoprazole Sodium (Protonix Tab*) 40 mg PO BID [facility] Senna (Senokot Tab*) 1 tab PO BEDTIME PRN Reason: CONSTIPATION Thiamine HCl (Vitamin B-1 Tab*) 100 mg PO DAILY [facility] Tiotropium [place] (Spiriva Cap.Inh*) 1 cap INH DAILY [facility] Vital Signs - 8 hr 04/27/18 04/27/18 04/27/18 05:57 07:16 09:21 Temperature 99.1 F Pulse Rate 119 Respiratory 17 20 18 Rate Blood Pressure 148/78 (mmHg) O2 Sat by Pulse 95 Oximetry 04/27/18 12:15 Temperature 97.9 F Pulse Rate 121 Respiratory 16 Rate Blood Pressure 154/93 (mmHg) O2 Sat by Pulse 99 Oximetry Oxygen Devices in Use Now: None Appearance: NAD, sitting up in bed Eyes: - - Mild green crusting to the right eye Ears/Nose/Mouth/Throat: Mucous Membranes Moist Respiratory: Symmetrical Chest Expansion and Respiratory Effort, Clear to Auscultation Cardiovascular: NL Sounds; No Murmurs; No JVD, RRR Abdominal: NL Sounds; No Tenderness; No Distention Extremities: No Edema Skin: - - Right 2nd toe with erythema Neurological: Alert and Oriented x 3, NL Muscle Strength and Tone Nutrition: Taking PO's Result Diagrams: 04/20/18 07:19 04/20/18 07:19 Diagnostic Imagin04/21/[address] BRAIN WO IMPRESSION: STABLE RIGHT FRONTOPARIETAL SUBDURAL HEMATOMA. Assess/Plan/Problems-Billing Assessment: Mr. Bridges is an 87yo male with a PMHx of dementia, alcohol abuse, CKD stage 3, HTN, and COPD who presented from home c/o falls found to have an acute on chronic subdural hematoma. Patient lacks capacity and plan is for [facility] for him. - Patient Problems (1) URI (upper respiratory infection) Code(s): J06.9 - ACUTE UPPER RESPIRATORY INFECTION, UNSPECIFIED SNOMED Code(s) : 65669275 Comment: - Green crusting to right eye and postnasal drip - No sinus tenderness - Afebrile and no leukocytosis - Suspect this is viral - No antibiotics at this time, continue supportive care (encourage fluids and warm compresses) (2) Foot pain, left Code(s): M79.672 - PAIN IN LEFT FOOT SNOMED Code(s): 04879670 Comment: - No complaints today - Suspect this is gout - Continue colchicine (3) Knee pain, acute Code(s): M25.569 - PAIN IN UNSPECIFIED KNEE SNOMED Code(s): 65366917 Comment: - Resolved - Negative xray (4) Laceration Code(s): WXK4349 - SNOMED Code(s): 143651526 Comment: - Sutures removed on 3/3 from forehead without issues - Left elbow sutures due for removal 10-14 days after placement, which will be around 04/28/18. (5) Subdural hematoma Code(s): S06.5X9A - TRAUM SUBDR HEM W LOC OF UNSP DURATION, INIT SNOMED Code(s ): 945111054 Comment: - Head CT repeated 04/21, no changes noted and mentation appears stable - Appreciate Neurosurgery consult, no intervention required at this time - Continue neuro checks (6) Alcohol withdrawal delirium Code(s): F10.231 - ALCOHOL DEPENDENCE WITH WITHDRAWAL DELIRIUM SNOMED Code(s) : 1916087 Comment: - WAM DC'd - Pleasantly confused today (7) Alcoholism /alcohol abuse Code(s): F10.20 - ALCOHOL DEPENDENCE, UNCOMPLICATED SNOMED Code(s): 2657436 Comment: - SW consult ordered - is interested in patient being abstinent from alcohol and he lacks capacity to understand the health ramifications at this stage in his dementia - Patient to go to [facility]hab, He lacks capacity (8) Altered mental status Code(s): R41.82 - ALTERED MENTAL STATUS, UNSPECIFIED SNOMED Code(s): 187213281 Comment: - Suspect secondary to dementia and alcohol withdrawal - Continue haldol prn - Required haldol once daily, may benefit from seroquel at bedtime if he continues to have agitation in evening (9) COPD (chronic obstructive pulmonary disease) Code(s): J44.9 - CHRONIC OBSTRUCTIVE PULMONARY DISEASE, UNSPECIFIED SNOMED Code(s): 28056003 Comment: - No signs of exacerbation - Continue Dulera, Spiriva, and Albuterol PRN (10) DVT prophylaxis Code(s): EQG0600 - SNOMED Code(s): 987082274 Comment: - SCDs only in setting of SDH (11) Full code status Code(s): Z78.9 - OTHER SPECIFIED HEALTH STATUS SNOMED Code(s): 264982286 Status and Disposition: Inpatient, status is improving. Awaiting bed offer for [facility]. Attending: Javier Lane
[2018-04-28] MEDS: Heparin VIAL(*) 5000 UNITS/ML VIAL (FIVE THOUSAND) SUBCUT SCH ×3 (05:35→22:11)
[2018-04-28] MEDS: Tiotropium CAP.INH* CAP.INH/18 MCG (USE ORDER SET !) INH SCH (07:49)
[2018-04-28] MEDS: Mometasone/Formoter 200/5 MDI INH SCH ×2 (07:49→19:41)
[2018-04-28] MEDS: Acetaminophen TAB* 325 MG PO PRN (10:39)
[2018-04-28] MEDS: Folic Acid TAB* 1 MG PO SCH (10:39)
[2018-04-28] MEDS: Pantoprazole TAB * 40 MG TAB PO SCH ×2 (10:41→20:22)
[2018-04-28] MEDS: Thiamine TAB* 100 MG TAB PO SCH (10:41)
[2018-04-28] MEDS: Ferrous Sulfate TAB* 325 MG PO SCH (10:41)
[2018-04-28] MEDS: Multivitamins/Minerals TAB PO SCH (10:42)
--- NOTE | 2018-04-28 10:43 | PN ---
Subjective Date of Service: 04/28/18 Interval History: c/o left foot, great toe and ankle pain with movement and touch. c/o back pain. Denies chest pain or shortness of breath. denies abd pain n/v/d. Family History: Unchanged from Admission Social History: Unchanged from Admission Past Medical History: Unchanged from Admission Objective Active Medications: Acetaminophen (Tylenol Tab*) 650 mg PO Q4H PRN PRN Reason: PAIN Last Admin: 04/25/18 03:06 Dose: 650 mg Acetaminophen (Tylenol Supp*) 650 mg NV Q4H PRN PRN Reason: FEVER Last Admin: 04/20/18 19:07 Dose: 650 mg Albuterol (Ventolin 2.5 Mg/3 Ml Neb.Anyi*) 2.5 mg INH Q2H PRN PRN Reason: SOB/WHEEZING Docusate Sodium (Colace Cap*) 100 mg PO BID PRN PRN Reason: CONSTIPATION Last Admin: 04/23/18 14:05 Dose: 100 mg Ferrous Sulfate (Ferrous Sulfate Tab*) 325 mg PO DAILY [facility] Last Admin: 04/27/18 08:21 Dose: 325 mg Folic Acid (Folvite Tab*) 1 mg PO DAILY [facility] Last Admin: 04/27/18 08:29 Dose: Not Given Haloperidol (Haldol Tab*) 0.5 mg PO Q4H PRN PRN Reason: AGITATION Haloperidol Lactate (Haldol Inj Iv/Im*) 5 mg IM Q6H PRN PRN Reason: AGITATION Last Admin: 04/26/18 02:03 Dose: 5 mg Heparin Sodium (Porcine) (Heparin Vial(*)) 5,000 units SUBCUT Q8HR [facility] Last Admin: 04/28/18 05:35 Dose: 5,000 units Lorazepam (Ativan Tab(*)) 1 mg PO Q6H PRN PRN Reason: AGITATION Last Admin: 04/27/18 01:49 Dose: 1 mg Magnesium Hydroxide (Milk Of Magnesia Liq*) 30 ml PO Q4H PRN PRN Reason: CONSTIPATION Metoprolol Tartrate (Lopressor Iv*) 5 mg IV Q6H PRN PRN Reason: Blood Pressure or tachycardia Last Admin: 04/20/18 20:58 Dose: 5 mg Mometasone Furoate/Formoterol Fumar (Dulera 200/5 Mdi*) 2 puff INH BID [facility] Last Admin: 04/28/18 07:49 Dose: 2 puff Multivitamins/Minerals (Theragran/Minerals Tab*) 1 tab PO DAILY [facility] Last Admin: 04/27/18 08:21 Dose: 1 tab Ondansetron HCl (Zofran Inj*) 4 mg IV Q4H PRN PRN Reason: NAUSEA Pantoprazole Sodium (Protonix Tab*) 40 mg PO BID [facility] Last Admin: 04/27/18 21:30 Dose: 40 mg Senna (Senokot Tab*) 1 tab PO BEDTIME PRN PRN Reason: CONSTIPATION Thiamine HCl (Vitamin B-1 Tab*) 100 mg PO DAILY [facility] Last Admin: 04/27/18 08:21 Dose: 100 mg Tiotropium [place] (Spiriva Cap.Inh*) 1 cap INH DAILY [facility] Last Admin: 04/28/18 07:49 Dose: 1 cap Vital Signs - 8 hr 04/28/18 07:50 Pulse Rate 102 Respiratory 16 Rate O2 Sat by Pulse 98 Oximetry Oxygen Devices in Use Now: Nasal Cannula Eyes: No Scleral Icterus Neck: NL Appearance and Movements; NL JVP, Trachea Midline Respiratory: Symmetrical Chest Expansion and Respiratory Effort, - - diminshed t /o bilat Cardiovascular: NL Sounds; No Murmurs; No JVD, No Edema Abdominal: NL Sounds; No Tenderness; No Distention Extremities: No Clubbing, Cyanosis, - - left foot and ankle with swelling and erythema, left great toe with swellinga t the base, swelling noted to medial aspect of the left foot. Skin: - - scabbed skin tears noted to right elbow Nutrition: Taking PO's Result Diagrams: 04/20/18 07:19 04/20/18 07:19 Additional Lab and Data: Lab Results Diagnostic Imagin04/21/[address] BRAIN WO IMPRESSION: STABLE RIGHT FRONTOPARIETAL SUBDURAL HEMATOMA. Assess/Plan/Problems-Billing Assessment: Mr. Bridges is an 87yo male with a PMHx of dementia, alcohol abuse, CKD stage 3, HTN, and COPD who presented from home c/o falls found to have an acute on chronic subdural hematoma. Patient lacks capacity and plan is for [facility] for him. - Patient Problems (1) Altered mental status Current Visit: Yes Status: Acute Code(s): R41.82 - ALTERED MENTAL STATUS, UNSPECIFIED SNOMED Code(s): 928206773 Comment: - Suspect secondary to dementia and alcohol withdrawal - Continue haldol prn - Required haldol once daily, may benefit from seroquel at bedtime if he continues to have agitation in evening (2) Alcohol withdrawal delirium Current Visit: Yes Status: Acute Priority: High Code(s): F10.231 - ALCOHOL DEPENDENCE WITH WITHDRAWAL DELIRIUM SNOMED Code(s): 5368138 Comment: - BUCK DC'd - Pleasantly confused today (3) Foot pain, left Current Visit: Yes Status: Acute Code(s): M79.672 - PAIN IN LEFT FOOT SNOMED Code(s): 37644185 Comment: - c/o left foot pain to touch, swelling and redness noted, left great toe with swelling - Suspect this is gout - Continue colchicine (4) Subdural hematoma Current Visit: Yes Status: Acute Code(s): S06.5X9A - TRAUM SUBDR HEM W LOC OF UNSP DURATION, INIT SNOMED Code(s): 390909075 Comment: - Head CT repeated 04/21, no changes noted and mentation appears stable - Appreciate Neurosurgery consult, no intervention required at this time - Continue neuro checks (5) COPD (chronic obstructive pulmonary disease) Current Visit: No Status: Chronic Code(s): J44.9 - CHRONIC OBSTRUCTIVE PULMONARY DISEASE, UNSPECIFIED SNOMED Code(s): 60071352 Comment: - No signs of exacerbation - Continue Dulera, Spiriva, and Albuterol PRN (6) Laceration Current Visit: Yes Status: Acute Code(s): CEZ7057 - SNOMED Code(s): 956609723 Comment: - Sutures removed on 3 from forehead without issues - Left elbow sutures due for removal 10-14 days after placement, which will be around 04/28/18. (7) DVT prophylaxis Current Visit: No Status: Acute Code(s): LES0158 - SNOMED Code(s): 900923208 Comment: - SCDs only in setting of SDH (8) Full code status Current Visit: Yes Status: Acute Code(s): Z78.9 - OTHER SPECIFIED HEALTH STATUS SNOMED Code(s): 720434723 Status and Disposition: Inpatient, status is improving. Awaiting bed offer for [facility].
[2018-04-28] MEDS ORDERED: Colchicine* 0.6 MG TAB PO SCH (13:00)
[2018-04-28] MEDS ORDERED: NS 0.9% 500 ML* 500 ML IV ONE ×2 (15:59→16:15)
[2018-04-28 17:25] LABS: ABS Basophils 0.1 10^3/ul (0-0.2); ABS Eosinophils 0.1 10^3/ul (0-0.6); ABS Lymphocytes 0.6 10^3/ul (1.0-4.8); ABS Monocytes 0.7 10^3/ul (0-0.8); ABS Neutrophils 7.8 10^3/ul (1.5-7.7); ABS Nucleated RBC 0 10^3/ul; Eosinophil % 0.7 %; Hematocrit 32 % (42-52); Hemoglobin 10.5 g/dl (14.0-18.0); Lymphocyte % 6.7 %; Mean Corpuscular HGB Conc 33 g/dl (31-36); Mean Corpuscular Hemoglobin 32 pg (27-31); Mean Corpuscular Volume 95 fL (80-94); Mean Platelet Volume 7.2 fL (7.4-10.4); Nucleated Red Blood Cells % 0; Platelet Count 387 10^3/ul (150-450); Red Blood Count 3.34 10^6/ul (4.00-5.40); Red Cell Distribution Width 14 % (10.5-15); White Blood Count 9.3 10^3/ul (3.5-10.8)
[2018-04-28 17:44] LABS: BUN/Creatinine Ratio 28.9 (8-20); Calcium 8.5 mg/dL (8.6-10.3); EGFR African American 49.9 (>60); EGFR Non-African American 41.2 (>60); Potassium 3.7 mmol/L (3.5-5.0)
[2018-04-28] MEDS: NS 0.9% 1000 ML** 1,000 ML IV SCH (18:21)
[2018-04-28 20:19] LABS: Uric Acid 7.6 mg/dL (4.4-7.6)
[2018-04-29] MEDS: NS 0.9% 1000 ML** 1,000 ML IV SCH ×2 (05:12→17:43)
[2018-04-29] MEDS: Heparin VIAL(*) 5000 UNITS/ML VIAL (FIVE THOUSAND) SUBCUT SCH ×3 (05:32→23:09)
[2018-04-29 07:05] LABS: ABS Basophils 0 10^3/ul (0-0.2); ABS Eosinophils 0.1 10^3/ul (0-0.6); ABS Lymphocytes 0.6 10^3/ul (1.0-4.8); ABS Monocytes 0.6 10^3/ul (0-0.8); ABS Neutrophils 8.7 10^3/ul (1.5-7.7); ABS Nucleated RBC 0 10^3/ul; Eosinophil % 1.3 %; Hematocrit 33 % (42-52); Hemoglobin 11.1 g/dl (14.0-18.0); Lymphocyte % 5.7 %; Mean Corpuscular HGB Conc 33 g/dl (31-36); Mean Corpuscular Hemoglobin 32 pg (27-31); Mean Corpuscular Volume 95 fL (80-94); Mean Platelet Volume 7.3 fL (7.4-10.4); Nucleated Red Blood Cells % 0; Platelet Count 414 10^3/ul (150-450); Red Blood Count 3.48 10^6/ul (4.00-5.40); Red Cell Distribution Width 14 % (10.5-15)
[2018-04-29 07:20] LABS: BUN/Creatinine Ratio 26.8 (8-20); Calcium 8.6 mg/dL (8.6-10.3); EGFR African American 58.7 (>60); EGFR Non-African American 48.5 (>60); Potassium 3.9 mmol/L (3.5-5.0)
[2018-04-29] MEDS: Tiotropium CAP.INH* CAP.INH/18 MCG (USE ORDER SET !) INH SCH (08:11)
[2018-04-29] MEDS: Mometasone/Formoter 200/5 MDI INH SCH ×2 (08:11→21:37)
[2018-04-29] MEDS: Multivitamins/Minerals TAB PO SCH (08:45)
[2018-04-29] MEDS: Pantoprazole TAB * 40 MG TAB PO SCH ×2 (08:45→21:20)
[2018-04-29] MEDS: Thiamine TAB* 100 MG TAB PO SCH (08:45)
[2018-04-29] MEDS: Ferrous Sulfate TAB* 325 MG PO SCH (08:45)
[2018-04-29] MEDS: Folic Acid TAB* 1 MG PO SCH (08:45)
[2018-04-29] MEDS ORDERED: Colchicine* 0.6 MG TAB PO SCH (09:00)
[2018-04-29] MEDS ORDERED: predniSONE TAB* 10 MG PO ONE (18:21)
--- NOTE | 2018-04-29 18:28 | PN ---
Subjective Date of Service: 04/29/18 Interval History: patient more alert today. states that pain in his left foot is better. continues to c/o pain with palpation and movement. denies chest pain or shortness of breath. reports occasional cough. confused to place, time and situation. mumbling words at times , responses do not correlate with questions. Family History: Unchanged from Admission Social History: Unchanged from Admission Past Medical History: Unchanged from Admission Objective Active Medications: Acetaminophen (Tylenol Tab*) 650 mg PO Q4H PRN PRN Reason: PAIN Last Admin: 04/28/18 10:39 Dose: 650 mg Acetaminophen (Tylenol Supp*) 650 mg OR Q4H PRN PRN Reason: FEVER Last Admin: 04/20/18 19:07 Dose: 650 mg Albuterol (Ventolin 2.5 Mg/3 Ml Neb.Anyi*) 2.5 mg INH Q2H PRN PRN Reason: SOB/WHEEZING Docusate Sodium (Colace Cap*) 100 mg PO BID PRN PRN Reason: CONSTIPATION Last Admin: 04/23/18 14:05 Dose: 100 mg Ferrous Sulfate (Ferrous Sulfate Tab*) 325 mg PO DAILY [facility] Last Admin: 04/29/18 08:45 Dose: 325 mg Folic Acid (Folvite Tab*) 1 mg PO DAILY [facility] Last Admin: 04/29/18 08:45 Dose: 1 mg Haloperidol (Haldol Tab*) 0.5 mg PO Q4H PRN PRN Reason: AGITATION Haloperidol Lactate (Haldol Inj Iv/Im*) 5 mg IM Q6H PRN PRN Reason: AGITATION Last Admin: 04/26/18 02:03 Dose: 5 mg Heparin Sodium (Porcine) (Heparin Vial(*)) 5,000 units SUBCUT Q8HR [facility] Last Admin: 04/29/18 14:37 Dose: 5,000 units Lorazepam (Ativan Tab(*)) 1 mg PO Q6H PRN PRN Reason: AGITATION Last Admin: 04/27/18 01:49 Dose: 1 mg Magnesium Hydroxide (Milk Of Magnesia Liq*) 30 ml PO Q4H PRN PRN Reason: CONSTIPATION Metoprolol Tartrate (Lopressor Iv*) 5 mg IV Q6H PRN PRN Reason: Blood Pressure or tachycardia Last Admin: 04/20/18 20:58 Dose: 5 mg Mometasone Furoate/Formoterol Fumar (Dulera 200/5 Mdi*) 2 puff INH BID [facility] Last Admin: 04/29/18 08:11 Dose: 2 puff Multivitamins/Minerals (Theragran/Minerals Tab*) 1 tab PO DAILY [facility] Last Admin: 04/29/18 08:45 Dose: 1 tab Ondansetron HCl (Zofran Inj*) 4 mg IV Q4H PRN PRN Reason: NAUSEA Pantoprazole Sodium (Protonix Tab*) 40 mg PO BID [facility] Last Admin: 04/29/18 08:45 Dose: 40 mg Prednisone (Deltasone Tab*) 30 mg PO DAILY [facility] Senna (Senokot Tab*) 1 tab PO BEDTIME PRN PRN Reason: CONSTIPATION Thiamine HCl (Vitamin B-1 Tab*) 100 mg PO DAILY [facility] Last Admin: 04/29/18 08:45 Dose: 100 mg Tiotropium [place] (Spiriva Cap.Inh*) 1 cap INH DAILY [facility] Last Admin: 04/29/18 08:11 Dose: 1 cap Vital Signs - 8 hr 04/29/18 04/29/18 04/29/18 11:09 13:51 15:41 Temperature 98.1 F 97.7 F Pulse Rate 106 95 98 Respiratory 22 20 Rate Blood Pressure 120/47 110/67 117/66 (mmHg) O2 Sat by Pulse 94 97 Oximetry Oxygen Devices in Use Now: Nasal Cannula Appearance: elderly male ,resting in bed, confused to place, time and situation Eyes: No Scleral Icterus Ears/Nose/Mouth/Throat: Clear Oropharnyx, Mucous Membranes Moist Neck: NL Appearance and Movements; NL JVP, Trachea Midline Respiratory: Symmetrical Chest Expansion and Respiratory Effort, - - diminshed t /o bilat Cardiovascular: NL Sounds; No Murmurs; No JVD, No Edema Abdominal: NL Sounds; No Tenderness; No Distention Extremities: No Edema, No Clubbing, Cyanosis Skin: No Rash or Ulcers Neurological: Alert and Oriented x 3 Nutrition: Taking PO's Result Diagrams: 04/29/18 06:31 04/29/18 06:31 Additional Lab and Data: Lab Results Diagnostic Imagin04/21/[address] BRAIN WO IMPRESSION: STABLE RIGHT FRONTOPARIETAL SUBDURAL HEMATOMA. Assess/Plan/Problems-Billing Assessment: Mr. Bridges is an 87yo male with a PMHx of dementia, alcohol abuse, CKD stage 3, HTN, and COPD who presented from home c/o falls found to have an acute on chronic subdural hematoma. Patient lacks capacity and plan is for [facility] for him. - Patient Problems (1) Altered mental status Current Visit: Yes Status: Acute Code(s): R41.82 - ALTERED MENTAL STATUS, UNSPECIFIED SNOMED Code(s): 871855180 Comment: - Suspect secondary to dementia and alcohol withdrawal - Continue haldol prn - may benefit from seroquel at bedtime if he continues to have agitation in evening (2) Alcohol withdrawal delirium Current Visit: Yes Status: Acute Priority: High Code(s): F10.231 - ALCOHOL DEPENDENCE WITH WITHDRAWAL DELIRIUM SNOMED Code(s): 6960733 Comment: - BUCK BUTCHER'kandice - Pleasantly confused today (3) Foot pain, left Current Visit: Yes Status: Acute Code(s): M79.672 - PAIN IN LEFT FOOT SNOMED Code(s): 79428319 Comment: - c/o left foot pain to touch, swelling and redness noted, left great toe with swelling - improved redness today - Suspect this is gout stop colchicine - will start prednisone daily (4) Subdural hematoma Current Visit: Yes Status: Acute Code(s): S06.5X9A - TRAUM SUBDR HEM W LOC OF UNSP DURATION, INIT SNOMED Code(s): 177076795 Comment: - Head CT repeated 04/21, no changes noted and mentation appears stable - Appreciate Neurosurgery consult, no intervention required at this time - Continue neuro checks (5) COPD (chronic obstructive pulmonary disease) Current Visit: No Status: Chronic Code(s): J44.9 - CHRONIC OBSTRUCTIVE PULMONARY DISEASE, UNSPECIFIED SNOMED Code(s): 92101570 Comment: - No signs of exacerbation - Continue Dulera, Spiriva, and Albuterol PRN (6) Laceration Current Visit: Yes Status: Acute Code(s): IDH3852 - SNOMED Code(s): 528783238 Comment: - Sutures removed on 3/3 from forehead without issues - Left elbow sutures due for removal 10-14 days after placement, - steri strips removed and dry dresssing placed , no sutures in place (7) DVT prophylaxis Current Visit: No Status: Acute Code(s): JGQ6928 - SNOMED Code(s): 166530364 Comment: - SCDs only in setting of SDH (8) Full code status Current Visit: Yes Status: Acute Code(s): Z78.9 - OTHER SPECIFIED HEALTH STATUS SNOMED Code(s): 161847214 (9) GRACE (acute kidney injury) Current Visit: Yes Status: Acute Code(s): N17.9 - ACUTE KIDNEY FAILURE, UNSPECIFIED SNOMED Code(s): 97248104 Comment: bun/creatinine up yesterday - suspect this is related to dehydration as patient has had poor po inake - patient was given IVF bolus and fluids overnight - BUN and creatinine improving - will repeat BMP in the AM Status and Disposition: Inpatient, status is improving. Awaiting bed offer for [facility].
--- NOTE | 2018-04-29 21:17 | PN ---
Progress Note - Progress Note Date of Service: 04/29/18 Note: Paged for unwittness fall - found to have a bloody nose. Neuro checks unremarkable. Will get Head CT to rule out bleed. Continue neuro checks.
[2018-04-29] MEDS: predniSONE TAB* 10 MG PO SCH (21:21)
[2018-04-30] MEDS: LORazepam TAB(*) 1 MG PO PRN (03:16)
[2018-04-30] MEDS: Heparin VIAL(*) 5000 UNITS/ML VIAL (FIVE THOUSAND) SUBCUT SCH (05:38)
[2018-04-30] MEDS: Mometasone/Formoter 200/5 MDI INH SCH (07:32)
[2018-04-30] MEDS: Tiotropium CAP.INH* CAP.INH/18 MCG (USE ORDER SET !) INH SCH (07:32)
[2018-04-30 08:10] LABS: Calcium 8.1 mg/dL (8.6-10.3)
[2018-04-30 08:16] LABS: BUN/Creatinine Ratio 23.6 (8-20); EGFR African American 76.3 (>60)
[2018-04-30] MEDS: Ferrous Sulfate TAB* 325 MG PO SCH (08:21)
[2018-04-30] MEDS: Multivitamins/Minerals TAB PO SCH (08:21)
[2018-04-30] MEDS: Thiamine TAB* 100 MG TAB PO SCH (08:21)
[2018-04-30] MEDS: predniSONE TAB* 10 MG PO SCH (08:21)
[2018-04-30] MEDS: Pantoprazole TAB * 40 MG TAB PO SCH (08:21)
[2018-04-30] MEDS: Folic Acid TAB* 1 MG PO SCH (08:21)
[2018-04-30 12:39] VITALS: BP 127/66
--- NOTE | 2018-04-30 15:03 | DS ---
CC: Dara; Dr. Jimenez.* DISCHARGE SUMMARY: DATE OF ADMISSION: 04/19/18 DATE OF DISCHARGE: 04/30/18 ATTENDING PHYSICIAN: Dr. Margarita Brar * (dictated by Yanique Owens NP). PRIMARY CARE PROVIDER: Dr. Rolo Jimenez. PRIMARY DIAGNOSES: 1. Altered mental status related to dementia and alcohol withdrawal. 2. Stable subdural hematoma. 3. Upper respiratory tract infection. 4. Gout. SECONDARY DIAGNOSES: 1. Chronic obstructive pulmonary disease, 2. Alcohol abuse. 3. Chronic kidney disease stage 3. 4. Hypertension. STUDIES COMPLETED WHILE IN THE HOSPITAL: He had a CT of the brain on 04/18/18, radiologist's impression: Small acute on chronic right frontoparietal subdural hematoma, age-related atrophy and mild chronic small vessel ischemic disease. Had a chest x-ray on 04/18/18, radiologist's impression: Basilar fibrotic changes stable. He had maxillofacial CT 04/18/18, right supraorbital contusion , laceration. No acute fractures. Elbow x-ray of the left elbow: Osteopenia, osteoarthritis. No acute osseous injury. He had elbow x-ray on the right: Osteopenia, osteoarthritis, No acute osseous injury, He had a hand x-ray on of the right hand: Osteopenia, osteoarthritis. Findings suggest of no acute osseous injury. He had a CT of the brain on 04/19/18. Stable subacute right frontoparietal subdural hematoma. There is no shift. He had a repeat CT of the brain on 04/21/18. Stable right frontoparietal subdural hematoma. He had a knee x- ray on 04/22/18. Chronic chondrocalcinosis without evidence of fracture. He had a left ankle x-ray, degenerative and postsurgical changes of the left ankle without radiographic apparent fracture or dislocation. He had a repeat CT of the brain on 04/29/18, radiologist's impression; No traumatic intracranial abnormalities, stable, Chronic right subdural hematoma. Age- related atrophy, mild chronic small vessel ischemic disease. He had an electrocardiogram on 04/21/18, which showed sinus tachycardia at a rate of 100 with PACs. DISCHARGE MEDICATIONS: 1. Miroslava 60 mg p.o. daily. 2. Ferrous sulfate 325 mg p.o. daily. 3. Albuterol nebulizer 2.5 mg q.2 hours as needed for shortness of breath. 4. Multivitamin 1 tablet p.o. daily. 5. Spiriva 1 cap inhaled p.o. daily. 6. Thiamine 100 mg p.o. daily. 7. Senna 1 tablet p.o. at bedtime. 8. Protonix 40 mg p.o. b.i.d. 9. Milk of magnesia 30 mg p.o. q.4 hours as needed. 10. Lorazepam 1 mg p.o. q.6 hours as needed for agitation. 11. Folic acid 1 mg p.o. daily. 12. Docusate 100 mg p.o. b.i.d. p.r.n. 13. Acetaminophen 650 mg p.o. q.4 hours as needed, 14. Prednisone 30 mg p.o. daily x3 days, then 20 mg p.o. daily x3 days, and then 10 mg p.o. daily x3 days. HISTORY OF PRESENT ILLNESS: Mr. Bridges is an 87-year-old male with a past medial history significant for alcohol use disorder, currently drinks 12 beers and whisky daily; history of dementia and chronic encephalopathy with recurrent falls; chronic kidney disease stage 3; hypertension; COPD, who presents to the emergency room after mechanical fall with a blood alcohol level of 200. His family members reported that he tripped and fell on the concrete and tried to break the fall with his hands hitting both of his elbows and hands and then hitting his right mario. There was no reports of loss of consciousness during the fall. The patient was able to be ambulatory after the fall. Because of the bleeding, his family brought him to the emergency room as they thought he may require sutures. While in the emergency room, the patient had routine lab work drawn. He was only oriented to person. There was no gross focal deficits. They did put sutures in his right forehead which have subsequently been removed. He had multiple radiographic imaging which were all negative for fractures. His CT of the head did show a right parietal subdural hematoma which has been stable throughout this hospitalization with the most recent repeat CT of his head on . While in the hospital, he was monitored and had normal checks. He does have baseline dementia with some confusion. He is unaware where he is. He is oriented to person only. The patient did have a fall out of bed on 04/29/18. He did have a repeat CT of the head, which continued to show stable subdural hematoma and no changes. No acute injury. The patient also has gout in his left foot which he was treated with colchicine and now is currently being treated with prednisone tapering, which has improved his symptoms and pain in the left foot. He also does have gout in the right second toe. The patient does continue to have some confusion at baseline. He is only oriented to person. He has no other complaints. 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 At this time, Mr. Bridges is stable for discharge to [facility]. Vital Signs: Blood pressure 120/60, temperature was 98.2, heart rate was 77, respirations 18, O2 saturation 96% on room air. REVIEW OF SYSTEMS: The patient denies any acute pain. Denies any chest pain or shortness of breath. He reports that the pain in his left foot has improved. He currently denies any pain in the right second toe. He denies any nausea, vomiting or diarrhea though he does have dementia at baseline and is only oriented to self. Unable to obtain the rest of the review of systems. PHYSICAL EXAMINATION: General: At this time, Mr. Bridges is sitting in the chair. He is oriented to person only. His speech is clear. He does not appeared to be in any acute distress. HEENT: He does have a healing scab to his right forehead. Eyes: Pupils are equal and reactive to light. EOMS are intact. Sclerae anicteric and not pale. Oral mucosa is moist. Neck is supple. Lungs are clear to clear to bilaterally. No wheezes, rales or rhonchi. Cardiac: S1, S2. Regular rate and rhythm. No murmurs, rubs or gallops. Abdomen: Soft and nontender. Bowel sounds are present x4. He is able to move all 4 extremities. He does have healing scabbed areas to both elbows and ecchymosis to his left knee. His left foot continues to have slight redness noted to the medial aspect of the left foot and the base of the left great toe. He does also has some redness noted to the second toe on the right foot. Skin: Sutures were removed to the laceration to his forehead and Steri- Strips were removed from the laceration to his left elbow. Dry dressing was applied to both elbows. Neurologic: He is alert. He is oriented to person only. He is not in any acute distress. He will follow some commands. DISCHARGE PLAN: Mr. Bridges will be discharged to [facility]. Activity: PT/OT. He is a 2-assist, with a walker. He could have a regular diet. 1. Altered mental status. I suspect this is related to alcohol withdrawal which he is out of acute withdrawal. At this time, he has no tremors and no agitation, but continues to have confusion. I also suspect this is related to his underlying dementia. I would recommend continuing with thiamine, multivitamin and folic acid daily. He can have Lorazepam 1 mg p.o. q.6 hours as needed for severe agitation. 2. Subdural hematoma. 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 I would continue with supportive care and monitoring. He can have Tylenol as needed for any head pain. 3. Gout. The patient was treated with colchicine during his hospitalization. He has been transitioned to prednisone. He will continue prednisone 30 mg p.o. daily x3 days, then 20 mg p.o. daily x3 days, 10 mg p.o. daily x3 days. 4. COPD. The patient should continue on Spiriva and Dulera and albuterol meds as needed for shortness of breath. 5. Hypertension. The patient has been normotensive throughout his hospitalization and mild hypotension. I would continue to his hydrochlorothiazide and just continue to monitor his blood pressure. 6. GERD. He should continue on Protonix 40 mg p.o. daily. 7. Code status: He is a full code. The patient should follow up with his primary care provider in 1 to 2 weeks as needed. He should return to the emergency room for any significant alteration in mentation, facial drooping, weakness on one side, chest pain, or shortness of breath or any other concerning symptoms. This is a summarization of his hospitalization. If further details are needed, please see the entire medial record. TIME SPENT: Time spent on this discharge is 60 minutes, greater than half that time was spent implementing discharge plans and instructions. CONDITION ON DISCHARGE: Stable. DISPOSITION: Disposition on discharge is [facility]. I have discussed this with my attending, Dr. Margarita Brar; she is in agreement with my plan YANIQUE OWENS, ASSISTED LIVING ADMINISTRATOR [id number]/[facility] #: [id number] [facility] HOSPITALAlberto
== END 2018-04-30 14:55 | DRG 896 ==
LOC: ED 17:58 → MED 04-19 00:25 → OBSVTOIN 04-20 14:34
PROVIDERS: ADMIT Internal Medicine; ATTEND Internal Medicine
PROC: 0HQ1XZZ Repair Face Skin, External Approach (ICD-10-PCS; principal; 2018-04-20)
PROC: 0HQEXZZ Repair Left Lower Arm Skin, External Approach (ICD-10-PCS; 2018-04-20)
PROC: 0HQDXZZ Repair Right Lower Arm Skin, External Approach (ICD-10-PCS; 2018-04-20)
DX: F10.231 Alcohol dependence with withdrawal delirium (principal); S06.5X0A Traumatic subdural hemorrhage without loss of consciousness, initial encounter; S05.41XA Penetrating wound of orbit with or without foreign body, right eye, initial encounter; J98.11 Atelectasis; F03.90 Unspecified dementia, unspecified severity, without behavioral disturbance, psychotic disturbance, mood disturbance, and anxiety; W01.0XXA Fall on same level from slipping, tripping and stumbling without subsequent striking against object, initial encounter; N18.3 Chronic kidney disease, stage 3 (moderate); M19.022 Primary osteoarthritis, left elbow; M19.021 Primary osteoarthritis, right elbow; M85.842 Other specified disorders of bone density and structure, left hand; M85.841 Other specified disorders of bone density and structure, right hand; I12.9 Hypertensive chronic kidney disease with stage 1 through stage 4 chronic kidney disease, or unspecified chronic kidney disease; J44.9 Chronic obstructive pulmonary disease, unspecified; D64.9 Anemia, unspecified; S51.012A Laceration without foreign body of left elbow, initial encounter; I49.1 Atrial premature depolarization; J06.9 Acute upper respiratory infection, unspecified; R00.0 Tachycardia, unspecified; G31.9 Degenerative disease of nervous system, unspecified; K21.9 Gastro-esophageal reflux disease without esophagitis; S80.01XA Contusion of right knee, initial encounter; M10.9 Gout, unspecified; Y90.7 Blood alcohol level of 200-239 mg/100 ml; S51.011A Laceration without foreign body of right elbow, initial encounter; I44.0 Atrioventricular block, first degree; Z88.0 Allergy status to penicillin; Z91.81 History of falling; Y92.9 Unspecified place or not applicable; Z87.891 Personal history of nicotine dependence
CPT/HCPCS: 36415; 70450; 70486; 71045; 80048; 80053; 80320; 81003; 81015; 82140; 82550; 82607; 83605; 83735; 84439; 84443; 84484; 84550; 85025; 85610; 93005; 94640; 99285; A9270-GY; G0480; G8978-GP-CJ; G8979-GP-CI; G8987-GO-CJ; G8988-GO-CI; J1630; J1644; J2060; J3411; J3490; J7512

== ENCOUNTER 2018-08-31 16:24 | Emergency (ER) | payer MEDICARE ==
[2018-08-31] MEDS ORDERED: NS 0.9% 1000 ML** 1,000 ML IV ONE (19:42)
[2018-08-31] MEDS ORDERED: methylPREDNISolone 125 MG* 2 ML VIAL IV ONE (19:42)
[2018-08-31] MEDS ORDERED: Albuterol 2.5 MG/3 ML NEB.SOL* (0.083%) INH ONE (19:42)
--- NOTE | 2018-08-31 19:51 | ED ---
Respiratory - HPI Summary HPI Summary: This patient is a 87 year old M presenting to [facility] accompanied by and daughter with a chief complaint of hemoptysis since 5 days ago. The patient rates the pain 0/10 in severity, per triage. Symptoms aggravated by nothing. Symptoms alleviated by nothing. Patient denies decreased appetite, SOB, weakness , chest pain. Per , patient had pneumonia in May 2018. states that patient was given antibiotics which relieved his symptoms. Per , patient had a CT scan done in June 2018 at [facility] which was negative. states that patient has been coughing up dark brown matter for a couple of weeks. Per , Dr. Jimenez, primary care provider at [facility], prescribed patient antibiotics for 5 days which provided relief. 5 days after the antibiotics, patient reports hemoptysis per . PMHx emphysema for which he uses an inhaler. Patient denies outdoor work in gardens or dirt. - History of Current Complaint Chief Complaint: EDUpperRespComplaint Stated Complaint: COUGHING UP BROWN MATTER/BLOOD X 2 WEEKS, PER Time Seen by Provider: 08/31/18 19:42 Hx Obtained From: Patient, Family/Valet - Onset/Duration: Lasting Days - 5, Still Present Timing: Constant Pain Intensity: 0 Character: Wheezing, Cough (Productive) - Dark brown matter at first and currently red blood Sputum Color: Simpson, Brown, Red (Blood) Aggravating Factor(s): Nothing Alleviating Factor(s): Nothing - Allergy/Home Medications Allergies/Adverse Reactions: Allergies Allergy/AdvReac Type Severity Reaction Status Date / Time Penicillins Allergy Hives Verified 08/31/18 16:33 Home Medications: Home Medications Omeprazole 20 mg PO DAILY 08/31/18 [History Confirmed 08/31/18] PMH/Surg Hx/FS Hx/Imm Hx Previously Healthy: No Endocrine/Hematology History: Denies: Hx Diabetes Cardiovascular History: Reports: Hx Hypertension Respiratory History: Reports: Hx Chronic Bronchitis, Hx Chronic Obstructive Pulmonary Disease (COPD), Hx Pneumonia Denies: Hx Asthma History: Denies: Hx Dialysis Sensory History: Reports: Hx Deafness Denies: Hx Contacts or Glasses, Hx Hearing Aid Opthamlomology History: Denies: Hx Contacts or Glasses Neurological History: Reports: Hx Dementia Denies: Hx Seizures Psychiatric History: Denies: Hx Autism - Cancer History Cancer Type, Location and Year: Denies Hx CA - Surgical History Surgery Procedure, Year, and Place: bilateral ankles - years ago Infectious Disease History: No Infectious Disease History: Denies: Traveled Outside the [place] in Last 30 Days - Family History Known Family History: Positive: Other - Spinal tumor - Social History Alcohol Use: Daily Alcohol Amount: 12+ beers and whiskey daily Hx Substance Use: No Substance Use Type: Reports: None Hx Tobacco Use: Yes Smoking Status (MU): Former Smoker Review of Systems Negative: Chest Pain Positive: Other - hemoptysis. Negative: Shortness Of Breath Gastrointestinal: Negative - Decreased apeptite Negative: Weakness All Other Systems Reviewed And Are Negative: Yes Physical Exam - Summary Physical Exam Summary: Appearance: Elderly male lying in bed comfortably, no acute distress, vital signs are unremarkable Skin: Warm, dry, no obvious rash Eyes: sclera anicteric, no conjunctival pallor ENT: mucous membranes moist, pharynx appears normal Neck: Supple, nontender Respiratory: Signs of consolidation in the right chest, bronchial breath sounds and egophony in right chest, Scattered wheezing bilaterally Cardiovascular: Normal S1, S2. No murmurs. Normal distal pulses in tibial and radial bilaterally. Abdomen: Soft, nontender, normal active bowel sounds present Musculoskeletal: Normal, Strength/ROM Intact Neurological: A&Ox3, awake and alert, mentation is normal, speech is fluent and appropriate Psychiatric: affect is normal, does not appear anxious or depressed Triage Information Reviewed: Yes Vital Signs On Initial Exam: Initial Vitals Temp Pulse Resp BP Pulse Ox 98.5 F 71 16 155/90 96 08/31/18 16:29 08/31/18 16:29 08/31/18 16:29 08/31/18 16:29 08/31/18 16:29 Vital Signs Reviewed: Yes Diagnostics - Vital Signs Vital Signs Temp Pulse Resp BP Pulse Ox 08/31/18 18:36 98.2 F 61 16 150/81 94 08/31/18 16:29 98.5 F 71 16 155/90 96 - Laboratory Result Diagrams: 08/31/18 20:15 08/31/18 20:15 Lab Statement: Any lab studies that have been ordered have been reviewed, and results considered in the medical decision making process. - Radiology CXR Radiology Interpretation Completed By: ED Physician Summary of Radiographic Findings: Improving left-sided infiltrate. No acute changes. Pending offical report. - EKG 1943 Cardiac Rate: NL - 70 BPM EKG Rhythm: Sinus Rhythm Summary of EKG Findings: NSR at 70 BPM, P waves, QRS complex, and T waves are within normal limits, T waves and intervals are normal, no ischemic changes. This is a normal EKG. Disposition - Course Course Of Treatment: This patient is a 87 year old M presenting to [facility] accompanied by and daughter with a chief complaint of hemoptysis since 5 days ago. Patient denies decreased appetite, SOB, weakness, chest pain. Per , patient had pneumonia in May 2018. PMHx emphysema for which he uses an inhaler. Physical exam reveals elderly male lying in bed comfortably, no acute distress, vital signs are unremarkable. Lung exam reveals signs of consolidation in the right chest, bronchial breath sounds and egophony in right chest, and scattered wheezing bilaterally. Test results with no significant abnormalities except for Hgb 11.9, Hct 37, RDW 18, MPV 6.6, INR 1.01, APTT 92.9 , BUN/Creatinine Ratio 20.5, Glucose 105, and AST 11. In the ED course, the patient was given methylpredinsolone sodium succinate 125 mg and Albuterol 2.5 mg. Chest X-ray reveals improving left-sided infiltrate and no acute changes. EKG reveals NSR at 70 BPM, P waves, QRS complex, and T waves are within normal limits, T waves and intervals are normal, no ischemic changes. This is a normal EKG. We discussed patient care with miles Dalal, who agrees to admit patient. Upon evaluation by hospitalist, hospitalist thinks patient does not think patient needs to be admitted. Hospitalist asks that patient gets discharged. We discussed plan with patient. Patient is agreeable with this plan. Patient will be discharged. - Diagnoses Provider Diagnoses: Pneumonia - Physician Notifications Discussed Care Of Patient With: Hua Serrano Time Discussed With Above Provider: 22:07 Instructed by Provider To: Other - king Dalalist, agrees to admit patient Discharge - Sign-Out/Discharge Documenting (check all that apply): Patient Departure - Discharge Patient Received Moderate/Deep Sedation with Procedure: No - Discharge Plan Condition: Good Disposition: HOME Prescriptions: ceFUROXime TAB(*) [Ceftin TAB 250 MG(*)] 500 mg PO BID #20 tab DOXYcycline CAP(*) [DOXYcycline 100MG CAP(*)] 100 mg PO BID #20 cap Patient Education Materials: Pneumonia (ED) Referrals: Rolo Jimenez MD [Primary Care Provider] - 3 Days (if not improving) - Billing Disposition and Condition Condition: GOOD Disposition: Home - Attestation Statements Document Initiated by Scribe: Yes Documenting Scribe: Sammie Woods Provider For Whom Daniela is Documenting (Include Credential): Bogdan Riggs MD Scribe Attestation: Yas Anderson Alison Kim, scribed for Bogdan Riggs MD on 09/01/18 at 0612. Scribe Documentation Reviewed: Yes Provider Attestation: The documentation as recorded by the Yas ortiz Alison Kim accurately reflects the service I personally performed and the decisions made by Bogdan patel MD Status of Scribe Document: Viewed
[2018-08-31 20:27] LABS: ABS Eosinophils 0.2 10^3/ul (0-0.6); ABS Monocytes 0.5 10^3/ul (0-0.8); ABS Neutrophils 3.8 10^3/ul (1.5-7.7); Eosinophil % 3.8 %; Hematocrit 37 % (42-52); Hemoglobin 11.9 g/dL (14.0-18.0); Lymphocyte % 18.3 %; Mean Corpuscular HGB Conc 32 g/dL (31-36); Mean Corpuscular Hemoglobin 27 pg (27-31); Mean Corpuscular Volume 83 fL (80-94); Mean Platelet Volume 6.6 fL (7.4-10.4); Platelet Count 294 10^3/uL (150-450); Red Blood Count 4.46 10^6 /uL (4.18-5.48); Red Cell Distribution Width 18 % (10-15); White Blood Count 5.4 10^3/uL (3.5-10.8)
[2018-08-31 20:36] LABS: Activated Partial Thrombo Time 92.9 seconds (26.0-38.0); INR 1.01 (0.82-1.09)
[2018-08-31 20:44] LABS: Albumin 3.9 g/dL (3.2-5.2); Albumin/Globulin Ratio 1.1 (1-3); BUN/Creatinine Ratio 20.5 (8-20); Calcium 9.7 mg/dL (8.6-10.3); EGFR African American 98.7 (>60); EGFR Non-African American 81.5 (>60); Globulin 3.6 g/dL (2-4); Potassium 3.9 mmol/L (3.5-5.0); Total Bilirubin 0.3 mg/dL (0.2-1.0); Total Protein 7.5 g/dL (6.4-8.9)
[2018-08-31 23:55] VITALS: BP 168/89
--- NOTE | 2018-09-01 08:04 | PN ---
Progress Note - Progress Note Date of Service: 08/31/18 Note: Report from Dr. Palencia was called to me at 7:45a to make aware of possible underlying mass This report was faxed to Dr. Bee (primary) at 8am by Jose Miguel inward toll operator for follow up It appears this patient is aware of lung mass (from report dated 2011)
== END 2018-08-31 23:53 | disposition home or self-care (01) ==
LOC: ED 16:24
DX: J18.9 Pneumonia, unspecified organism (principal); I10 Essential (primary) hypertension; J44.9 Chronic obstructive pulmonary disease, unspecified; Z87.891 Personal history of nicotine dependence; Z79.899 Other long term (current) drug therapy; Z88.0 Allergy status to penicillin
CPT/HCPCS: 36415; 71045; 80053; 83605; 84484; 85025; 85610; 85730; 87040; 93005; 96361; 96374; 99283; J2930